=== PATIENT | male | born 1955 | race Caucasian/White ===

== ENCOUNTER 2016-09-02 10:25 | Observation (INO) | payer MEDICARE, OTHER ==
[~2016-09-02] VITALS: Ht 165.1 cm; Wt 83.8 kg
[~2016-09-02 10:25] MED LIST: ASPI81CH CHEW; CIPR-9 PO; GLUCTES12; HUMALOG SQ; HYDR-3583 PO; IPRASOL INH; LEVEMIR SQ; LISI2.5T3 PO; LYRI200C PO; METF-382 PO; OXYBXL10 PO; PRED20 PO; SYMB80AE INH; TAMS5CAP PO; [UNRECOGNIZED DRUG - SUPPLY]
[2016-09-02] MEDS ORDERED: POVIDONE IODINE 5% (ANTISEPSIS KIT) 4 APPLICATIONS EACH NARE PRN (11:00)
[2016-09-02] MEDS ORDERED: ceFAZolin 2 GM PREMIX 50 ML IV SCH (11:00)
[2016-09-02] MEDS ORDERED: LACTATED RINGER'S 1000 ML IV PRN (11:00)
[2016-09-02] MEDS ORDERED: SODIUM CHLORID 0.9% 500 ML IV PRN (11:00)
[2016-09-02] MEDS ORDERED: METOPROLOL TARTRATE 25 MG TAB PO PRN (11:00)
[2016-09-02] MEDS ORDERED: INSULIN HUMAN REGULAR 1,000 UNITS/10 ML VIAL SQ PRN ×2 (11:00→14:00)
[2016-09-02] MEDS ORDERED: CHLORHEXIDINE GLUCONATE 2 % 1 PACK (2 CLOTHS) TOPICAL PRN (11:00)
[2016-09-02 11:15] VITALS: BP 164/86; PULSE 92; RESP 18; TEMP 98.6; O2SAT 96
[2016-09-02 11:48] LABS: AUTOMATED NEUTROPHIL # 10.2 TH/MM3 (1.8-7.7); BASOPHIL # 0.1 TH/MM3 (0-0.2); BASOPHIL % 0.5 % (0.0-2.0); EOSINOPHIL # 0.2 TH/MM3 (0-0.4); EOSINOPHIL % 1.6 % (0.0-4.0); HEMATOCRIT 41.1 % (39.0-51.0); HEMO FLAGS DIFF FINAL; LYMPH % 15.3 % (9.0-44.0); LYMPHOCYTE # 2.1 TH/MM3 (1.0-4.8); MEAN CELL VOLUME 80.8 FL (80.0-100.0); MEAN CORPUSCULAR HEMOGLOBIN 26.9 PG (27.0-34.0); MEAN CORPUSCULAR HGB CONC 33.3 % (32.0-36.0); MONO % 6.9 % (0.0-8.0); NEUT % 75.7 % (16.0-70.0); PLATELET COUNT 206 TH/MM3 (150-450); RED BLOOD COUNT 5.09 MIL/MM3 (4.50-5.90); RED CELL DISTRIBUTION WIDTH 14.6 % (11.6-17.2); WHITE BLOOD COUNT 13.5 TH/MM3 (4.0-11.0)
[2016-09-02] MEDS ORDERED: PROPOFOL 200 MG/20 ML AMP IV ONE (12:00)
[2016-09-02] MEDS ORDERED: ONDANSETRON HCL 4 MG/2 ML VIAL IV PUSH ONE (12:00)
[2016-09-02] MEDS ORDERED: FAMOTIDINE 20 MG/2 ML VIAL ONE (12:08)
[2016-09-02] MEDS ORDERED: RESP: ALBUTEROL 2.5 MG/3 ML NEB (SCH) ONE (12:11)
[2016-09-02] MEDS ORDERED: methylPREDNISolone SOD SUCC 125 MG/2 ML VIAL ONE (12:12)
[2016-09-02] MEDS ORDERED: SUGAMMADEX SODIUM 200 MG/2 ML VIAL IV PUSH ONE ×2 (12:49)
[2016-09-02] MEDS ORDERED: BUPIVACAINE HCL PF 0.5% 30 ML VIAL ONE (12:56)
[2016-09-02] MEDS ORDERED: ACETAMINOPHEN/HYDROcodone 325 MG/7.5 MG TAB PO PRN (14:00)
--- NOTE | 2016-09-02 14:08 | PD.OP ---
Operative Report Date of Surgery: Sep 02, 2016 Preoperative Diagnosis: Scrotal abscess Postoperative Diagnosis: Same Procedure: I and D of scrotal abscess Anesthesia: Gen. LMA Surgeon: Juan Ramon Herrera Drill Hand(s): None Resident Surgeon: None Operation and Findings: Vin Lopez is a 61-year-old male presented to the office yesterday with right sided scrotal swelling and pain. On physical exam, it appeared that he had a right scrotal abscess. This was then later confirmed on ultrasound findings. Decision was made then to bring the patient to the operating room to undergo I and D of scrotal abscess. Risk and benefits were discussed preoperatively and he is willing to proceed. The patient was brought to the operating room and identified by myself as Vin Lopez. He was placed in the dorsal lithotomy position, prepped and draped in usual sterile fashion, received preprocedure antibiotics, and general LMA anesthesia was administered. 15 blade was used to make the opening incision over the right scrotal wall area. Pus was then noted to drain and a culture was sent. The pocket was then evacuated of all purulent material and then washed out with a bulb syringe with normal saline. Half-inch iodoform packing was then placed into the wound and then scrotal support with fluffs were then placed. He tolerated the procedure well was transferred to the recovery room in stable condition. Juan Ramon Herrera DO Sep 02, 2016 14:08
[2016-09-02] MEDS ORDERED: DO NOT ADM ANY ANTICOAGULANT DRUGS PRN (14:15)
[2016-09-02] MEDS ORDERED: fentaNYL CITRATE 250 MCG/5 ML AMP ONE (14:23)
[2016-09-02] MEDS: SODIUM CHLOR 0.45% 1000 ML INJ 1,000 ML IV SCH (14:30)
--- NOTE | 2016-09-02 15:00 | EKG ---
Date Performed: 09/02/2016 Time Performed: 11:31:03 PTAGE: 61 years EKG: Sinus rhythm WITH FIRST DEGREE AV BLOCK WITH FREQUENT SUPRAVENTRICULAR PREMATURE COMPLEXES INCOMPLETE RIGHT BUNDL E BRANCH BLOCK SEPTAL MYOCARDIAL INFARCTION , PROBABLY OLD ABNORMAL ECG PREVIOUS TRACING : 02/03/2016 14.09 DOCTOR: Harley Costa Interpretating Date/Time 09/02/2016 14:59:19
[2016-09-02] MEDS: BUDESONIDE-FORMOTEROL 80/4.5 MCG INHALER INH SCH ×2 (15:15→21:00)
[2016-09-02] MEDS: RESP: ALBUTEROL 2.5 MG/IPRATROPIUM 0.5 MG NEB (SCH) NEB (16:00)
[2016-09-02 16:35] VITALS: BP 152/73; PULSE 92; RESP 18; TEMP 97.6; O2SAT 93
[2016-09-02] MEDS: TAMSULOSIN HCL 0.4 MG CAP PO SCH ×2 (16:55→20:19)
[2016-09-02] MEDS: LOW DOSE INSULIN NOVOLOG SUPPLEMENTAL SCALE SQ SCH ×2 (18:12→20:30)
[2016-09-02] MEDS ORDERED: DEXTROSE 50% IN WATER 50 ML VIAL(D50) IV PUSH PRN (18:15)
[2016-09-02] MEDS ORDERED: GLUCAGON 1 MG/ML VIAL OTHER PRN (18:15)
[2016-09-02 20:00] VITALS: BP 135/67; PULSE 101; RESP 22; TEMP 98.7; O2SAT 92
[2016-09-02] MEDS: ceFAZolin 2 GM PREMIX 50 ML IV SCH (20:19)
[2016-09-02] MEDS: PREGABALIN 100 MG CAP PO SCH (20:19)
[2016-09-02] MEDS: INSULIN DETEMIR 100 UNITS/ML VIAL SQ SCH (20:30)
[2016-09-02] MEDS ORDERED: guaiFENesin SOLUTION 200 MG/10 ML CUP PO PRN (22:15)
[2016-09-03] VITALS: BP 135/76; PULSE 98; RESP 22; TEMP 97.6; O2SAT 94
[2016-09-03] MEDS: MORPHINE SULFATE 4 MG/ML INJ IV PUSH PRN ×3 (01:52→09:23)
[2016-09-03] MEDS: SODIUM CHLOR 0.45% 1000 ML INJ 1,000 ML IV SCH ×2 (02:02→11:00)
[2016-09-03] MEDS: ceFAZolin 2 GM PREMIX 50 ML IV SCH ×2 (04:15→11:32)
[2016-09-03] MEDS: LOW DOSE INSULIN NOVOLOG SUPPLEMENTAL SCALE SQ SCH ×2 (05:34→11:35)
[2016-09-03] MEDS: RESP: ALBUTEROL 2.5 MG/IPRATROPIUM 0.5 MG NEB (SCH) NEB ×2 (07:47→11:13)
--- NOTE | 2016-09-03 07:48 | HHI.FF ---
Face to Face Verification Physical Therapy Order: Evaluate and Treat Home Health Nursing Order: Medical education Diabetic education Wound care and dressing changes (change packing daily with 1/2 iodoform gauze; ) Home Health Aide Order: To Assist In: Bathing and personal care Ink Jet Operator Order: To Evaluate: Support services I have seen patient Vin Blair on 09/03/16. My clinical findings support the need for the requested home health care services because: Patient has SOB Infection w/ risk of complications I certify that my clinical findings support that this patient is homebound because: Post-op weakness Hx COPD- exertion dyspnea/weakness Juan Ramon Herrera DO Sep 03, 2016 07:48
[2016-09-03 07:49] VITALS: O2SAT 94
[2016-09-03 08:00] VITALS: BP 119/59; PULSE 86; RESP 17; TEMP 97.9; O2SAT 92
--- NOTE | 2016-09-03 08:07 | HHI.PR ---
Subjective Patient symptoms today Pt seen and examined. Feeling better s/p I&D Objective Vital Signs Vital Signs Date Time Temp Pulse Resp B/P Pulse Ox O2 Delivery O2 Flow Rate FiO2 09/03/16 08:00 97.9 86 17 119/59 92 09/03/16 07:49 94 Nasal Cannula 3.00 09/03/16 01:08 Nasal Cannula 3.00 09/03/16 00:00 97.6 98 22 135/76 94 09/02/16 20:13 92 Nasal Cannula 2.00 09/02/16 20:00 98.7 101 22 135/67 92 09/02/16 16:35 97.6 92 18 152/73 93 09/02/16 16:00 98.2 89 19 140/67 96 Nasal Cannula 3 09/02/16 15:45 90 19 137/65 95 Nasal Cannula 3 09/02/16 15:30 86 19 140/75 97 Nasal Cannula 8 Aerosol Mask 09/02/16 15:15 89 17 147/73 95 Nasal Cannula 3 09/02/16 15:00 85 17 138/71 95 Nasal Cannula 3 09/02/16 14:45 85 17 134/66 95 Simple Mask 6 09/02/16 14:30 91 16 149/72 95 Simple Mask 6 09/02/16 14:15 97.4 96 16 154/72 97 Simple Mask 6 09/02/16 11:15 98.6 92 18 164/86 96 Result Diagram: 09/02/16 1115 Objective Remarks Abd:soft,nt,nd Wound: packing in place Medications and IVs Current Medications Medications (Trade) Dose Ordered Sig/Lela Route Start Time Stop Time Status Last Admin (Ancef 2 Gm Premix) 50 ml @ 100 mls/hr Q8H IV 09/02/16 20:00 09/03/16 04:15 ([place] 7.5-325 Mg) 1 tab Q4H PRN PO 09/02/16 14:00 Morphine Sulfate 1 mg 1 mg Q3H PRN IV PUSH 09/02/16 14:00 09/03/16 05:30 (1/2 NS 1000 ml Inj) 1,000 ml @ 100 mls/hr Q10H IV 09/02/16 15:00 09/03/16 02:02 (Prinivil) 2.5 mg DAILY PO 09/03/16 09:00 (Levemir Inj) 24 units Q12HR SQ 09/02/16 21:00 09/02/16 20:30 (Deltasone) 20 mg DAILY PO 09/03/16 09:00 (Symbicort 80-4.5 Mcg Inh) 1 puff Q12HR INH 09/02/16 15:15 (Lyrica) 200 mg Q12HR PO 09/02/16 21:00 09/02/16 20:19 (Flomax) 0.4 mg Q12HR PO 09/02/16 15:15 09/02/16 20:19 (NovoLIN R INJ) 1 units DAILY@08 PRN SQ 09/02/16 14:00 09/03/16 13:59 Miscellaneous Information ALL NURSING DEPARTME... UNSCH PRN .XX 09/02/16 14:15 09/03/16 14:14 (D50w (Vial) Inj) 25 ml UNSCH PRN IV PUSH 09/02/16 18:15 (Glucagon Inj) 1 mg UNSCH PRN OTHER 09/02/16 18:15 (Robitussin Liq) 600 mg Q6H PRN PO 09/02/16 22:15 09/03/16 01:53 Assessment and Plan Assessment and Plan Stable s/p I&D of scrotal abcess D/C home VNA for packing changes Juan Ramon Herrera DO Sep 03, 2016 08:07
[2016-09-03] MEDS ORDERED: HYDR-3288 PO (08:25)
[2016-09-03] MEDS: BUDESONIDE-FORMOTEROL 80/4.5 MCG INHALER INH SCH (09:00)
[2016-09-03] MEDS ORDERED: LISINOPRIL 5 MG TAB PO SCH (09:00)
[2016-09-03] MEDS ORDERED: predniSONE 20 MG TAB PO SCH (09:00)
[2016-09-03] MEDS: TAMSULOSIN HCL 0.4 MG CAP PO SCH (09:06)
[2016-09-03] MEDS: PREGABALIN 100 MG CAP PO SCH (09:06)
[2016-09-03] MEDS: INSULIN DETEMIR 100 UNITS/ML VIAL SQ SCH (09:14)
[2016-09-03 11:14] VITALS: O2SAT 96
[2016-09-03 12:00] VITALS: BP 133/61; PULSE 88; RESP 18; TEMP 97.3; O2SAT 94
[2016-09-03 14:15] VITALS: O2SAT 97
[2016-09-06] MEDS ORDERED: TAMS5CAP PO (14:55)
== END 2016-09-03 15:21 | disposition home or self-care (01) ==
LOC: HSDC 10:25 → N07B 14:04
PROVIDERS: ADMIT Urology; ATTEND Urology
DX: N49.2 Inflammatory disorders of scrotum (principal); I44.0 Atrioventricular block, first degree; I45.10 Unspecified right bundle-branch block; R94.31 Abnormal electrocardiogram [ECG] [EKG]; I25.2 Old myocardial infarction; I10 Essential (primary) hypertension; E78.5 Hyperlipidemia, unspecified; I73.9 Peripheral vascular disease, unspecified; J44.9 Chronic obstructive pulmonary disease, unspecified; E11.9 Type 2 diabetes mellitus without complications
CPT/HCPCS: 00920; 55100; 82948; 85025; 87015; 87070; 87102; 87116; 87205; 87206; 93005; 94640; 94664; G0378; J0690; J1815; J2270; J2405; J2930; J3010; J7120; J7512; J7613

== ENCOUNTER 2016-09-25 12:23 | Inpatient (IN) | payer MEDICARE, OTHER ==
[~2016-09-25] VITALS: Ht 165.1 cm; Wt 87.0 kg
[~2016-09-25 12:23] MED LIST changes: -ASPI81CH CHEW; -CIPR-9 PO; +HYDR-3288 PO; +HYDR-3533 PO; -HYDR-3583 PO; -METF-382 PO; +NYST100084 TOPICAL; -OXYBXL10 PO; +SULF1TAB23 PO
[2016-09-25] MEDS ORDERED: SODIUM CHLOR 0.9% 1000 ML INJ 1,000 ML IV SCH (12:31)
[2016-09-25 12:35] VITALS: BP 179/88; PULSE 94; RESP 16; TEMP 98.1; O2SAT 95
[2016-09-25 12:45] VITALS: O2SAT 95
[2016-09-25] MEDS ORDERED: ONDANSETRON HCL 4 MG/2 ML VIAL IVP ONE (12:45)
[2016-09-25] MEDS ORDERED: MORPHINE SULFATE 4 MG/ML INJ IV PUSH ONE ×2 (12:45→15:00)
--- NOTE | 2016-09-25 13:12 | PD ---
HPI Chief Complaint: Abnormal Results Time Seen by Provider: 13:11 Travel History International Travel<30 days: No Contact w/Intl Traveler<30days: No Traveled to known affect area: No History of Present Illness HPI 61-year-old male that presents to the ED for evaluation of hyperglycemia as well as testicular pain and swelling. Per patient he has a chronic history of diabetes for years. He takes NovoLog an metformin. Per patient she's been compliant with his medications but his sugars have been in the 400s. He denies any chest pain or shortness of breath. He states that he's been feeling weak. Per patient he also had recent surgery about 2-3 weeks ago for incision and drainage of abscess to his right testicle. Per patient he follows with Dr. Herrera for this. Per patient he last saw him about a week or 2 ago and was everything was fine. Per patient is concerned because he still has swelling and redness and it seems to be getting more swelling now. He does have a history of MRSA. States taking pain medications and his insulin as well as metformin daily. He states that his blood sugars have been in the 400 600s daily. He denies any history of DKA. He states that for the most per his been feeling weak for the past week but denies any nausea or vomiting. No bowel movement issues. No urinary issues alert and oliguria secondary to unknown cause. Patient states that he has 5 out of 10 pain in his testicles. PFSH Past Medical History Hx Anticoagulant Therapy: Yes Arthritis: Yes (rue) Asthma: Yes Blood Disorders: No Anxiety: Yes Depression: No Heart Rhythm Problems: Yes (arrythmia ) Cancer: No Cardiovascular Problems: Yes (htn, palpitations) High Cholesterol: Yes Chemotherapy: No Chest Pain: Yes Congestive Heart Failure: No COPD: No Diabetes: Yes Patient Takes Glucophage: Yes Diminished Hearing: No Endocrine: Yes Gastrointestinal Disorders: Yes (GERD, ulcers, appendectomy, ) GERD: Yes Glaucoma: No Genitourinary: Yes (fistula ) Hepatitis: No Hiatal Hernia: No Hypertension: Yes Immune Disorder: No Medical other: Yes (penial edema also the scrotal area) Musculoskeletal: No Neurologic: No Psychiatric: Yes Reproductive: No Respiratory: Yes (copd) Radiation Therapy: No Sleep Apnea: Yes Thyroid Disease: No Ulcer: Yes Influenza Vaccination: No Past Surgical History Abdominal Surgery: Yes (APPY) AICD: No Appendectomy: Yes Body Medical Devices: LEG STENT kieran, Genitourinary Surgery: Yes (TURP ; 08/14 CYSTOSCOPY; 10/14 EUA) Joint Replacement: No Pacemaker: No Other Surgery: Yes Social History Alcohol Use: No Tobacco Use: Yes (1 PPD of cigaretts and cigars) Substance Use: No Allergies-Medications (Allergen,Severity, Reaction): Coded Allergies: Gabapentin (Verified Adverse Reaction, Severe, Chest gets tight and he feels lightheaded., 09/25/16) Lantus (Verified Adverse Reaction, Severe, Patient claims severe burning with even low doses. , 09/25/16) Aspirin (Verified Adverse Reaction, Intermediate, UPSET STOMACH Can take coated , 09/25/16) PATIENT DENIES ALLERGY, SAYS IF HE TAKES UNCOATED ASA HE GETS UPSET STOMACH. 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 Lisinopril 2.5 Mg Tab 2.5 Mg PO DAILY Reported Lortab (Hydrocodone-Acetaminophen) 5-325 Mg Tab 1 Tab PO Q4H PRN Duoneb (Ipratropium-Albuterol Neb) 0.5-2.5 Mg/3 Ml Neb 1 Nebule INH Q8HR NEB Review of Systems Except as stated in HPI: all other systems reviewed are Neg Physical Exam Narrative GENERAL: SKIN: Warm and dry. HEAD: Atraumatic. Normocephalic. EYES: Pupils equal and round. No scleral icterus. No injection or drainage. ENT: No nasal bleeding or discharge. Mucous membranes pink and moist. Tongue is midline. No uvula deviation. NECK: Trachea midline. No JVD. CARDIOVASCULAR: Regular rate and rhythm. No murmurs, S3, S4. RESPIRATORY: No accessory muscle use. Clear to auscultation. Breath sounds equal bilaterally. GASTROINTESTINAL: Abdomen soft, non-tender, nondistended. Hepatic and splenic margins not palpable. MUSCULOSKELETAL: Extremities without clubbing, cyanosis, or edema. No obvious deformities. Full range of motion of the upper and lower extremities bilaterally. 2+ pulses bilaterally. Patient does have swelling noted on the shaft of the penis as well as on the testicles bilaterally. Right worse than left. Patient does have some erythema noted and warmness to touch on the right testicle compared to the left. NEUROLOGICAL: Awake and alert. No obvious cranial nerve deficits. Motor grossly within normal limits. Five out of 5 muscle strength in the arms and legs. Normal speech. PSYCHIATRIC: Appropriate mood and affect; insight and judgment normal. Data Data Last Documented VS Vital Signs Date Time Temp Pulse Resp B/P Pulse Ox O2 Delivery O2 Flow Rate FiO2 09/25/16 12:45 95 Room Air 09/25/16 12:35 98.1 94 16 179/88 Orders Electrocardiogram (09/25/16 12:31) Complete Blood Count With Diff (09/25/16 12:31) Basic Metabolic Panel (Bmp) (09/25/16 12:31) Prothrombin Time / Inr (Pt) (09/25/16 12:31) Act Partial Throm Time (Ptt) (09/25/16 12:31) Urinalysis - C+S If Indicated (09/25/16 12:31) Magnesium (Mg) (09/25/16 12:31) Beta Hydroxybutyrate (Acetone) (09/25/16 12:31) Thyroid Stimulating Hormone (09/25/16 12:31) Iv Access Insert/Monitor (09/25/16 12:31) Ecg Monitoring (09/25/16 12:31) Oximetry (09/25/16 12:31) Morphine Inj (Morphine Inj) (09/25/16 12:45) Ondansetron Inj (Zofran Inj) (09/25/16 12:45) Sodium Chlor 0.9% 1000 Ml Inj (Ns 1000 M (09/25/16 12:31) Us Testicles W Doppler (09/25/16 ) C-Reactive Protein (Crp) (09/25/16 12:34) Lactic Acid (09/25/16 12:34) Ct Pelvis W Iv Contrast(Rout) (09/25/16 ) Cath For Specimen (09/25/16 14:55) Morphine Inj (Morphine Inj) (09/25/16 15:00) Iohexol 350 Inj (Omnipaque 350 Inj) (09/25/16 15:29) Vancomycin Inj (Vancomycin Inj) (09/25/16 15:30) Piperacil-Tazo 3.375 Gm Premix (Zosyn 3. (09/25/16 15:30) Admit Order (Ed Use Only) (09/25/16 15:54) Labs Laboratory Tests Test 09/25/16 12:55 White Blood Count 12.3 TH/MM3 Red Blood Count 5.04 MIL/MM3 Hemoglobin 13.8 GM/DL Hematocrit 41.5 % Mean Corpuscular Volume 82.2 FL Mean Corpuscular Hemoglobin 27.4 PG Mean Corpuscular Hemoglobin 33.3 % Concent Red Cell Distribution Width 14.7 % Platelet Count 236 TH/MM3 Mean Platelet Volume 8.7 FL Neutrophils (%) (Auto) 70.2 % Lymphocytes (%) (Auto) 20.5 % Monocytes (%) (Auto) 7.5 % Eosinophils (%) (Auto) 1.2 % Basophils (%) (Auto) 0.6 % Neutrophils # (Auto) 8.6 TH/MM3 Lymphocytes # (Auto) 2.5 TH/MM3 Monocytes # (Auto) 0.9 TH/MM3 Eosinophils # (Auto) 0.1 TH/MM3 Basophils # (Auto) 0.1 TH/MM3 CBC Comment DIFF FINAL Differential Comment Prothrombin Time 10.2 SEC Prothromb Time International 0.9 RATIO Ratio Activated Partial 23.9 SEC Thromboplast Time Sodium Level 136 MEQ/L Potassium Level 4.2 MEQ/L Chloride Level 103 MEQ/L Carbon Dioxide Level 25.4 MEQ/L Anion Gap 8 MEQ/L Blood Urea Nitrogen 37 MG/DL Creatinine 1.00 MG/DL Estimat Glomerular Filtration 76 ML/MIN Rate Random Glucose 298 MG/DL Lactic Acid Level 1.6 mmol/L Calcium Level 8.5 MG/DL Magnesium Level 1.9 MG/DL C-Reactive Protein LESS THAN 0.29 MG/DL Thyroid Stimulating Hormone 1.600 uIU/ML 3rd Gen B-Hydroxybutyrate 0.09 MMOL/L MDM Medical Decision Making Medical Screen Exam Complete: Yes Emergency Medical Condition: Yes Medical Record Reviewed: Yes Interpretation(s) CBC & BMP Diagram 09/25/16 12:55 acetone WNL lactic acid and CRP low Differential Diagnosis Testicular abscess versus cellulitis versus hyperglycemia versus DKA versus sepsis versus normal exam Narrative Course 61-year-old male that presents to the ED for evaluation of hyperglycemia and possible infection. Patient was properly examined and was found signs and symptoms consistent appears to be infection of the testicles as well as hyperglycemia. Blood sugar here actually appears to be in the 200s. Patient does appear to have testicular mass and swelling. Patient states for labs and imaging. Labs and imaging showed elevated levels exam otherwise unremarkable. Concerning for infection. My attending Dr. Shell about the patient is also concerned about fornices gangrene versus cellulitis. Patient is diabetic. Recommendation this time is for admission for FOR IV antibiotics and may be urology consult. Case discussed with residents who agreed admission to Dr. Pierre. Diagnosis Primary Impression: Cellulitis Qualified Code: L03.90 - Cellulitis, unspecified cellulitis site Additional Impression: DM type 2, uncontrolled, with neuropathy Admitting Information Admitting Physician Requests: Jose F Jeronimo Sep 25, 2016 13:12
[2016-09-25 13:17] LABS: AUTOMATED NEUTROPHIL # 8.6 TH/MM3 (1.8-7.7); BASOPHIL # 0.1 TH/MM3 (0-0.2); BASOPHIL % 0.6 % (0.0-2.0); EOSINOPHIL # 0.1 TH/MM3 (0-0.4); EOSINOPHIL % 1.2 % (0.0-4.0); HEMATOCRIT 41.5 % (39.0-51.0); HEMO FLAGS DIFF FINAL; LYMPH % 20.5 % (9.0-44.0); LYMPHOCYTE # 2.5 TH/MM3 (1.0-4.8); MEAN CELL VOLUME 82.2 FL (80.0-100.0); MEAN CORPUSCULAR HEMOGLOBIN 27.4 PG (27.0-34.0); MEAN CORPUSCULAR HGB CONC 33.3 % (32.0-36.0); MONO % 7.5 % (0.0-8.0); NEUT % 70.2 % (16.0-70.0); PLATELET COUNT 236 TH/MM3 (150-450); RED BLOOD COUNT 5.04 MIL/MM3 (4.50-5.90); RED CELL DISTRIBUTION WIDTH 14.7 % (11.6-17.2); WHITE BLOOD COUNT 12.3 TH/MM3 (4.0-11.0)
[2016-09-25 13:27] LABS: APTT (PATIENT) 23.9 SEC (24.3-30.1); INTERNATIONAL NORMALIZED RATIO 0.9 RATIO; PROTHROMBIN TIME - PATIENT 10.2 SEC (9.8-11.6)
[2016-09-25 13:31] LABS: BICARBONATE 25.4 MEQ/L (21.0-32.0); MAGNESIUM 1.9 MG/DL (1.5-2.5); POTASSIUM 4.2 MEQ/L (3.5-5.1)
[2016-09-25 13:40] LABS: BETA-HYDROXYBUTYRATE 0.09 MMOL/L (0.00-0.39)
--- NOTE | 2016-09-25 14:53 | RADRPT ---
EXAM DATE/TIME: 09/25/2016 13:57 [facility] COMPARISON: No previous studies available for comparison. INDICATIONS : Testicle pain. MEDICAL HISTORY : Gastroesophageal reflux disease. Hypercholesterolemia. Transient ischemic attack. Asthma. Dyspnea. Hypertension. Ulcer. Nephrolithiasis. Arthritis. Anxiety. SURGICAL HISTORY : Appendectomy. Right elbow ORIF. TURP. Cystoscopy. EUA. ENCOUNTER: Initial ACUITY: 1 month PAIN SCORE: 10/10 LOCATION: Bilateral testicle. MEASUREMENTS: RIGHT TESTICLE: 3.8 x 2.9 x 1.7cm LEFT TESTICLE: 3.4 x 3.1 x 1.7cm FINDINGS: RIGHT TESTICLE: Homogeneous echotexture without intra or extratesticular mass. Blood flow is symmetric and within no rmal limits. No hydrocele or varicocele. Epididymis is within normal limits. LEFT TESTICLE: Homogeneous echotexture without intra or extratesticular mass, however there is a small area of calci fication which measures 4 mm in the lower portion benign appearance. Blood flow is symmetric and wit hin normal limits. No hydrocele or varicocele. Epididymis is within normal limits. SCROTUM: Within normal limits. CONCLUSION: Unremarkable study except for benign calcification involving the left testicle could be in the testic le itself or possibly outside of it. Jolanta Smith MD on September 25, 2016 at 14:50 Board Certified Radiologist. This report was verified electronically.
[2016-09-25] MEDS ORDERED: IOHEXOL 350 MG/ML 10 ML VIAL (for RAD DIAG) IV ONE (15:29)
[2016-09-25] MEDS ORDERED: VANCOMYCIN INJ 1,000 MG in SODIUM CHLOR 0.9% 250 ML INJ 250 ML IV ONE (15:30)
[2016-09-25] MEDS ORDERED: PIPERACIL-TAZO 3.375 GM PREMIX 50 ML IV ONE (15:30)
[2016-09-25 15:35] VITALS: BP 119/65; PULSE 81; RESP 15; O2SAT 95
--- NOTE | 2016-09-25 15:43 | RADRPT ---
EXAM DATE/TIME: 09/25/2016 15:07 [facility] COMPARISON: No previous studies available for comparison. INDICATIONS : Testicular pain and swelling for one month. IV CONTRAST: 91 cc Omnipaque 350 (iohexol) IV ORAL CONTRAST: No oral contrast ingested. RADIATION DOSE: 10.68 CTDIvol (mGy) MEDICAL HISTORY : Stroke. Hypertension. diabetes SURGICAL HISTORY : Appendectomy. ENCOUNTER: Initial ACUITY: 1 month PAIN SCALE: 5/10 LOCATION: Bilateral testicles TECHNIQUE: Volumetric scanning of the pelvis was performed. Using automated exposure control and adjustment of t he mA and/or kV according to patient size, radiation dose was kept as low as reasonably achievable to obtain optimal diagnostic quality images. DICOM format image data is available electronically for review and comparison. FINDINGS: BOWEL/MESENTERY: The visualized small and large bowel demonstrate no acute abnormality. There is no free fluid. Right kidney ectopic. BLADDER: There is no wall thickening or mass. There is air in the bladder. RETROPERITONEUM: There is no aneurysm or lymphadenopathy. REPRODUCTIVE: Wall thickening of the scrotum. INGUINAL: There is no lymphadenopathy or hernia. MUSCULOSKELETAL: Within normal limits for patient age. CONCLUSION: 1. Air in the bladder could be acu genic or infectious. Urinalysis recommended. 2. Scrotal wall thickening. 3. Low lying right kidney. Flip Sandy MD on September 25, 2016 at 15:38 Board Certified Radiologist. This report was verified electronically.
[2016-09-25 16:00] LABS: BACTERIA, URINE FEW /hpf; BLOOD, URINE TRACE (NEG); COMMENT (UR) CULTURE INDICATED; CULTURE IF INDICATED CULTURE INDICATED; GLUCOSE,URINE 1000 mg/dL (NEG); KETONE, URINE NEG (NEG); MUCUS URINE FEW /lpf (OCC); PH, URINE 5.5 (5.0-8.5); SQUAMOUS EPITHELIAL CELL URINE 1 /hpf (0-5); URINE COLOR YELLOW (YELLW/STRAW)
[2016-09-25 16:01] LABS: NITRITE,URINE POS (NEG)
--- NOTE | 2016-09-25 16:14 | HHI.HP ---
[facility] Service Family Medicine Primary Care Physician Edenilson Hoang MD Admission Diagnosis scrotal cellulitis, groin swelling, hyperglycemia Diagnoses: Chief Complaint: groin swelling International Travel<30 Days: No Contact w/Intl Traveler<30days: No Known Affected Area: No History of Present Illness 61-year-old male with history of diabetes since with scrotal swelling. Patient patient had a incision and drainage of scrotal abscess on September [address] Herrera. He was sent home on Bactrim. Patient states weeks after the surgery, he started feeling worse. States he started having penile swelling testicle swelling. He was recommended to start ointment after seeing Dr. Herrera , but did not use any of it. He states it is painful, especially when moving. States the pain is 5 out of 10. Dorsal some drainage. No issues with urination. Is having some dysuria. Has any rash or swelling anywhere else. Has a history of MRSA. Has any fever/chills, night sweats, chest pain, pain in his legs. Endorses cough and shortness of breath. No abdominal pain, constipation/ diarrhea. He also mentions that his sugars were running high recently. States it was 660 at home. He checks it several times a day. Insulin in the morning and evening and sliding scale. He stopped taking his insulin on Tuesday this week. Says he felt tired and didn't want to take it anymore. Review of Systems Constitutional: DENIES: Fever, Chills Eyes: DENIES: Vision loss, Double Vision Ears, nose, mouth, throat: DENIES: Hearing loss, Oral lesions Respiratory: COMPLAINS OF: Cough, Shortness of breath Cardiovascular: DENIES: Chest pain, Palpitations Gastrointestinal: DENIES: Abdominal pain, Black stools, Bloody stools, Constipation, Diarrhea, Nausea, Vomiting Genitourinary: COMPLAINS OF: Dysuria, Testicular Pain, Testicular Swelling Integumentary: COMPLAINS OF: Pruritus, Rash Hematologic/lymphatic: DENIES: Bruising, Lymphadenopathy Neurologic: DENIES: Abnormal gait, Headache Past Family Social History Past Medical History DM PAD HTN COPD Scrotal abscess Past Surgical History I&D of scrotal abscess 09/02/162007 - Perianal Abscess; Tx'd by Dr Davidson Reconstruction of urethral cutaneous fistula TURP LE stents due to PVD Suprapubic catheter s/p removal Reported Medications Reported Meds & Active Scripts Active Nystatin Topical 100,000 unit/gm Oint 1 Applic TOPICAL Q12HR Sulfamethoxazole-Trimethoprim 800-160 Mg Tab 1 Tab PO BID Flomax (Tamsulosin HCl) 0.4 Mg Cap 0.4 Mg PO HS Lyrica (Pregabalin) 200 Mg Cap 200 Mg PO BID Symbicort Inh (Budesonide/Formoterol Fumarate) 80-4.5 Mcg/Act Aero 1 Puff INH Q12HR Humalog Inj (Insulin Human Lispro) 1,000 Unit/10 Ml Vial 2-7 Units SQ TIDACHS Levemir Inj (Insulin Detemir) 1,000 unit/ 10 ML Vial 24 Units SQ BID Do not mix with any other Insulin. Lisinopril 2.5 Mg Tab 2.5 Mg PO DAILY Reported Lortab (Hydrocodone-Acetaminophen) 5-325 Mg Tab 1 Tab PO Q4H PRN Duoneb (Ipratropium-Albuterol Neb) 0.5-2.5 Mg/3 Ml Neb 1 Nebule INH Q8HR NEB Allergies: Coded Allergies: Gabapentin (Verified Adverse Reaction, Severe, Chest gets tight and he feels lightheaded., 09/25/16) Lantus (Verified Adverse Reaction, Severe, Patient claims severe burning with even low doses. , 09/25/16) Aspirin (Verified Adverse Reaction, Intermediate, UPSET STOMACH Can take coated , 09/25/16) PATIENT DENIES ALLERGY, SAYS IF HE TAKES UNCOATED ASA HE GETS UPSET STOMACH. 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) Active Ordered Medications Active Medications Iohexol 91 ml 91 ml STK-MED ONCE IV Last administered on 09/25/16 15:29; Admin Dose 91 ML; Start 09/25/16 at 15:29; Stop 09/25/16 at 15:30; Status DC Morphine Sulfate (Morphine Inj) 4 mg ONCE ONCE IV PUSH Last administered on 13:31; Admin Dose 4 MG; Start 09/25/16 at 12:45; Stop 09/25/16 at 12:46 ; Status DC Morphine Sulfate (Morphine Inj) 4 mg ONCE ONCE IV PUSH Last administered on 15:35; Admin Dose 4 MG; Start 09/25/16 at 15:00; Stop 09/25/16 at 15:10 ; Status DC Ondansetron HCl 4 mg 4 mg ONCE ONCE IVP Last administered on 09/25/16 13:31; Admin Dose 4 MG; Start 09/25/16 at 12:45; Stop 09/25/16 at 12:46; Status DC Piperacillin Sod/ Tazobactam Sod (Zosyn 3.375 Gm Premix) 50 ml @ 100 mls/hr ONCE ONCE IV Last administered on 09/25/16 15:49; Admin Dose 100 MLS/HR; Start 09/25/16 at 15:30; Stop 09/25/16 at 15:59; Status DC Sodium Chloride (NS 1000 ml Inj) 1,000 ml @ 1,000 mls/hr Q1H IV Last administered on 09/25/16 13:29; Admin Dose 1,000 MLS/HR; Start 09/25/16 at 12: 31; Stop 09/25/16 at 13:30; Status DC Vancomycin HCl 1000 mg/Sodium Chloride 250 ml @ 250 mls/hr ONCE ONCE IV; Start 09/25/16 at 15:30; Stop 09/25/16 at 16:29 Family History Father: ETOH Dec Mother: ETOH Dec Siblings: 4 Sisters Children: None Social History Tobacco: Alcohol Illicit drug use Physical Exam Vital Signs Vital Signs Date Time Temp Pulse Resp B/P Pulse Ox O2 Delivery O2 Flow Rate FiO2 09/25/16 12:45 95 Room Air 09/25/16 12:35 98.1 94 16 179/88 95 Room Air Physical Exam GENERAL: This is a well-nourished, well-developed patient, in no apparent distress. SKIN: Cool and dry. HEAD: Atraumatic. Normocephalic. EYES: Pupils equal round and reactive. Extraocular motions intact. No scleral icterus. No injection or drainage. ENT: Nose without discharge. Throat without erythema, tonsillar hypertrophy or exudate. Uvula midline. Airway patent. NECK: Trachea midline. No JVD or lymphadenopathy. CARDIOVASCULAR: Regular rate and rhythm without murmurs, gallops, or rubs. RESPIRATORY: Decreased breath sounds. Inspiratory and expiratory wheezing bilaterally. GASTROINTESTINAL: Abdomen soft, non-tender, nondistended. No hepato-splenomegaly , or palpable masses. No guarding. MUSCULOSKELETAL: Extremities without clubbing, cyanosis, or edema. No joint tenderness, effusion, or edema noted. No calf tenderness. : Penile swelling and testicular swelling present. Erythema throughout, extending into groin area bilaterally. Warm to touch and tender to touch diffusely. Catheter in place. NEUROLOGICAL: Awake and alert. Motor and sensory grossly within normal limits. Normal speech. Laboratory Laboratory Tests Test 09/25/16 09/25/16 12:55 15:36 White Blood Count 12.3 Red Blood Count 5.04 Hemoglobin 13.8 Hematocrit 41.5 Mean Corpuscular Volume 82.2 Mean Corpuscular Hemoglobin 27.4 Mean Corpuscular Hemoglobin 33.3 Concent Red Cell Distribution Width 14.7 Platelet Count 236 Mean Platelet Volume 8.7 Neutrophils (%) (Auto) 70.2 Lymphocytes (%) (Auto) 20.5 Monocytes (%) (Auto) 7.5 Eosinophils (%) (Auto) 1.2 Basophils (%) (Auto) 0.6 Neutrophils # (Auto) 8.6 Lymphocytes # (Auto) 2.5 Monocytes # (Auto) 0.9 Eosinophils # (Auto) 0.1 Basophils # (Auto) 0.1 CBC Comment DIFF FINAL Differential Comment Prothrombin Time 10.2 Prothromb Time International 0.9 Ratio Activated Partial 23.9 Thromboplast Time Sodium Level 136 Potassium Level 4.2 Chloride Level 103 Carbon Dioxide Level 25.4 Anion Gap 8 Blood Urea Nitrogen 37 Creatinine 1.00 Estimat Glomerular Filtration 76 Rate Random Glucose 298 Lactic Acid Level 1.6 Calcium Level 8.5 Magnesium Level 1.9 C-Reactive Protein LESS THAN 0.29 Thyroid Stimulating Hormone 1.600 3rd Gen B-Hydroxybutyrate 0.09 Urine Color YELLOW Urine Turbidity HAZY Urine pH 5.5 Urine Specific [place] 1.024 Urine Protein 100 Urine Glucose (UA) 1000 Urine Ketones NEG Urine Occult Blood TRACE Urine Nitrite POS Urine Bilirubin NEG Urine Urobilinogen LESS THAN 2.0 Urine Leukocyte Esterase LARGE Urine RBC 5 Urine WBC 44 Urine WBC Clumps MANY Urine Squamous Epithelial 1 Cells Urine Bacteria FEW Urine Mucus FEW Microscopic Urinalysis Comment CULTURE INDICATED Date/Time Procedure Status Source Growth 09/25/16 15:36 Urine Culture Received Urine Clean Catch Pending Result Diagram: 09/25/16 1255 09/25/16 1255 Imaging Last Impressions Scrotum Ultrasound 7/22/17 0000 Signed Impressions: Service Date/Time: Sunday, September 25, 2016 13:57 - CONCLUSION: Unremarkable study except for benign calcification involving the left testicle could be in the testicle itself or possibly outside of it. Jolanta Smith MD Pelvis CT 09/25/16 0000 Signed Impressions: Service Date/Time: Sunday, September 25, 2016 15:07 - CONCLUSION: 1. Air in the bladder could be acu genic or infectious. Urinalysis recommended. 2. Scrotal wall thickening. 3. Low lying right kidney. Flip Sandy MD Assessment and Plan Assessment and Plan 51-year-old male with history of diabetes and COPD presents with penile and testicle swelling after I&D. We will admit for IV antibiotics and consultation to urologist. Code Status Full Discussed Condition With Dr. Epps Problem List: (1) Cellulitis of scrotum Status: Acute Plan: Patient presents with swelling and redness of penis and scrotal area. I& D performed on September 02 due to scrotal abscess. The pain and swelling has been worsening. Some dysuria, but no obstructive urinary signs. Concern for Aaorn' s gangrene, but ultrasound and CT negative. Mild leukocytosis on admission and normal CRP. Was on Bactrim outpatient. Scrotal US: unremarkable, benign calcification on left testicle Pelvis CT: Air in bladder, scrotal wall thickening Given dose of Vanc/Zosyn in ED -Continue Vancomycin q12H, pharmacy consult -Continue Zosyn 3.375g q6h -Urology consult-appreciate recs -Pt known to Dr. Herrera -Blood culture pending (2) Diabetes Status: Acute Plan: History of chronic diabetes on insulin. Patient is on Levemir 24 units twice a day and Humalog sliding scale 3 times a day. Glucose 298 on admission. States he has stopped taking his insulin this week. -We will hold his home insulin at this time. -Sliding scale insulin -Monitor blood glucose levels -May need to restart basal insulin, depending on his levels (3) UTI (urinary tract infection) Status: Acute Plan: Patient with some dysuria on admission. UA shows 100 protein, 1000 glucose, positive nitrate, large leukocyte esterase, 44 WBCs, few bacteria Pelvis CT: air in the bladder, could be infectious -Rocephin 1g daily -Urine culture pending (4) COPD (chronic obstructive pulmonary disease) Status: Acute Plan: History of chronic COPD, on nebulizer, Symbicort, and 2 L of oxygen at home. -Continue Symbicort -DuoNeb's every 4 hours and albuterol when necessary (5) Hypertension Status: Acute Plan: History of hypertension. On lisinopril at home. BP 179/88 on admission, trended down to 119/65. -Continue home lisinopril -Hydralazine PRN (6) Tobacco abuse Status: Acute Plan: Pt smoking 1 PPD, not interested in quitting at this time -Counseled on risks of smoking and benefits of quitting (7) FEN Status: Acute Plan: Fluids: NS @ 125mls/hr Electrolytes: wnl, continue to monitor Nutrition: Diabetic diet DVT ppx: Lovenox Problem Qualifiers (1) Diabetes: Qualified Code: E11.59 - Type 2 diabetes mellitus with other circulatory complication, with long-term current use of insulin (2) UTI (urinary tract infection): Qualified Code: N30.00 - Acute cystitis without hematuria (3) COPD (chronic obstructive pulmonary disease): Qualified Code: J44.9 - Chronic obstructive pulmonary disease, unspecified COPD type (4) Hypertension: Qualified Code: I10 - Essential hypertension Pj Kelly MD R1 Sep 25, 2016 16:14
[2016-09-25] MEDS ORDERED: Vancomycin Consult Pharmacy 1 EA OTHER SCH (17:00)
[2016-09-25] MEDS ORDERED: SODIUM CHLORIDE 0.9% FLUSH 10 ML FLUSH IV FLUSH PRN (17:00)
[2016-09-25] MEDS ORDERED: NALOXONE HCL 0.4 MG/ML AMP IV PRN (17:15)
[2016-09-25] MEDS ORDERED: DEXTROSE 50% IN WATER 50 ML VIAL(D50) IV PRN (17:15)
[2016-09-25] MEDS ORDERED: GLUCAGON 1 MG/ML VIAL OTHER PRN (17:15)
[2016-09-25] MEDS ORDERED: cefTRIAXone INJ 1,000 MG in SODIUM CHLORIDE 0.9% INJ 100 ML IV SCH (18:00)
[2016-09-25] MEDS ORDERED: VANCOMYCIN INJ 1,000 MG in SODIUM CHLOR 0.9% 250 ML INJ 250 ML IV SCH (18:00)
[2016-09-25] MEDS: ENOXAPARIN SODIUM 40 MG/0.4 ML SYRINGE SQ SCH (18:05)
[2016-09-25] MEDS: SODIUM CHLOR 0.9% 1000 ML INJ 1,000 ML IV SCH (18:08)
[2016-09-25 18:11] VITALS: BP 127/71; PULSE 80; RESP 16; O2SAT 97
[2016-09-25] MEDS ORDERED: RESP: ALBUTEROL 2.5 MG/3 ML NEB (PRN) INH (19:00)
[2016-09-25] MEDS: RESP: ALBUTEROL 2.5 MG/IPRATROPIUM 0.5 MG NEB (SCH) INH ×2 (19:36→23:18)
[2016-09-25] MEDS: TAMSULOSIN HCL 0.4 MG CAP PO SCH (20:07)
[2016-09-25] MEDS: PREGABALIN 100 MG CAP PO SCH (20:07)
[2016-09-25] MEDS: ACETAMINOPHEN/HYDROcodone 325 MG/7.5 MG TAB PO PRN (20:08)
[2016-09-25] MEDS: SODIUM CHLORIDE 0.9% FLUSH 10 ML FLUSH IV FLUSH SCH (20:08)
[2016-09-25] MEDS: BUDESONIDE-FORMOTEROL 80/4.5 MCG INHALER INH SCH (20:08)
[2016-09-25 20:41] VITALS: BP 137/75; PULSE 77; RESP 18; TEMP 97.5; O2SAT 93
[2016-09-25] MEDS: PIPERACIL-TAZO 3.375 GM PREMIX 50 ML IV SCH (21:09)
[2016-09-25] MEDS: INSULIN ASPART SUPPLEMENTAL SCALE SQ SCH (21:15)
[2016-09-25 23:59] VITALS: BP 120/59; PULSE 80; RESP 18; TEMP 98.1; O2SAT 90
[2016-09-26] VITALS (7 sets, daily range): BP systolic 130–163; BP diastolic 63–73; PULSE 75–94; RESP 16–20; TEMP 97.3–98.6; O2SAT 95–98
[2016-09-26] MEDS: SODIUM CHLOR 0.9% 1000 ML INJ 1,000 ML IV SCH ×3 (02:58→21:36)
[2016-09-26] MEDS: RESP: ALBUTEROL 2.5 MG/IPRATROPIUM 0.5 MG NEB (SCH) INH ×4 (03:42→15:24)
[2016-09-26] MEDS: ACETAMINOPHEN/HYDROcodone 325 MG/7.5 MG TAB PO PRN ×2 (04:17→11:07)
[2016-09-26] MEDS: PIPERACIL-TAZO 3.375 GM PREMIX 50 ML IV SCH ×4 (04:17→21:41)
[2016-09-26] MEDS: VANCOMYCIN 1,500 MG/NS 500 ML IV SCH ×4 (04:18→22:30)
[2016-09-26 05:32] LABS: AUTOMATED NEUTROPHIL # 7.6 TH/MM3 (1.8-7.7); BASOPHIL % 0.4 % (0.0-2.0); EOSINOPHIL # 0.1 TH/MM3 (0-0.4); EOSINOPHIL % 1.2 % (0.0-4.0); HEMATOCRIT 37.2 % (39.0-51.0); HEMO FLAGS DIFF FINAL; LYMPH % 25.3 % (9.0-44.0); LYMPHOCYTE # 2.9 TH/MM3 (1.0-4.8); MEAN CELL VOLUME 83.2 FL (80.0-100.0); MEAN CORPUSCULAR HEMOGLOBIN 27.3 PG (27.0-34.0); MEAN CORPUSCULAR HGB CONC 32.8 % (32.0-36.0); MONO % 7.1 % (0.0-8.0); PLATELET COUNT 209 TH/MM3 (150-450); RED BLOOD COUNT 4.47 MIL/MM3 (4.50-5.90); RED CELL DISTRIBUTION WIDTH 14.7 % (11.6-17.2); WHITE BLOOD COUNT 11.6 TH/MM3 (4.0-11.0)
[2016-09-26 05:46] LABS: BICARBONATE 22.6 MEQ/L (21.0-32.0)
[2016-09-26] MEDS ORDERED: VANCOMYCIN INJ 1,000 MG in SODIUM CHLOR 0.9% 250 ML INJ 250 ML IV SCH (06:00)
[2016-09-26] MEDS: INSULIN ASPART SUPPLEMENTAL SCALE SQ SCH ×4 (06:20→21:37)
[2016-09-26] MEDS: SODIUM CHLORIDE 0.9% FLUSH 10 ML FLUSH IV FLUSH SCH ×2 (09:00→21:00)
[2016-09-26] MEDS: PREGABALIN 100 MG CAP PO SCH ×2 (09:25→21:46)
[2016-09-26] MEDS: LISINOPRIL 5 MG TAB PO SCH (09:25)
[2016-09-26] MEDS: BUDESONIDE-FORMOTEROL 80/4.5 MCG INHALER INH SCH ×2 (09:26→21:42)
--- NOTE | 2016-09-26 10:57 | HHI.FPPN ---
Subjective Remarks Patient is doing slightly better this morning. He believes the scrotal swelling has increased slightly. Still slightly tender. Denies fever, chills, nausea, vomiting. (Prince Zhu MD R2) Objective Vitals Vital Signs Date Time Temp Pulse Resp B/P Pulse Ox O2 Delivery O2 Flow Rate FiO2 09/26/16 07:28 97.8 81 20 142/72 96 09/26/16 07:20 98 Nasal Cannula 2.00 09/26/16 04:12 98.3 75 20 130/70 95 09/25/16 23:59 98.1 80 18 120/59 90 09/25/16 20:41 97.5 77 18 137/75 93 09/25/16 18:11 80 16 127/71 97 Room Air 09/25/16 15:35 81 15 119/65 95 Room Air 09/25/16 12:45 95 Room Air 09/25/16 12:35 98.1 94 16 179/88 95 Room Air I/O 09/25/16 09/25/16 09/25/16 09/26/16 09/26/16 09/26/16 07:00 15:00 23:00 07:00 15:00 23:00 Intake Total 360 ml 1560 ml Output Total 650 ml 600 ml Balance -290 ml 960 ml Intake Oral 360 ml 120 ml IV Total 1440 ml Output Urine Total 650 ml 600 ml (Prince Zhu MD R2) Result Diagram: 09/26/16 0350 09/26/16 0350 Objective Remarks GENERAL: This is a well-nourished, well-developed patient, in no apparent distress. SKIN: Warm and dry. HEAD: Atraumatic. Normocephalic. EYES: Pupils equal round and reactive. Extraocular motions intact. No scleral icterus. No injection or drainage. ENT: Nose without discharge. Throat without erythema, tonsillar hypertrophy or exudate. Uvula midline. Airway patent. NECK: Trachea midline. No JVD or lymphadenopathy. CARDIOVASCULAR: Regular rate and rhythm without murmurs, gallops, or rubs. RESPIRATORY: Decreased breath sounds. Inspiratory and expiratory wheezing bilaterally. GASTROINTESTINAL: Abdomen soft, non-tender, nondistended. No hepato-splenomegaly , or palpable masses. No guarding. MUSCULOSKELETAL: Extremities without clubbing, cyanosis, or edema. No joint tenderness, effusion, or edema noted. No calf tenderness. : Penile swelling and testicular swelling present. Erythema throughout, extending into groin area bilaterally. Warm to touch and tender to touch diffusely. Catheter in place. NEUROLOGICAL: Awake and alert. Motor and sensory grossly within normal limits. Normal speech. (Prince Zhu MD R2) A/P Assessment and Plan 51-year-old male with history of diabetes and COPD presents with penile and testicle swelling after I&D. Failed outpatient antibiotics. We will admit for IV antibiotics and consultation to urologist. Discharge Planning Pending clinical improvement (Prince Zhu MD R2) Attending Attestation Patient seen and examined. Case reviewed and discussed with the resident team. Agree with plan of care as discussed with me and documented in the resident note. Mr Blair was alert and oriented x 3. I saw him when he had just moved up to the 7th floor. He initially told his nurse that "he might jump out the window" and has a history of depression. He reported that he stopped taking his abx and questionably an antidepressant at home. "I felt like I just got worse with the abx pill but the liquid (iv) works better." He wasn't sure if he was supposed to take his bactrim daily or twice a day and his significant other Mrs Lyles who he has "been together with for 48 years" fell and is in rehab now so he had no support or help at home. Consulted Psychiatry for his history of depression and some current discussion that he is very depressed right now and though not exactly suicidal, was making some statements that were suggestive. (Evette Pierre MD) Problem List: (1) Cellulitis of scrotum Status: Acute Plan: Patient presents with swelling and redness of penis and scrotal area. I& D performed on September 02 due to scrotal abscess. The pain and swelling has been worsening. Some dysuria, but no obstructive urinary signs. Concern for Aaron' s gangrene, but ultrasound and CT negative. Mild leukocytosis on admission and normal CRP. Was on Bactrim outpatient. Scrotal US: unremarkable, benign calcification on left testicle Pelvis CT: Air in bladder, scrotal wall thickening Given dose of Vanc/Zosyn in ED -Continue Vancomycin q12H, pharmacy consult -Continue Zosyn 3.375g q6h -Urology consult-appreciate recs -Pt known to Dr. Hrerera -Blood culture pending (2) Diabetes Status: Acute Plan: History of chronic diabetes on insulin. Patient is on Levemir 24 units twice a day and Humalog sliding scale 3 times a day. Glucose 298 on admission. States he has stopped taking his insulin this week. -Continue Levemir 14 units at night. -Sliding scale insulin -Monitor blood glucose levels -May need to adjust long-acting insulin pending glucose levels (3) UTI (urinary tract infection) Status: Acute Plan: Urine culture pending. Antibiotics as above, vancomycin and Zosyn (4) COPD (chronic obstructive pulmonary disease) Status: Chronic Plan: History of chronic COPD, on nebulizer, Symbicort, and 2 L of oxygen at home. -Continue Symbicort -DuoNeb's every 4 hours and albuterol when necessary (5) Hypertension Status: Chronic Plan: History of hypertension. -Continue home lisinopril -Hydralazine PRN (6) Tobacco abuse Status: Chronic Plan: Pt smoking 1 PPD, not interested in quitting at this time -Counseled on risks of smoking and benefits of quitting (7) FEN Status: Acute Plan: Fluids: NS @ 125mls/hr Electrolytes: wnl, continue to monitor Nutrition: Diabetic diet DVT ppx: Lovenox (Prince Zhu MD R2) Problem Qualifiers (1) Diabetes: Qualified Code: E11.59 - Type 2 diabetes mellitus with other circulatory complication, with long-term current use of insulin (2) UTI (urinary tract infection): Qualified Code: N30.00 - Acute cystitis without hematuria (3) COPD (chronic obstructive pulmonary disease): Qualified Code: J44.9 - Chronic obstructive pulmonary disease, unspecified COPD type (4) Hypertension: Qualified Code: I10 - Essential hypertension Prince Zhu MD R2 Sep 26, 2016 10:57 Evette Pierre MD Sep 26, 2016 17:04
--- NOTE | 2016-09-26 13:20 | MB ---
cc: OLENA ARGUETA DATE OF CONSULTATION: 09/26/2016 REASON FOR CONSULTATION: HISTORY OF PRESENT ILLNESS: Mr. Blair is a pleasant 61-year-old male with a longstanding history of a prior urethrocutaneous fistula. He has also had multiple scrotal abscesses and required incision and drainage, one was done at [facility] and recently one was done by myself here in the operating room at [place] last month. He initially underwent an incision and drainage of a perirectal abscess by Dr. Davidson in the past and then developed a urethrocutaneous fistula. Attempt was made at closure of this by Dr. Pulido, but this was unsuccessful at the time. He underwent an MRI a few years ago still demonstrating presence of the fistula. He did not want to undergo repeat reconstruction with buccal mucosa at the time and opted to undergo suprapubic tube drainage. This was done for approximately six months and then after re-studying it, it appeared that the fistula had healed on its own. He denies any leakage from the area in the perineum where the fistula was present in the past, but does have splaying of the stream and has been getting recurrent urinary tract infections with scrotal cellulitis. He was recently seen in the office and treated with Bactrim and Diflucan. He denies any fevers or chills but he does note that his sugars have been high and they are not well-controlled as he appears to be noncompliant with his diabetes medication. PAST MEDICAL HISTORY: His medical history includes: 1. Diabetes. 2. Hypertension. 3. COPD. 4. Scrotal abscess. 5. History of urethrocutaneous fistula. PAST SURGICAL HISTORY: 1. Perianal abscess treated in 2007. 2. Reconstruction of urethrocutaneous fistula in the past by Dr. Pulido. 3. Transurethral resection of prostate. 4. Lower extremity stents due to peripheral vascular disease. 5. Incision and drainage of the scrotum a few years ago at [facility] and then recently on 09/02/16 by myself. MEDICATIONS: For medications, please refer to the chart. ALLERGIES: 1. GABAPENTIN. 2. LANTUS. 3. ASPIRIN. FAMILY HISTORY: Denies any family history of prostate cancer. SOCIAL HISTORY: Denies any drug use, prior smoker, occasional alcohol usage. REVIEW OF SYSTEMS: Presently he denies any chest pain or shortness of breath or abdominal pain. Denies any voiding complaints except for mild dysuria at times and does note incomplete bladder emptying. Denies gait disturbances, bleeding disorders, head or cold intolerance, denies any depression. The remaining review of systems was reviewed and were negative. PHYSICAL EXAMINATION: VITAL SIGNS: Temperature is 98.3, heart rate 77, respiratory rate 16, 135/63, pulse oximetry is 95%. GENERAL: He is a well-developed, well-nourished 61-year-old male in no acute distress. HEAD, EYES, EARS, NOSE, THROAT: Normocephalic and atraumatic. Pupils equal, round and reactive to light. Extraocular muscles intact. NECK: The neck is supple. HEART: Regular rate and rhythm. LUNGS: Clear. ABDOMEN: The abdomen is soft, nontender and nondistended. : Scrotum swollen with erythema and somewhat tender to touch. Penile edema is also noted. Broderick catheter is in place draining clear urine. EXTREMITIES: No evidence of cyanosis, clubbing or edema. LABORATORY STUDIES: White count is 11.6, hemoglobin 12.2, hematocrit 37.2, platelet count of 209,000. Sodium 138, potassium 4.0, chloride 107, CO2 22.6, BUN 27, creatinine 0.86, glucose 188. PT is 10.2, INR is 0.9, PTT is 23.9. Urinalysis shows clumps of many white cells with 44 white cells and 5 red cells. Urine culture demonstrates gram-negative rods. Blood cultures showed no growth at one day. IMAGING STUDIES: Imaging studies show a pelvic CT which showed some air in the bladder, scrotal wall thickening is noted. A scrotal ultrasound also showed unremarkable study except for benign calcification involving the left testicle. ASSESSMENT: This is a 61-year-old male with history of a urethrocutaneous fistula in the past with scrotal cellulitis at present without evidence of Aaron's gangrene. RECOMMENDATIONS: 1. Continue with IV antibiotics. 2. Continue with Broderick catheter drainage for now. 3. We will check urine culture results and sensitivities. 4. He may need further imaging studies in the future and will consider pelvic MRI to evaluate the presence or absence of the urethrocutaneous fistula as well as cystoscopy with a retrograde urethrogram. Will follow with you. Thank you for the consult for allowing me to participate in the care of this patient. Olena BURGESS/SUKI /12:57 PM /1:10 PM
[2016-09-26] MEDS: ENOXAPARIN SODIUM 40 MG/0.4 ML SYRINGE SQ SCH (17:07)
[2016-09-26] MEDS: TAMSULOSIN HCL 0.4 MG CAP PO SCH (21:36)
[2016-09-26] MEDS: INSULIN DETEMIR 100 UNITS/ML VIAL SQ SCH (21:38)
[2016-09-27] VITALS (10 sets, daily range): BP systolic 99–156; BP diastolic 54–77; PULSE 53–105; RESP 14–20; TEMP 96.6–98.6; O2SAT 93–99
[2016-09-27] MEDS: RESP: ALBUTEROL 2.5 MG/IPRATROPIUM 0.5 MG NEB (SCH) INH ×6 (00:04→19:49)
[2016-09-27] MEDS: TEMAZEPAM 15 MG CAP PO PRN (00:41)
[2016-09-27] MEDS: SODIUM CHLOR 0.9% 1000 ML INJ 1,000 ML IV SCH ×3 (01:00→17:40)
[2016-09-27] MEDS: ACETAMINOPHEN/HYDROcodone 325 MG/7.5 MG TAB PO PRN ×3 (01:51→17:45)
[2016-09-27] MEDS: PIPERACIL-TAZO 3.375 GM PREMIX 50 ML IV SCH ×4 (03:53→23:56)
[2016-09-27] MEDS: INSULIN ASPART SUPPLEMENTAL SCALE SQ SCH ×3 (05:36→17:45)
--- NOTE | 2016-09-27 08:15 | HHI.PR ---
Subjective Patient symptoms today Pt seen and examined. Scrotum painful. Still with erythema. Objective Vital Signs Vital Signs Date Time Temp Pulse Resp B/P Pulse Ox O2 Delivery O2 Flow Rate FiO2 09/27/16 04:00 97.2 89 19 99/63 99 09/27/16 03:44 94 Nasal Cannula 3.00 09/27/16 00:07 96 21 09/27/16 00:00 96.6 86 19 156/77 94 09/26/16 20:00 97.3 94 18 163/70 95 09/26/16 16:40 97.3 91 20 142/73 97 09/26/16 15:27 98.6 91 16 134/63 97 09/26/16 12:20 20 09/26/16 11:32 98.3 77 16 135/63 95 Result Diagram: 09/26/16 03509/26/16 035 Objective Remarks Scrotum: erythema/painful to touch Scrotum elevated with towel placed underneath Escam[place] with some sediment in urine Medications and IVs Current Medications Medications (Trade) Dose Ordered Sig/Lela Route Start Time Stop Time Status Last Admin (NS Flush) 2 ml BID IV FLUSH 09/25/16 21:00 Sodium Chloride 2 ml 2 ml UNSCH PRN IV FLUSH 09/25/16 17:00 Sodium Chloride 1,000 ml @ 125 mls/hr Q8H IV 09/25/16 17:00 09/26/16 21:36 (Vancomycin Consult Pharmacy) 0 ml @ 0 mls/hr UNSCH OTHER 09/25/16 17:00 ([place] 5-325 Mg) 1 tab Q4H PRN PO 09/25/16 17:00 ([place] 7.5-325 Mg) 1 tab Q4H PRN PO 09/25/16 17:00 09/27/16 05:32 Enoxaparin Sodium 40 mg 40 mg Q24H SQ 09/25/16 18:00 09/26/16 17:07 (Zosyn 3.375 Gm Premix) 50 ml @ 100 mls/hr Q6H IV 09/25/16 22:00 09/27/16 03:53 (Morphine Inj) 4 mg Q3H PRN IV 09/25/16 17:15 (Narcan Inj) 0.4 mg UNSCH PRN IV 09/25/16 17:15 (D50w (Vial) Inj) 50 ml UNSCH PRN IV 09/25/16 17:15 (Glucagon Inj) 1 mg UNSCH PRN OTHER 09/25/16 17:15 (Symbicort 80-4.5 Mcg Inh) 1 puff Q12HR INH 09/25/16 21:00 09/26/16 21:42 (Lyrica) 200 mg BID PO 09/25/16 21:00 09/26/16 21:46 (Flomax) 0.4 mg HS PO 09/25/16 21:00 09/26/16 21:36 (Prinivil) 2.5 mg DAILY PO 09/26/16 09:00 09/26/16 09:25 Hydralazine HCl 10 mg 10 mg Q6H PRN IV 09/25/16 21:00 (Vancomycin Inj/ NS 500 ml Inj) 515 ml @ 257.5 mls/ hr Q18H IV 09/26/16 05:00 09/26/16 22:30 Miscellaneous Information SPECIFIC LAB TO BE DRAWN:VANCOMYCIN TROUGH DATE TO... ONCE ONCE .XX 09/27/16 16:45 09/27/16 16:46 (Levemir Inj) 14 units HS SQ 09/26/16 21:00 09/26/16 21:38 (Restoril) 15 mg HS PRN PO 09/27/16 00:30 09/27/16 00:41 Assessment and Plan Assessment and Plan 61 y.o male with scrotal cellulitis with h/o urethral cutaneous fistula] Continue IV abx Check UCx results and sensitivities Maintain escamilla catheter MRI later this week to evaluate for presence of fistula Juan Ramon Herrera DO Sep 27, 2016 08:15
[2016-09-27] MEDS: LISINOPRIL 5 MG TAB PO SCH (08:26)
[2016-09-27] MEDS: PREGABALIN 100 MG CAP PO SCH ×2 (08:26→23:56)
[2016-09-27] MEDS: MORPHINE SULFATE 4 MG/ML INJ IV PRN (08:27)
[2016-09-27] MEDS: BUDESONIDE-FORMOTEROL 80/4.5 MCG INHALER INH SCH ×2 (08:36→23:56)
[2016-09-27] MEDS: SODIUM CHLORIDE 0.9% FLUSH 10 ML FLUSH IV FLUSH SCH ×2 (09:00→21:00)
[2016-09-27 10:22] LABS: AUTOMATED NEUTROPHIL # 7.2 TH/MM3 (1.8-7.7); BASOPHIL % 0.3 % (0.0-2.0); EOSINOPHIL # 0.1 TH/MM3 (0-0.4); EOSINOPHIL % 1.4 % (0.0-4.0); HEMATOCRIT 37.8 % (39.0-51.0); HEMO FLAGS DIFF FINAL; LYMPH % 18.4 % (9.0-44.0); LYMPHOCYTE # 1.9 TH/MM3 (1.0-4.8); MEAN CORPUSCULAR HEMOGLOBIN 27.7 PG (27.0-34.0); MONO % 9.2 % (0.0-8.0); NEUT % 70.7 % (16.0-70.0); PLATELET COUNT 186 TH/MM3 (150-450); RED CELL DISTRIBUTION WIDTH 14.8 % (11.6-17.2); WHITE BLOOD COUNT 10.2 TH/MM3 (4.0-11.0)
[2016-09-27 10:58] LABS: ALKALINE PHOSPHATASE 64 U/L (45-117); ALT (GPT) 12 U/L (12-78); ANION GAP 7 MEQ/L (5-15); AST (GOT) 9 U/L (15-37); BICARBONATE 24.9 MEQ/L (21.0-32.0); BLOOD UREA NITROGEN 13 MG/DL (7-18); CHLORIDE 109 MEQ/L (98-107); GLOMERULAR FILTRATION RATE 98 ML/MIN (>89); POTASSIUM 3.7 MEQ/L (3.5-5.1); SODIUM (NA) 141 MEQ/L (136-145); TOTAL BILIRUBIN ADULT 0.4 MG/DL (0.2-1.0)
--- NOTE | 2016-09-27 13:51 | EKG ---
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
--- NOTE | 2016-09-27 14:13 | PD.PSY.CON ---
Provisional Diagnosis Admission Date Sep 26, 2016 at 10:02 [place] I. Adjustment disorder with depressed mood [place] II. Deferred [place] III. DM, HTN, COPD, scrotal abscess History of Present Illness Service Psychiatry Consult Requested By Primary Care Physician Edenilson Hoang MD HPI The patient is a 61-year-old man, domiciled in [facility] with his , unemployed, disabled, with psychiatric history of depression, anxiety, no psychiatric hospitalizations, no previous suicidal attempts, medical history of diabetes, hypertension, COPD, who presents with swelling and redness of penis and scrotal area. I&D performed on September 02 due to scrotal abscess. The pain and swelling has been worsening. Some dysuria, but no obstructive urinary signs. Concern for Aaron's gangrene, but ultrasound and CT negative. Consulted to psychiatry due to depressive symptoms and suicidal statements. On psychiatric evaluation today patient is calm, cooperative, he reports feeling much better today. 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 Patient also reports sleeping poorly at night and feeling tired during the day. He denies hopelessness, he denies helplessness, he denies worthlessness, he denies anhedonia, he denies suicidal and homicidal ideation, he denies visual and auditory hallucinations. He has expressed suicidal thoughts in 2 occasions during the hospitalization due to anger and frustration "but I want to ". Patient is oriented 3, without attention deficit, without fluctuation of consciousness present. Patient denies the use of drugs and alcohol. Review of Systems Constitutional: DENIES: Diaphoretic episodes, Fatigue, Fever, Weight gain, Weight loss, Chills, Dizziness, Change in appetite, Night Sweats Endocrine: DENIES: Heat/cold intolerance, Polydipsia, Polyuria, Polyphagia Eyes: DENIES: Blurred vision, Diplopia, Eye inflammation, Eye pain, Vision loss , Photosensitivity, Double Vision Ears, nose, mouth, throat: DENIES: Tinnitus, Hearing loss, Vertigo, Nasal discharge, Oral lesions, Throat pain, Hoarseness, Ear Pain, Running Nose, Epistaxis, Sinus Pain, Toothache, Odynophagia Respiratory: DENIES: Apneas, Cough, Snoring, Wheezing, Hemoptysis, Sputum production, Shortness of breath Cardiovascular: DENIES: Chest pain, Palpitations, Syncope, Dyspnea on Exertion , PND, Lower Extremity Edema, Orthopnea, Claudication Gastrointestinal: DENIES: Abdominal pain, Black stools, Bloody stools, Constipation, Diarrhea, Nausea, Vomiting, Difficulty Swallowing, Anorexia Genitourinary: COMPLAINS OF: Dysuria, Testicular Pain, Testicular Swelling Musculoskeletal: DENIES: Joint pain, Muscle aches, Stiffness, Joint Swelling, Back pain, Neck pain Integumentary: DENIES: Abnormal pigmentation, Nail changes, Pruritus, Rash Hematologic/lymphatic: DENIES: Bruising, Lymphadenopathy Immunologic/allergic: DENIES: Eczema, Urticaria Neurologic: DENIES: Abnormal gait, Headache, Localized weakness, Paresthesias, Seizures, Speech Problems, Tremor, Poor Balance Psychiatric: COMPLAINS OF: Depression, DENIES: Anxiety, Confusion, Mood changes, Hallucinations, Agitation, Suicidal Ideation, Homicidal Ideation, Delusions Past Family Social History Coded Allergies: Gabapentin (Verified Adverse Reaction, Severe, Chest gets tight and he feels lightheaded., 09/25/16) Lantus (Verified Adverse Reaction, Severe, Patient claims severe burning with even low doses. , 09/25/16) Aspirin (Verified Adverse Reaction, Intermediate, UPSET STOMACH Can take coated , 09/25/16) PATIENT DENIES ALLERGY, SAYS IF HE TAKES UNCOATED ASA HE GETS UPSET STOMACH. 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) Active Scripts Nystatin Topical 100,000 unit/gm Oint1 Applic TOPICAL Q12HR #15 GM Ref 0 Prov:Juan Ramon Herrera DO 09/20/16 Sulfamethoxazole-Trimethoprim 800-160 Mg Tab1 Tab PO BID #14 TAB Ref 0 Prov:Juan Ramon Herrera DO 09/20/16 Tamsulosin (Flomax)0.4 Mg Cap0.4 Mg PO HS #30 CAP Ref 0 Prov:Juan Ramon Herrera DO 09/06/16 Pregabalin (Lyrica)200 Mg Gcn453 Mg PO BID #60 CAP Ref 2 Prov:Edenilson Hoang MD R1 08/17/16 Budesonide-Formoterol Inh (Symbicort Inh)80-4.5 Mcg/Act Aero1 Puff INH Q12HR # 1 INHALER Ref 1 Prov:Edenilson Hoang MD R1 06/28/16 Insulin Lispro (Human) Inj (Humalog Inj)1,000 Unit/10 Ml Vial2-7 Units SQ tidachs #1 VIAL Ref 0 Prov:Edenilson Hoang MD R1 04/28/16 Insulin Detemir Inj (Levemir Inj)1,000 unit/ 10 ML Vial24 Units SQ BID #1 VIAL Ref 0 Do not mix with any other Insulin. Prov:Edenilson Hoang MD R1 04/09/16 Lisinopril 2.5 Mg Tab2.5 Mg PO DAILY #30 TAB Ref 0 Prov:Edenilson Hoang MD R1 04/09/16 Reported Medications Hydrocodone-Acetaminophen (Lortab)5-325 Mg Tab1 Tab PO Q4H PRN (PAIN) Ref 0 09/20/16 Ipratropium-Albuterol Neb (Duoneb)0.5-2.5 Mg/3 Ml Neb1 Nebule INH Q8HR NEB #90 NEBULE Ref 0 01/22/16 Discontinued Scripts Prednisone 20 Mg Tab20 Mg PO DAILY #5 TAB Ref 0 Prov:Edenilson Hoang MD R1 06/28/16 Ciprofloxacin (Cipro)500 Mg Qaz213 Mg PO BID #14 TAB Ref 0 Prov:Juan Ramon Herrera DO 09/01/16 Current Medications Medications (Trade) Dose Ordered Sig/Lela Route Start Time Stop Time Status Last Admin (NS Flush) 2 ml BID IV FLUSH 09/25/16 21:00 Sodium Chloride 2 ml 2 ml UNSCH PRN IV FLUSH 09/25/16 17:00 Sodium Chloride 1,000 ml @ 125 mls/hr Q8H IV 09/25/16 17:00 09/27/16 09:00 (Vancomycin Consult Pharmacy) 0 ml @ 0 mls/hr UNSCH OTHER 09/25/16 17:00 ([place] 5-325 Mg) 1 tab Q4H PRN PO 09/25/16 17:00 ([place] 7.5-325 Mg) 1 tab Q4H PRN PO 09/25/16 17:00 09/27/16 05:32 Enoxaparin Sodium 40 mg 40 mg Q24H SQ 09/25/16 18:00 09/26/16 17:07 (Zosyn 3.375 Gm Premix) 50 ml @ 100 mls/hr Q6H IV 09/25/16 22:00 09/27/16 08:27 (Morphine Inj) 4 mg Q3H PRN IV 09/25/16 17:15 09/27/16 08:27 (Narcan Inj) 0.4 mg UNSCH PRN IV 09/25/16 17:15 (D50w (Vial) Inj) 50 ml UNSCH PRN IV 09/25/16 17:15 (Glucagon Inj) 1 mg UNSCH PRN OTHER 09/25/16 17:15 (Symbicort 80-4.5 Mcg Inh) 1 puff Q12HR INH 09/25/16 21:00 09/27/16 08:36 (Lyrica) 200 mg BID PO 09/25/16 21:00 09/27/16 08:26 (Flomax) 0.4 mg HS PO 09/25/16 21:00 09/26/16 21:36 (Prinivil) 2.5 mg DAILY PO 09/26/16 09:00 09/27/16 08:26 Hydralazine HCl 10 mg 10 mg Q6H PRN IV 09/25/16 21:00 (Vancomycin Inj/ NS 500 ml Inj) 515 ml @ 257.5 mls/ hr Q18H IV 09/26/16 05:00 09/26/16 22:30 Miscellaneous Information SPECIFIC LAB TO BE DRAWN:VANCOMYCIN TROUGH DATE TO... ONCE ONCE .XX 09/27/16 16:45 09/27/16 16:46 (Levemir Inj) 14 units HS SQ 09/26/16 21:00 09/26/16 21:38 (Restoril) 15 mg HS PRN PO 09/27/16 00:30 09/27/16 00:41 Family History Patient denies family psychiatric history Social History Patient was born and raised in [facility], he lives in [place] since 1990, he lives in [place] with his , has no kids, unemployed, on disability, highest level of education is eighth grade Physical Exam A physical exam no tremors, no EPS, no psychomotor agitation or retardation, no stiffness, no gait disturbance, Vital Signs Vital Signs Date Time Temp Pulse Resp B/P Pulse Ox O2 Delivery O2 Flow Rate FiO2 09/27/16 12:00 98.0 105 20 108/68 93 09/27/16 08:15 Nasal Cannula 3.00 09/27/16 00:07 21 I/O 09/26/16 09/26/16 09/27/16 08:00 16:00 00:00 Intake Total 1560 ml 900 ml 240 ml Output Total 600 ml 850 ml 400 ml Balance 960 ml 50 ml -160 ml Mental Status Examination Appearance man, age appearing, [facility], calm and cooperative Speech: Unremarkable Orientation: x3 Memory: Unremarkable Thought Process: Logical Thought Content: Unremarkable Language Fluent and spontaneous Fund of Knowledge 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 Logical, coherent and relevant. There is no evidence of wilfredo psychosis or rachael. He denies visual and auditory hallucinations. He does report acute depressive symptoms in the context of frustration and anger due to his hospitalization, he reports problem sleeping, with concentration, frequent sadness, but denies suicidal and homicidal ideation at this moment. He does not meet criteria for psychiatric admission at this moment. Extensive support, psychoeducation and motivation provided. We 'll start trazodone 100 mg at bedtime to help with sleep and depression. We'll continue follow-up. ICD Code: F43.21 Assessment & Plan Estimated LOS: Chuy Mota MD Sep 27, 2016 14:12
--- NOTE | 2016-09-27 14:22 | HHI.FPPN ---
Subjective Remarks Patient seen and examined this morning. Afebrile vital signs stable. He reports that his scrotal pain is tolerable. He is uncertain of the swelling has improved. No necrosis seen. Per urology recommendations patient will need an MRI for further management to be determined. He understands this plan of care and agrees with it. Endorses: Mild scrotal pain, scrotal swelling, scrotal erythema Denies: Fever, chills, nausea, vomiting, shortness of breath, chest pain, headache, abdominal pain, calf pain (Fco Hood MD R2) Objective Vitals Vital Signs Date Time Temp Pulse Resp B/P Pulse Ox O2 Delivery O2 Flow Rate FiO2 09/27/16 12:00 98.0 105 20 108/68 93 09/27/16 08:15 97 Nasal Cannula 3.00 09/27/16 08:00 97.9 53 18 139/74 97 09/27/16 04:00 97.2 89 19 99/63 99 09/27/16 03:44 94 Nasal Cannula 3.00 09/27/16 00:07 96 21 09/27/16 00:00 96.6 86 19 156/77 94 09/26/16 20:00 97.3 94 18 163/70 95 09/26/16 16:40 97.3 91 20 142/73 97 09/26/16 15:27 98.6 91 16 134/63 97 I/O 09/26/16 09/26/16 09/26/16 09/27/16 09/27/16 09/27/16 07:00 15:00 23:00 07:00 15:00 23:00 Intake Total 1560 ml 1140 ml 120 ml Output Total 600 ml 1250 ml 400 ml Balance 960 ml -110 ml -280 ml Intake Oral 120 ml 1140 ml 120 ml IV Total 1440 ml Output Urine Total 600 ml 1250 ml 400 ml # Bowel Movements 1 1 (Fco Hood MD R2) Result Diagram: 09/27/1691809/27/16918 Imaging Last Impressions Scrotum Ultrasound 09/25/16 0000 Signed Impressions: Service Date/Time: Sunday, September 25, 2016 13:57 - CONCLUSION: Unremarkable study except for benign calcification involving the left testicle could be in the testicle itself or possibly outside of it. Jolanta Smith MD Pelvis CT 09/25/16 0000 Signed Impressions: Service Date/Time: Sunday, September 25, 2016 15:07 - CONCLUSION: 1. Air in the bladder could be acu genic or infectious. Urinalysis recommended. 2. Scrotal wall thickening. 3. Low lying right kidney. Flip Sandy MD Objective Remarks GENERAL: Well-nourished, well-developed patient. No acute distress. SKIN: Warm and dry. No rash. EYES: No scleral icterus. No injection or drainage. PERRLA. EOMI. HENT: Normocephalic. Atraumatic. MMM. NECK: No visible JVD or lymphadenopathy. CARDIOVASCULAR: Regular rate and rhythm RESPIRATORY: Clear to auscultation bilaterally GASTROINTESTINAL: Abdomen nondistended. : Scrotal swelling, scrotal erythema, tenderness to palpation scrotum, no necrotic tissue MUSCULOSKELETAL: Strength grossly WNL. BACK: Without obvious deformity. NEURO/PSYCH: Afocal. Awake, alert, and oriented x3. Medications and IVs Current Medications Medications (Trade) Dose Ordered Sig/Lela Route Start Time Stop Time Status Last Admin (NS Flush) 2 ml BID IV FLUSH 09/25/16 21:00 Sodium Chloride 2 ml 2 ml UNSCH PRN IV FLUSH 09/25/16 17:00 Sodium Chloride 1,000 ml @ 125 mls/hr Q8H IV 09/25/16 17:00 09/27/16 09:00 (Vancomycin Consult Pharmacy) 0 ml @ 0 mls/hr UNSCH OTHER 09/25/16 17:00 ([place] 5-325 Mg) 1 tab Q4H PRN PO 09/25/16 17:00 ([place] 7.5-325 Mg) 1 tab Q4H PRN PO 09/25/16 17:00 09/27/16 05:32 Enoxaparin Sodium 40 mg 40 mg Q24H SQ 09/25/16 18:00 09/26/16 17:07 (Zosyn 3.375 Gm Premix) 50 ml @ 100 mls/hr Q6H IV 09/25/16 22:00 09/27/16 08:27 (Morphine Inj) 4 mg Q3H PRN IV 09/25/16 17:15 09/27/16 08:27 (Narcan Inj) 0.4 mg UNSCH PRN IV 09/25/16 17:15 (D50w (Vial) Inj) 50 ml UNSCH PRN IV 09/25/16 17:15 (Glucagon Inj) 1 mg UNSCH PRN OTHER 09/25/16 17:15 (Symbicort 80-4.5 Mcg Inh) 1 puff Q12HR INH 09/25/16 21:00 09/27/16 08:36 (Lyrica) 200 mg BID PO 09/25/16 21:00 09/27/16 08:26 (Flomax) 0.4 mg HS PO 09/25/16 21:00 09/26/16 21:36 (Prinivil) 2.5 mg DAILY PO 09/26/16 09:00 09/27/16 08:26 Hydralazine HCl 10 mg 10 mg Q6H PRN IV 09/25/16 21:00 (Vancomycin Inj/ NS 500 ml Inj) 515 ml @ 257.5 mls/ hr Q18H IV 09/26/16 05:00 09/26/16 22:30 Miscellaneous Information SPECIFIC LAB TO BE DRAWN:VANCOMYCIN TROUGH DATE TO... ONCE ONCE .XX 09/27/16 16:45 09/27/16 16:46 (Levemir Inj) 14 units HS SQ 09/26/16 21:00 09/26/16 21:38 (Restoril) 15 mg HS PRN PO 09/27/16 00:30 09/27/16 00:41 (Fco Hood MD R2) A/P Assessment and Plan 51-year-old male with history of diabetes and COPD presents with penile and testicle swelling after I&D. Failed outpatient antibiotics. Admitted for IV antibiotics and consultation to urologist. Discharge Planning Pending clinical improvement and urology recommendations SDW: Dr. Montalvo (Fco Hood MD R2) Attending Attestation Patients case was dicussed in detail with resident medical team,examination performed, EMR reviewed, agree with Admission, Assessment and Plan, See Orders. (Jim Montalvo MD) Problem List: (1) Cellulitis of scrotum Status: Acute Plan: Patient presents with swelling and redness of penis and scrotal area. I& D performed on September 02 due to scrotal abscess. The pain and swelling has been worsening. Some dysuria, but no obstructive urinary signs. Concern for Aaron' s gangrene, but ultrasound and CT negative. Mild leukocytosis on admission and normal CRP. Was on Bactrim outpatient. Scrotal US: unremarkable, benign calcification on left testicle Pelvis CT: Air in bladder, scrotal wall thickening Given dose of Vanc/Zosyn in ED -Continue Vancomycin q12H, pharmacy consult -Continue Zosyn 3.375g q6h -Urology consult-appreciate recs -Pt known to Dr. Herrera -Blood culture pending -MRI pending (2) Diabetes Status: Acute Plan: History of chronic diabetes on insulin. Patient is on Levemir 24 units twice a day and Humalog sliding scale 3 times a day. Most recent blood glucoses have been 293, 260, 283 -Continue Levemir 14 units at night. -Sliding scale insulin -Monitor blood glucose levels -May need to adjust long-acting insulin pending glucose levels (3) UTI (urinary tract infection) Status: Acute Plan: Urine culture Escherichia coli Antibiotics as above, vancomycin and Zosyn IV fluids NS at 125 MLS per hour (4) COPD (chronic obstructive pulmonary disease) Status: Chronic Plan: History of chronic COPD, on nebulizer, Symbicort, and 2 L of oxygen at home. -Continue Symbicort -DuoNeb's every 4 hours and albuterol when necessary (5) Hypertension Status: Chronic Plan: History of hypertension. -Continue home lisinopril -Hydralazine PRN (6) Tobacco abuse Status: Chronic Plan: Pt smoking 1 PPD, not interested in quitting at this time -Counseled on risks of smoking and benefits of quitting (7) FEN Status: Acute Plan: Fluids: NS @ 125mls/hr we'll continue IV fluids due to UTI Electrolytes: wnl, continue to monitor Nutrition: Diabetic diet DVT ppx: Lovenox (Fco Hood MD R2) Problem Qualifiers (1) Diabetes: Qualified Code: E11.59 - Type 2 diabetes mellitus with other circulatory complication, with long-term current use of insulin (2) UTI (urinary tract infection): Qualified Code: N30.00 - Acute cystitis without hematuria (3) COPD (chronic obstructive pulmonary disease): Qualified Code: J44.9 - Chronic obstructive pulmonary disease, unspecified COPD type (4) Hypertension: Qualified Code: I10 - Essential hypertension Fco Hood MD R2 Sep 27, 2016 14:22 Jim Montalvo MD Sep 27, 2016 18:40
[2016-09-27] MEDS ORDERED: GADODIAMIDE PF 287 MG/ML 20 ML VIAL (for RAD MRI) IV ONE (15:06)
--- NOTE | 2016-09-27 16:01 | RADRPT ---
EXAM DATE/TIME: 09/27/2016 14:38 [facility] COMPARISON: No previous studies available for comparison. INDICATIONS : Scrotal pain and redness with history of cutaneous fistula. Started as cyst in right testicle two mo nths ago. CONTRAST: 17 cc Omniscan (gadodiamide) IV MEDICAL HISTORY : Hypertension. Diabetes mellitus type 2. Stroke SURGICAL HISTORY : Appendectomy. TURP, ORIF elbow, L leg stent ENCOUNTER: Subsequent ACUITY: 1 month PAIN SCORE: 5/10 LOCATION: Testicles. TECHNIQUE: Multiplanar, multisequence magnetic resonance imaging of the pelvis was performed. FINDINGS: There is a rim-enhancing subcutaneous fluid collection within the right scrotum which appears to comm unicate with the skin and measures 1.9 x 2.3 x 1.0 cm consistent with probable subcutaneous abscess. Diffuse scrotal swelling noted. Broderick catheter is identified with its balloon in the urinary bladde r. No significant inguinal lymphadenopathy is noted. CONCLUSION: 1. 1.9 x 2.3 x 1.0 cm subcutaneous enhancing fluid collection consistent with subcutaneous abscess wi thin the right scrotum. This appears to communicate with the skin surface. Clinical correlation is recommended. 2. Diffuse scotal swelling. Daniel Dickerson MD on September 27, 2016 at 15:49 Board Certified Radiologist. This report was verified electronically.
[2016-09-27] MEDS ORDERED: PHARMACY ORDERED LAB-VANCO TROUGH ONE (16:45)
[2016-09-27] MEDS: VANCOMYCIN 1,500 MG/NS 500 ML IV SCH ×2 (17:39)
[2016-09-27] MEDS: ENOXAPARIN SODIUM 40 MG/0.4 ML SYRINGE SQ SCH (17:40)
[2016-09-27] MEDS: TAMSULOSIN HCL 0.4 MG CAP PO SCH (23:56)
[2016-09-28] VITALS (8 sets, daily range): BP systolic 114–141; BP diastolic 59–72; PULSE 71–87; RESP 17–20; TEMP 96.6–98.1; O2SAT 94–99
[2016-09-28] MEDS: RESP: ALBUTEROL 2.5 MG/IPRATROPIUM 0.5 MG NEB (SCH) INH ×6 (00:02→19:49)
[2016-09-28] MEDS: INSULIN DETEMIR 100 UNITS/ML VIAL SQ SCH ×2 (00:02→23:02)
[2016-09-28] MEDS: INSULIN ASPART SUPPLEMENTAL SCALE SQ SCH ×5 (00:04→23:02)
[2016-09-28] MEDS: ACETAMINOPHEN/HYDROcodone 325 MG/7.5 MG TAB PO PRN ×4 (00:42→22:54)
[2016-09-28] MEDS: TEMAZEPAM 15 MG CAP PO PRN ×2 (00:43→22:54)
[2016-09-28] MEDS: SODIUM CHLOR 0.9% 1000 ML INJ 1,000 ML IV SCH ×4 (01:00→23:08)
[2016-09-28] MEDS: PIPERACIL-TAZO 3.375 GM PREMIX 50 ML IV SCH ×4 (04:00→23:04)
[2016-09-28] MEDS ORDERED: VANCOMYCIN INJ 1,100 MG in SODIUM CHLOR 0.9% 250 ML INJ 250 ML IV SCH (10:00)
[2016-09-28 10:15] LABS: HEMATOCRIT 33.2 % (39.0-51.0); MEAN CELL VOLUME 83.8 FL (80.0-100.0); MEAN CORPUSCULAR HGB CONC 32.3 % (32.0-36.0); PLATELET COUNT 167 TH/MM3 (150-450); RED BLOOD COUNT 3.97 MIL/MM3 (4.50-5.90); RED CELL DISTRIBUTION WIDTH 14.6 % (11.6-17.2); REVIEW FLAG FINAL; WHITE BLOOD COUNT 8.9 TH/MM3 (4.0-11.0)
[2016-09-28] MEDS: LISINOPRIL 5 MG TAB PO SCH (10:35)
[2016-09-28] MEDS: PREGABALIN 100 MG CAP PO SCH ×2 (10:36→22:54)
[2016-09-28] MEDS: SODIUM CHLORIDE 0.9% FLUSH 10 ML FLUSH IV FLUSH SCH ×2 (10:37→22:56)
[2016-09-28] MEDS: BUDESONIDE-FORMOTEROL 80/4.5 MCG INHALER INH SCH ×2 (10:37→22:56)
[2016-09-28 10:46] LABS: BICARBONATE 23.2 MEQ/L (21.0-32.0); POTASSIUM 3.7 MEQ/L (3.5-5.1)
--- NOTE | 2016-09-28 11:07 | HHI.PR ---
Subjective Patient symptoms today Pt seen and examined. Feeling better. Objective Vital Signs Vital Signs Date Time Temp Pulse Resp B/P Pulse Ox O2 Delivery O2 Flow Rate FiO2 09/28/16 08:40 96.6 71 19 118/64 95 09/28/16 08:24 94 3.00 09/28/16 08:09 16 09/28/16 04:00 98.1 85 17 114/59 97 09/28/16 03:46 16 09/28/16 00:00 97.2 87 17 141/65 94 09/27/16 20:00 98.2 92 18 106/54 97 09/27/16 19:49 97 Nasal Cannula 3.00 09/27/16 16:00 98.6 80 14 130/69 97 09/27/16 12:00 98.0 105 20 108/68 93 Intake & Output 09/28/16 09/28/16 07:00 19:00 Output Total 1400 ml Balance -1400 ml Output Urine Total 1400 ml # Bowel Movements 1 Result Diagram: 09/28/1690409/28/16904 Objective Remarks Scrotum: erythema/painful to touch Scrotum elevated with towel placed underneath Escamilla with some sediment in urine 09/28 Scrotum: erythema improving; still with swelling Scrotum elevated with towel placed underneath Esc[place] with some sediment in urine Medications and IVs Current Medications Medications (Trade) Dose Ordered Sig/Lela Route Start Time Stop Time Status Last Admin (NS Flush) 2 ml BID IV FLUSH 09/25/16 21:00 09/28/16 10:37 Sodium Chloride 2 ml 2 ml UNSCH PRN IV FLUSH 09/25/16 17:00 Sodium Chloride 1,000 ml @ 125 mls/hr Q8H IV 09/25/16 17:00 09/28/16 10:38 (Vancomycin Consult Pharmacy) 0 ml @ 0 mls/hr UNSCH OTHER 09/25/16 17:00 ([place] 5-325 Mg) 1 tab Q4H PRN PO 09/25/16 17:00 ([place] 7.5-325 Mg) 1 tab Q4H PRN PO 09/25/16 17:00 09/28/16 10:51 Enoxaparin Sodium 40 mg 40 mg Q24H SQ 09/25/16 18:00 09/27/16 17:40 (Zosyn 3.375 Gm Premix) 50 ml @ 100 mls/hr Q6H IV 09/25/16 22:00 09/28/16 10:50 (Morphine Inj) 4 mg Q3H PRN IV 09/25/16 17:15 09/27/16 08:27 (Narcan Inj) 0.4 mg UNSCH PRN IV 09/25/16 17:15 (D50w (Vial) Inj) 50 ml UNSCH PRN IV 09/25/16 17:15 (Glucagon Inj) 1 mg UNSCH PRN OTHER 09/25/16 17:15 (Symbicort 80-4.5 Mcg Inh) 1 puff Q12HR INH 09/25/16 21:00 09/28/16 10:37 (Lyrica) 200 mg BID PO 09/25/16 21:00 09/28/16 10:36 (Flomax) 0.4 mg HS PO 09/25/16 21:00 09/27/16 23:56 (Prinivil) 2.5 mg DAILY PO 09/26/16 09:00 09/28/16 10:35 (Apresoline Inj) 10 mg Q6H PRN IV 09/25/16 21:00 (Levemir Inj) 14 units HS SQ 09/26/16 21:00 09/28/16 00:02 Temazepam 15 mg 15 mg HS PRN PO 09/27/16 00:30 09/28/16 00:43 (Vancomycin Inj/ NS 250 ml Inj) 261 ml @ 250 mls/hr Q12H IV 09/28/16 10:00 09/28/16 10:50 Miscellaneous Information SPECIFIC LAB TO BE DRAWN:VANCO TROUGH DATE TO BE DR... 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 coli UTI Continue IV abx Maintain escamilla for now MRI in AM to evaluate presence of fistula Juan Ramon Herrera DO Sep 28, 2016 11:07
--- NOTE | 2016-09-28 17:26 | HHI.FPPN ---
Subjective Remarks Patient seen and examined this morning. He reports that his scrotal pain is tolerable. He is uncertain if the swelling has improved. No nausea, vomiting, fever, chills, chest pain, shortness of breath, abdominal pain, change in bowel habits, change in urinary habits (on Broderick). No additional complaints. Objective Vitals Vital Signs Date Time Temp Pulse Resp B/P Pulse Ox O2 Delivery O2 Flow Rate FiO2 09/28/16 16:21 96.7 87 20 129/72 97 09/28/16 16:02 99 Nasal Cannula 3.00 09/28/16 12:31 96.9 85 19 124/63 99 09/28/16 08:40 96.6 71 19 118/64 95 09/28/16 08:24 94 3.00 09/28/16 08:09 16 09/28/16 04:00 98.1 85 17 114/59 97 09/28/16 03:46 16 09/28/16 00:00 97.2 87 17 141/65 94 09/27/16 20:00 98.2 92 18 106/54 97 09/27/16 19:49 97 Nasal Cannula 3.00 I/O 09/27/16 09/27/16 09/27/16 09/28/16 09/28/16 09/28/16 07:00 15:00 23:00 07:00 15:00 23:00 Intake Total 120 ml 360 ml 480 ml 728 ml Output Total 400 ml 1250 ml 1400 ml 1000 ml Balance -280 ml -890 ml -1400 ml -520 ml 728 ml Intake Oral 120 ml 360 ml 480 ml IV Total 728 ml Output Urine Total 400 ml 1250 ml 1400 ml 1000 ml # Bowel Movements 1 0 1 Result Diagram: 09/28/1690409/28/16904 Imaging Last Impressions Pelvis MRI 09/27/16 0000 Signed Impressions: Service Date/Time: Tuesday, September 27, 2016 14:38 - CONCLUSION: 1. 1.9 x 2.3 x 1.0 cm subcutaneous enhancing fluid collection consistent with subcutaneous abscess within the right scrotum. This appears to communicate with the skin surface. Clinical correlation is recommended. 2. Diffuse scotal swelling. Daniel Dickerson MD Scrotum Ultrasound 09/25/16 0000 Signed Impressions: Service Date/Time: Sunday, September 25, 2016 13:57 - CONCLUSION: Unremarkable study except for benign calcification involving the left testicle could be in the testicle itself or possibly outside of it. Jolanta Smith MD Pelvis CT 09/25/16 0000 Signed Impressions: Service Date/Time: Sunday, September 25, 2016 15:07 - CONCLUSION: 1. Air in the bladder could be acu genic or infectious. Urinalysis recommended. 2. Scrotal wall thickening. 3. Low lying right kidney. Flip Sandy MD Objective Remarks GENERAL: Well-nourished, well-developed patient. No acute distress. SKIN: Warm and dry. No rash. EYES: No scleral icterus. No injection or drainage. PERRLA. EOMI. HENT: Normocephalic. Atraumatic. MMM. NECK: No visible JVD or lymphadenopathy. CARDIOVASCULAR: Regular rate and rhythm RESPIRATORY: Clear to auscultation bilaterally GASTROINTESTINAL: Abdomen nondistended. : Scrotal swelling (unchanged from yesterday), scrotal erythema, tenderness to palpation scrotum, no necrotic tissue MUSCULOSKELETAL: Strength grossly WNL. BACK: Without obvious deformity. NEURO/PSYCH: Afocal. Awake, alert, and oriented x3. Medications and IVs Current Medications Medications (Trade) Dose Ordered Sig/Lela Route Start Time Stop Time Status Last Admin (NS Flush) 2 ml BID IV FLUSH 09/25/16 21:00 09/28/16 10:37 Sodium Chloride 2 ml 2 ml UNSCH PRN IV FLUSH 09/25/16 17:00 Sodium Chloride 1,000 ml @ 125 mls/hr Q8H IV 09/25/16 17:00 09/28/16 10:38 (Vancomycin Consult Pharmacy) 0 ml @ 0 mls/hr UNSCH OTHER 09/25/16 17:00 ([place]las 5-325 Mg) 1 tab Q4H PRN PO 09/25/16 17:00 ([place] 7.5-325 Mg) 1 tab Q4H PRN PO 09/25/16 17:00 09/28/16 10:51 Enoxaparin Sodium 40 mg 40 mg Q24H SQ 09/25/16 18:00 09/27/16 17:40 (Zosyn 3.375 Gm Premix) 50 ml @ 100 mls/hr Q6H IV 09/25/16 22:00 09/28/16 10:50 (Morphine Inj) 4 mg Q3H PRN IV 09/25/16 17:15 09/27/16 08:27 (Narcan Inj) 0.4 mg UNSCH PRN IV 09/25/16 17:15 (D50w (Vial) Inj) 50 ml UNSCH PRN IV 09/25/16 17:15 (Glucagon Inj) 1 mg UNSCH PRN OTHER 09/25/16 17:15 (Symbicort 80-4.5 Mcg Inh) 1 puff Q12HR INH 09/25/16 21:00 09/28/16 10:37 (Lyrica) 200 mg BID PO 09/25/16 21:00 09/28/16 10:36 (Flomax) 0.4 mg HS PO 09/25/16 21:00 09/27/16 23:56 (Prinivil) 2.5 mg DAILY PO 09/26/16 09:00 09/28/16 10:35 (Apresoline Inj) 10 mg Q6H PRN IV 09/25/16 21:00 (Levemir Inj) 14 units HS SQ 09/26/16 21:00 09/28/16 00:02 Temazepam 15 mg 15 mg HS PRN PO 09/27/16 00:30 09/28/16 00:43 (Vancomycin Inj/ NS 500 ml Inj) 515 ml @ 250 mls/hr Q12H IV 09/28/16 18:00 Miscellaneous Information SPECIFIC LAB TO BE DRAWN:VANCOMYCIN TROUGH DATE TO... ONCE ONCE .XX 09/30/16 05:45 09/30/16 05:46 A/P Assessment and Plan 51-year-old male with history of diabetes and COPD presents with penile and testicle swelling after I&D. Failed outpatient antibiotics. Admitted for IV antibiotics and consultation to urologist. Discharge Planning Pending clinical improvement and urology recommendations SDW: Dr. Montalvo Problem List: (1) Cellulitis of scrotum Status: Acute Plan: Patient presents with swelling and redness of penis and scrotal area. I& D performed on September 02 due to scrotal abscess. The pain and swelling has been worsening. Some dysuria, but no obstructive urinary signs. Concern for Aaron' s gangrene, but ultrasound and CT negative. Mild leukocytosis on admission and normal CRP. Was on Bactrim outpatient. Scrotal US: unremarkable, benign calcification on left testicle Pelvis CT: Air in bladder, scrotal wall thickening Given dose of Vanc/Zosyn in ED -Continue Vancomycin q12H, pharmacy consult -Continue Zosyn 3.375g q6h -Urology consult-appreciate recs -Pt known to Dr. Herrera - MRI pelvis completed, F/U urology recommendation -Blood culture pending -MRI pending (2) Diabetes Status: Acute Plan: History of chronic diabetes on insulin. Patient is on Levemir 24 units twice a day and Humalog sliding scale 3 times a day. Most recent blood glucoses have been 293, 260, 283 -Continue Levemir 14 units at night. -Sliding scale insulin -Monitor blood glucose levels -May need to adjust long-acting insulin pending glucose levels (3) UTI (urinary tract infection) Status: Acute Plan: Urine culture Escherichia coli Antibiotics as above, vancomycin and Zosyn IV fluids NS at 125 MLS per hour (4) COPD (chronic obstructive pulmonary disease) Status: Chronic Plan: History of chronic COPD, on nebulizer, Symbicort, and 2 L of oxygen at home. -Continue Symbicort -DuoNeb's every 4 hours and albuterol when necessary (5) Hypertension Status: Chronic Plan: History of hypertension. -Continue home lisinopril -Hydralazine PRN (6) Tobacco abuse Status: Chronic Plan: Pt smoking 1 PPD, not interested in quitting at this time -Counseled on risks of smoking and benefits of quitting (7) FEN Status: Acute Plan: Fluids: NS @ 125mls/hr we'll continue IV fluids due to UTI Electrolytes: wnl, continue to monitor Nutrition: Diabetic diet DVT ppx: Lovenox Problem Qualifiers (1) Diabetes: Qualified Code: E11.59 - Type 2 diabetes mellitus with other circulatory complication, with long-term current use of insulin (2) UTI (urinary tract infection): Qualified Code: N30.00 - Acute cystitis without hematuria (3) COPD (chronic obstructive pulmonary disease): Qualified Code: J44.9 - Chronic obstructive pulmonary disease, unspecified COPD type (4) Hypertension: Qualified Code: I10 - Essential hypertension Ben Preciado MD R1 Sep 28, 2016 17:26
[2016-09-28] MEDS: ENOXAPARIN SODIUM 40 MG/0.4 ML SYRINGE SQ SCH (18:29)
[2016-09-28] MEDS: VANCOMYCIN INJ 1,500 MG in SODIUM CHLORID 0.9% 500 ML INJ 500 ML IV SCH (20:07)
[2016-09-28] MEDS ORDERED: PHARMACY ORDERED LAB ONE (21:45)
[2016-09-28] MEDS: TAMSULOSIN HCL 0.4 MG CAP PO SCH (22:54)
[2016-09-29] VITALS (9 sets, daily range): BP systolic 109–148; BP diastolic 62–72; PULSE 77–137; RESP 16–20; TEMP 96.5–98.1; O2SAT 94–99
[2016-09-29] MEDS: RESP: ALBUTEROL 2.5 MG/IPRATROPIUM 0.5 MG NEB (SCH) INH ×5 (00:34→14:19)
[2016-09-29] MEDS: PIPERACIL-TAZO 3.375 GM PREMIX 50 ML IV SCH ×4 (03:39→21:12)
[2016-09-29] MEDS: ACETAMINOPHEN/HYDROcodone 325 MG/7.5 MG TAB PO PRN ×2 (03:41→09:49)
[2016-09-29] MEDS: VANCOMYCIN INJ 1,500 MG in SODIUM CHLORID 0.9% 500 ML INJ 500 ML IV SCH ×2 (06:06→17:53)
[2016-09-29] MEDS: INSULIN ASPART SUPPLEMENTAL SCALE SQ SCH ×4 (06:13→21:20)
[2016-09-29 07:51] LABS: HEMATOCRIT 33.9 % (39.0-51.0); MEAN CELL VOLUME 83.9 FL (80.0-100.0); MEAN CORPUSCULAR HEMOGLOBIN 27.3 PG (27.0-34.0); MEAN CORPUSCULAR HGB CONC 32.5 % (32.0-36.0); PLATELET COUNT 176 TH/MM3 (150-450); RED BLOOD COUNT 4.04 MIL/MM3 (4.50-5.90); RED CELL DISTRIBUTION WIDTH 14.6 % (11.6-17.2); REVIEW FLAG FINAL; WHITE BLOOD COUNT 10.1 TH/MM3 (4.0-11.0)
--- NOTE | 2016-09-29 08:07 | HHI.PR ---
Subjective Patient symptoms today Pt seen and examined. MRI reviewed. Objective Vital Signs Vital Signs Date Time Temp Pulse Resp B/P Pulse Ox O2 Delivery O2 Flow Rate FiO2 09/29/16 04:40 16 09/29/16 04:00 96.5 78 18 109/62 98 09/29/16 00:37 98 Nasal Cannula 4.00 09/29/16 00:00 97.7 137 18 123/69 97 09/28/16 23:54 16 09/28/16 20:00 97.5 80 17 128/68 96 09/28/16 16:21 96.7 87 20 129/72 97 09/28/16 16:02 99 Nasal Cannula 3.00 09/28/16 12:31 96.9 85 19 124/63 99 09/28/16 08:40 96.6 71 19 118/64 95 09/28/16 08:24 94 3.00 Intake & Output 09/29/16 09/29/16 06:59 18:59 Output Total 1350 ml Balance -1350 ml Output Urine Total 1350 ml # Bowel Movements 1 Result Diagram: 09/29/16 0738 09/28/16 0905 Objective Remarks Scrotum: erythema/painful to touch Scrotum elevated with towel placed underneath [place] with some sediment in urine 09/28 Scrotum: erythema improving; still with swelling Scrotum elevated with towel placed underneath [place] with some sediment in urine 09/29 Scrotum: erythema improving; still with swelling; scrotal abcess on MRI Esc[place]illa with sediment Medications and IVs Current Medications Medications (Trade) Dose Ordered Sig/Lela Route Start Time Stop Time Status Last Admin (NS Flush) 2 ml BID IV FLUSH 09/25/16 21:00 09/28/16 10:37 Sodium Chloride 2 ml 2 ml UNSCH PRN IV FLUSH 09/25/16 17:00 Sodium Chloride 1,000 ml @ 125 mls/hr Q8H IV 09/25/16 17:00 09/28/16 23:08 (Vancomycin Consult Pharmacy) 0 ml @ 0 mls/hr UNSCH OTHER 09/25/16 17:00 ([place] 5-325 Mg) 1 tab Q4H PRN PO 09/25/16 17:00 ([place] 7.5-325 Mg) 1 tab Q4H PRN PO 09/25/16 17:00 09/29/16 03:41 Enoxaparin Sodium 40 mg 40 mg Q24H SQ 09/25/16 18:00 09/28/16 18:29 (Zosyn 3.375 Gm Premix) 50 ml @ 100 mls/hr Q6H IV 09/25/16 22:00 09/29/16 03:39 (Morphine Inj) 4 mg Q3H PRN IV 09/25/16 17:15 09/27/16 08:27 (Narcan Inj) 0.4 mg UNSCH PRN IV 09/25/16 17:15 (D50w (Vial) Inj) 50 ml UNSCH PRN IV 09/25/16 17:15 (Glucagon Inj) 1 mg UNSCH PRN OTHER 09/25/16 17:15 (Symbicort 80-4.5 Mcg Inh) 1 puff Q12HR INH 09/25/16 21:00 09/28/16 22:56 (Lyrica) 200 mg BID PO 09/25/16 21:00 09/28/16 22:54 (Flomax) 0.4 mg HS PO 09/25/16 21:00 09/28/16 22:54 (Prinivil) 2.5 mg DAILY PO 09/26/16 09:00 09/28/16 10:35 (Apresoline Inj) 10 mg Q6H PRN IV 09/25/16 21:00 (Levemir Inj) 14 units HS SQ 09/26/16 21:00 09/28/16 23:02 Temazepam 15 mg 15 mg HS PRN PO 09/27/16 00:30 09/28/16 22:54 (Vancomycin Inj/ NS 500 ml Inj) 515 ml @ 250 mls/hr Q12H IV 09/28/16 18:00 09/29/16 06:06 Miscellaneous Information SPECIFIC LAB TO BE DRAWN:VANCOMYCIN TROUGH DATE TO... 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 coli UTI Continue IV abx Maintain escamilla for now MRI in AM to evaluate presence of fistula 09/29 61 y.o male with scrotal cellulitis and scrotal abcess on MRI For I&D in OR tomorrow Juan Ramon Herrera DO Sep 29, 2016 08:06
[2016-09-29 08:16] LABS: BICARBONATE 25.1 MEQ/L (21.0-32.0); POTASSIUM 3.8 MEQ/L (3.5-5.1)
[2016-09-29] MEDS: SODIUM CHLORIDE 0.9% FLUSH 10 ML FLUSH IV FLUSH SCH ×2 (09:00→21:00)
[2016-09-29] MEDS: BUDESONIDE-FORMOTEROL 80/4.5 MCG INHALER INH SCH ×2 (09:49→21:13)
[2016-09-29] MEDS: LISINOPRIL 5 MG TAB PO SCH (09:49)
[2016-09-29] MEDS: PREGABALIN 100 MG CAP PO SCH ×2 (09:49→21:12)
[2016-09-29] MEDS: SODIUM CHLOR 0.9% 1000 ML INJ 1,000 ML IV SCH (14:30)
[2016-09-29] MEDS: ACETAMINOPHEN/HYDROcodone 325 MG/10 MG TAB PO PRN ×2 (14:31→21:12)
--- NOTE | 2016-09-29 16:09 | HHI.FPPN ---
Subjective Remarks Patient seen and examined this morning. No acute events overnight. AFVSS. Pt reports discomfort in his scrotum and penis. Swelling is unchanged. He denies chest pain. Endorses occasionally feeling short of breath. Denies abdominal pain. No lower extremity pain. Objective Vitals Vital Signs Date Time Temp Pulse Resp B/P Pulse Ox O2 Delivery O2 Flow Rate FiO2 09/29/16 12:00 98.0 83 20 148/72 95 09/29/16 09:23 99 Nasal Cannula 3.00 09/29/16 08:00 97.8 78 16 121/70 96 09/29/16 08:00 97.8 78 16 121/70 96 09/29/16 08:00 97.8 09/29/16 04:40 16 09/29/16 04:00 96.5 78 18 109/62 98 09/29/16 00:37 98 Nasal Cannula 4.00 09/29/16 00:00 97.7 137 18 123/69 97 09/28/16 23:54 16 09/28/16 20:00 97.5 80 17 128/68 96 09/28/16 16:21 96.7 87 20 129/72 97 I/O 09/28/16 09/28/16 09/28/16 09/29/16 09/29/16 09/29/16 07:00 15:00 23:00 07:00 15:00 23:00 Intake Total 480 ml 728 ml 300 ml Output Total 1400 ml 1000 ml 550 ml 800 ml 475 ml Balance -1400 ml -520 ml 178 ml -800 ml -175 ml Intake Oral 480 ml 300 ml IV Total 728 ml Output Urine Total 1400 ml 1000 ml 550 ml 800 ml 475 ml # Bowel Movements 1 1 0 Result Diagram: 09/29/1638 09/29/16 0738 Objective Remarks GENERAL: Well-nourished, well-developed patient. No acute distress. SKIN: Warm and dry. No rash. EYES: No scleral icterus. No injection or drainage. PERRLA. EOMI. HENT: Normocephalic. Atraumatic. MMM. NECK: No visible JVD or lymphadenopathy. CARDIOVASCULAR: Regular rate and rhythm RESPIRATORY: Clear to auscultation bilaterally GASTROINTESTINAL: Abdomen non tender, +BS. : Scrotal swelling and erythema(unchanged from yesterday), tenderness to palpation scrotum, no necrotic tissue. Shaft of penis is also edematous and erythematous. MUSCULOSKELETAL: Strength grossly WNL. NEURO/PSYCH: Afocal. Awake, alert, and oriented x3. A/P Assessment and Plan 51-year-old male with history of diabetes and COPD presents with penile and testicle swelling after I&D. Failed outpatient antibiotics. Admitted for IV antibiotics and consultation to urologist. Discharge Planning Pending clinical improvement and urology recommendations Problem List: (1) Cellulitis of scrotum Status: Acute Plan: Patient presents with swelling and redness of penis and scrotal area. I& D performed on September 02 due to scrotal abscess. The pain and swelling has been worsening. Some dysuria, but no obstructive urinary signs. Concern for Aaron' s gangrene, but ultrasound and CT negative. Mild leukocytosis on admission and normal CRP. Was on Bactrim outpatient. -Continue Vancomycin q12H, pharmacy consult -Continue Zosyn 3.375g q6h -Urology consult-appreciate recs -Pt known to Dr. Herrera - MRI pelvis completed, anticipate IND in the OR tomorrow -Blood culture no growth to date -MRI pending Imaging: Scrotal US: unremarkable, benign calcification on left testicle Pelvis CT: Air in bladder, scrotal wall thickening (2) Diabetes Status: Acute Plan: History of chronic diabetes on insulin. Patient is on Levemir 24 units twice a day and Humalog sliding scale 3 times a day. -Increase from 14 to Levemir 16 units at night. -Sliding scale insulin -Monitor blood glucose levels -May need to adjust long-acting insulin pending glucose levels (3) UTI (urinary tract infection) Status: Acute Plan: Urine culture Escherichia coli Antibiotics as above See fluids below (4) COPD (chronic obstructive pulmonary disease) Status: Chronic Plan: History of chronic COPD, on nebulizer, Symbicort, and 2 L of oxygen at home. -Continue Symbicort -DuoNeb's every 4 hours -Albuterol PRN (5) Hypertension Status: Chronic Plan: History of hypertension. -Continue home lisinopril -Hydralazine PRN (6) Tobacco abuse Status: Chronic Plan: Pt smoking 1 PPD, not interested in quitting at this time -Counseled on risks of smoking and benefits of quitting (7) FEN Status: Acute Plan: Fluids: NS @ 125mls/hr we'll continue IV fluids due to UTI Electrolytes: wnl, continue to monitor Nutrition: Diabetic diet DVT ppx: will hold lovenox in anticipation of procedure tomorrow. To be resumed after procedure. Problem Qualifiers (1) Diabetes: Qualified Code: E11.59 - Type 2 diabetes mellitus with other circulatory complication, with long-term current use of insulin (2) UTI (urinary tract infection): Qualified Code: N30.00 - Acute cystitis without hematuria (3) COPD (chronic obstructive pulmonary disease): Qualified Code: J44.9 - Chronic obstructive pulmonary disease, unspecified COPD type (4) Hypertension: Qualified Code: I10 - Essential hypertension Shayy Alexis MD R2 Sep 29, 2016 16:09
[2016-09-29] MEDS ORDERED: INSULIN DETEMIR 100 UNITS/ML VIAL SQ SCH (21:00)
[2016-09-29] MEDS: TEMAZEPAM 15 MG CAP PO PRN (21:11)
[2016-09-29] MEDS: TAMSULOSIN HCL 0.4 MG CAP PO SCH (21:12)
[2016-09-30] VITALS: BP 113/69; PULSE 78; RESP 17; TEMP 97.9; O2SAT 96
[2016-09-30] MEDS: SODIUM CHLOR 0.9% 1000 ML INJ 1,000 ML IV SCH (01:05)
[2016-09-30] MEDS: ACETAMINOPHEN/HYDROcodone 325 MG/10 MG TAB PO PRN ×3 (01:55→21:20)
[2016-09-30 04:00] VITALS: BP 135/72; PULSE 78; RESP 17; TEMP 99.3; O2SAT 92
[2016-09-30] MEDS: PIPERACIL-TAZO 3.375 GM PREMIX 50 ML IV SCH ×4 (04:20→16:00)
[2016-09-30] MEDS ORDERED: PHARMACY ORDERED LAB ONE (05:45)
[2016-09-30] MEDS: VANCOMYCIN INJ 1,500 MG in SODIUM CHLORID 0.9% 500 ML INJ 500 ML IV SCH (06:07)
[2016-09-30 06:43] LABS: ANION GAP 7 MEQ/L (5-15); AST (GOT) 9 U/L (15-37); BICARBONATE 23.9 MEQ/L (21.0-32.0); BLOOD UREA NITROGEN 18 MG/DL (7-18); CHLORIDE 111 MEQ/L (98-107); GLOMERULAR FILTRATION RATE 52 ML/MIN (>89); POTASSIUM 3.9 MEQ/L (3.5-5.1); SODIUM (NA) 142 MEQ/L (136-145)
[2016-09-30 06:44] LABS: ALT (GPT) 15 U/L (12-78)
[2016-09-30 06:46] LABS: ALKALINE PHOSPHATASE 62 U/L (45-117); TOTAL BILIRUBIN ADULT 0.5 MG/DL (0.2-1.0)
[2016-09-30] MEDS: INSULIN ASPART SUPPLEMENTAL SCALE SQ SCH ×4 (06:50→21:00)
[2016-09-30 07:06] LABS: AUTOMATED NEUTROPHIL # 6.7 TH/MM3 (1.8-7.7); BASOPHIL % 0.4 % (0.0-2.0); EOSINOPHIL # 0.2 TH/MM3 (0-0.4); EOSINOPHIL % 1.8 % (0.0-4.0); HEMATOCRIT 37.5 % (39.0-51.0); HEMO FLAGS DIFF FINAL; LYMPH % 16.9 % (9.0-44.0); LYMPHOCYTE # 1.6 TH/MM3 (1.0-4.8); MEAN CELL VOLUME 84.8 FL (80.0-100.0); MEAN CORPUSCULAR HEMOGLOBIN 27.5 PG (27.0-34.0); MEAN CORPUSCULAR HGB CONC 32.4 % (32.0-36.0); MONO % 9.5 % (0.0-8.0); NEUT % 71.4 % (16.0-70.0); PLATELET COUNT 179 TH/MM3 (150-450); RED BLOOD COUNT 4.42 MIL/MM3 (4.50-5.90); WHITE BLOOD COUNT 9.4 TH/MM3 (4.0-11.0)
[2016-09-30 08:00] VITALS: BP 121/76; PULSE 72; RESP 18; TEMP 97.4; O2SAT 94
--- NOTE | 2016-09-30 08:25 | HHI.FPPN ---
Subjective Remarks Pt seen and examined this morning. No acute events overnight. Pt reports feeling okay this morning. He denies chest pain, abdominal pain, leg pain, diarrhea. He endorses feeling more short of breath. He has a cough that has been non-productive. He feels like he has to cough but is not able to get anything up. He anticipates going for I&D in the OR later today, time unclear. Objective Vitals Vital Signs Date Time Temp Pulse Resp B/P Pulse Ox O2 Delivery O2 Flow Rate FiO2 09/30/16 04:00 99.3 78 17 135/72 92 09/30/16 02:47 16 09/30/16 00:00 97.9 78 17 113/69 96 09/29/16 22:12 16 09/29/16 20:46 94 Nasal Cannula 3.00 09/29/16 20:00 98.1 98 18 138/65 95 09/29/16 16:00 97.7 77 20 114/64 94 09/29/16 12:00 98.0 83 20 148/72 95 09/29/16 09:23 99 Nasal Cannula 3.00 I/O 09/29/16 09/29/16 09/29/16 09/30/16 09/30/16 09/30/16 06:59 14:59 22:59 06:59 14:59 22:59 Intake Total 300 ml 1000 ml 758 ml Output Total 800 ml 475 ml 600 ml 900 ml Balance -800 ml -175 ml 400 ml -142 ml Intake Oral 300 ml IV Total 1000 ml 758 ml Output Urine Total 800 ml 475 ml 600 ml 900 ml # Bowel Movements 0 1 Result Diagram: 09/30/16 0550 09/30/16 0550 Objective Remarks GENERAL: Well-nourished, well-developed patient. No acute distress. SKIN: Warm and dry. No rash. EYES: No scleral icterus. No injection or drainage. PERRLA. EOMI. HENT: Normocephalic. Atraumatic. MMM. NECK: No visible JVD or lymphadenopathy. CARDIOVASCULAR: Regular rate and rhythm RESPIRATORY: Diffuse expiratory wheezing, mild bibasilar crackles. GASTROINTESTINAL: Abdomen non tender, +BS. : Scrotal swelling and erythema(unchanged from yesterday), tenderness to palpation scrotum, no necrotic tissue. Shaft of penis is also edematous and erythematous. MUSCULOSKELETAL: Strength grossly WNL. NEURO/PSYCH: Afocal. Awake, alert, and oriented x3. A/P Assessment and Plan 51-year-old male with history of diabetes and COPD presents with penile and testicle swelling after I&D. Failed outpatient antibiotics. Admitted for IV antibiotics and consultation to urologist. Discharge Planning Time frame unclear. Pending improvement of infection and urology recommendations. Problem List: (1) Cellulitis of scrotum Status: Acute Plan: Patient presents with swelling and redness of penis and scrotal area. I& D performed on September 02 due to scrotal abscess. The pain and swelling has been worsening. Some dysuria, but no obstructive urinary signs. Concern for Aaron' s gangrene, but ultrasound and CT negative. Mild leukocytosis on admission and normal CRP. Was on Bactrim outpatient. -Continue Vancomycin q12H, pharmacy consult -Continue Zosyn 3.375g q6h -Urology consult-appreciate recs -Pt known to Dr. Herrera - MRI pelvis completed, anticipate I&D later today -Blood culture no growth to date Imagin09/27/2016 Pelvis MRI: 1.91.21.0 cm subcutaneous enhancing fluid collection consistent with subcutaneous abscess within the right scrotum. This appears to be communicating with the skin surface. Scrotal US: unremarkable, benign calcification on left testicle Pelvis CT: Air in bladder, scrotal wall thickening (2) Diabetes Status: Acute Plan: History of chronic diabetes on insulin. Patient is on Levemir 24 units twice a day and Humalog sliding scale 3 times a day. -Increase from 16 to Levemir 18 units at night, pt is now on steroids which will impact blood sugar. -Sliding scale insulin -Monitor blood glucose levels -May need to adjust long-acting insulin pending glucose levels (3) UTI (urinary tract infection) Status: Acute Plan: Urine culture Escherichia coli Antibiotics as above See fluids below (4) COPD (chronic obstructive pulmonary disease) Status: Chronic Plan: History of chronic COPD, on nebulizer, Symbicort, and 2 L of oxygen at home. Patient endorses shortness of breath -Continue Symbicort -DuoNeb's every 4 hours -Albuterol PRN -Prednisone 40 mg po 1 09/30 -Prednisone 20 mg po BID starting on 10/01 -Continue to monitor, consider increasing steroids if needed (5) Hypertension Status: Chronic Plan: History of hypertension. -Continue home lisinopril -Hydralazine PRN (6) Tobacco abuse Status: Chronic Plan: Pt smoking 1 PPD, not interested in quitting at this time -Counseled on risks of smoking and benefits of quitting (7) FEN Status: Acute Plan: Fluids: We'll hold fluids due to concern for fluid overload Electrolytes: wnl, continue to monitor Nutrition: Diabetic diet DVT ppx: Lovenox to be resumed after procedure. Problem Qualifiers (1) Diabetes: Qualified Code: E11.59 - Type 2 diabetes mellitus with other circulatory complication, with long-term current use of insulin (2) UTI (urinary tract infection): Qualified Code: N30.00 - Acute cystitis without hematuria (3) COPD (chronic obstructive pulmonary disease): Qualified Code: J44.9 - Chronic obstructive pulmonary disease, unspecified COPD type (4) Hypertension: Qualified Code: I10 - Essential hypertension Shayy Alexis MD R2 Sep 30, 2016 08:25
[2016-09-30] MEDS ORDERED: predniSONE 20 MG TAB PO ONE (08:30)
[2016-09-30] MEDS: PREGABALIN 100 MG CAP PO SCH ×2 (08:42→21:00)
[2016-09-30] MEDS: LISINOPRIL 5 MG TAB PO SCH (08:42)
[2016-09-30] MEDS: SODIUM CHLORIDE 0.9% FLUSH 10 ML FLUSH IV FLUSH SCH ×2 (08:42→20:41)
[2016-09-30] MEDS: BUDESONIDE-FORMOTEROL 80/4.5 MCG INHALER INH SCH ×2 (08:42→21:00)
[2016-09-30] MEDS ORDERED: MIDAZOLAM HCL 2 MG/2 ML VIAL ONE (10:15)
[2016-09-30] MEDS ORDERED: FAMOTIDINE 20 MG/2 ML VIAL ONE (10:15)
[2016-09-30 10:30] VITALS: O2SAT 94
[2016-09-30] MEDS ORDERED: methylPREDNISolone SOD SUCC 125 MG/2 ML VIAL ONE (11:17)
--- NOTE | 2016-09-30 11:51 | PD.OP ---
Operative Report Date of Surgery: Sep 30, 2016 Preoperative Diagnosis: UTI, scrotal abscess, history of urethrocutaneous fistula Postoperative Diagnosis: UTI and scrotal abscess Procedure: Retrograde urethrogram, cystoscopy, I and D of scrotal abscess Anesthesia: VIVIAN Surgeon: Juan Ramon Herrera Employee Relations Consultant(s): Krissy Resident Surgeon: None Operation and Findings: 61-year-old male admitted with scrotal cellulitis and glucose levels in the 600s. Patient found a UTI and admission. MRI demonstrated a right hemiscrotal abscess and questionable urethrocutaneous fistula. Plan was to bring the patient to the operating room undergo retrograde urethrogram to rule out presence of urethrocutaneous fistula, perform cystoscopy, and perform I and D of right hemiscrotal abscess. Risk and benefits were discussed preoperatively with the patient he was willing to proceed. Patient was brought to operating room identify myself as Vin Blair. He was placed on the operating room table in the supine position and then was frog leg in order to perform the retrograde urethrogram. Patient received preprocedure antibiotics, was prepped and draped in usual sterile fashion, and received general endotracheal tube anesthesia. 12 [place] Broderick catheter was inserted into the fossa navicularis and 3 cc were inflated into the balloon. the retrograde urethrogram was performed and showed no evidence of extravasation with the urethra entirely intact. flexible cystoscopy was then performed showing coaptation of prosthetic lobes and erythema throughout the bladder but no evidence of any bladder tumors noted. the prostate was noted to be coapting with some friability. the cystoscope was then removed. Attention is then directed to the right scrotal abscess area. 15 blade was used to make the incision over the abscess and pus was noted to drain after opening. The area was washed with saline and then iodoform gauze was packed into the wound. Scrotal support with fluffs were then applied and a 16 [place] Broderick catheter was inserted in the bladder. He tolerated the procedure well and there no complications. Plan will be to maintain catheter drainage despite point and continue with IV antibiotics. Daily dressing changes will also need to be performed. Juan Ramon Herrera DO Sep 30, 2016 11:51
[2016-09-30] MEDS ORDERED: PHENYLEPH/NS 1000 MCG/10 ML SYR IV ONE (12:00)
[2016-09-30] MEDS ORDERED: PROPOFOL 200 MG/20 ML AMP IV ONE (12:00)
[2016-09-30] MEDS ORDERED: NEOSTIGMINE 3 MG/3 ML SYR IV ONE (12:00)
[2016-09-30] MEDS ORDERED: ONDANSETRON HCL 4 MG/2 ML VIAL IV PUSH ONE (12:00)
[2016-09-30] MEDS ORDERED: RESP: ALBUTEROL 2.5 MG/IPRATROPIUM 0.5 MG NEB (SCH) ONE (12:22)
[2016-09-30] MEDS ORDERED: DO NOT ADM ANY ANTICOAGULANT DRUGS PRN (12:23)
[2016-09-30] MEDS ORDERED: fentaNYL CITRATE 250 MCG/5 ML AMP ONE (12:28)
[2016-09-30] MEDS ORDERED: DILTIAZEM 125 MG/NS 100 ML IV SCH ×2 (14:45)
[2016-09-30] MEDS ORDERED: DILTIAZEM HCL 25 MG/5 ML VIAL IV PUSH PRN (14:45)
--- NOTE | 2016-09-30 14:56 | EKG ---
Date Performed: 09/30/2016 Time Performed: 13:48:30 PTAGE: 61 years EKG: Sinus rhythm with frequent PACs BORDERLINE RIGHT AXIS DEVIATION LOW QRS VOLTAGE IN EXTREMITY LEADS ABNORMAL RHYTH M ECG PACs are new PREVIOUS TRACING : 09/25/2016 12.51 DOCTOR: Issac Giles Interpretating Date/Time 09/30/2016 14:55:01
--- NOTE | 2016-09-30 14:58 | PD.CONS ---
HPI Service Critical Care Medicine Consult Requested By Anesthesiology Service Reason for Consult Severe bronchospasm, COPD - exacerbated Primary Care Physician Edenilson Hoang MD History of Present Illness 61 y/o patient with poorly controlled diabetes and longstanding COPD presents with recurrent testicular abscess, care of whom is complicated by a schizo- affective disorder. Now in PACU with severe bronchospasm and paroxysmal atrial fibrillation associated with rapid ventricular response. Incomplete bundle branch pathology and wheezing complicates choices for rate control. Ideally, we' d keep him in sinus rhythm. Review of Systems Constitutional: DENIES: Diaphoretic episodes, Fatigue, Fever, Weight gain, Weight loss, Chills, Dizziness, Change in appetite, Night Sweats Endocrine: DENIES: Heat/cold intolerance, Polydipsia, Polyuria, Polyphagia Eyes: DENIES: Blurred vision, Diplopia, Eye inflammation, Eye pain, Vision loss , Photosensitivity, Double Vision Ears, nose, mouth, throat: DENIES: Tinnitus, Hearing loss, Vertigo, Nasal discharge, Oral lesions, Throat pain, Hoarseness, Ear Pain, Running Nose, Epistaxis, Sinus Pain, Toothache, Odynophagia Respiratory: COMPLAINS OF: Wheezing, Shortness of breath Cardiovascular: DENIES: Chest pain, Palpitations, Syncope, Dyspnea on Exertion , PND, Lower Extremity Edema, Orthopnea, Claudication Gastrointestinal: DENIES: Abdominal pain, Black stools, Bloody stools, Constipation, Diarrhea, Nausea, Vomiting, Difficulty Swallowing, Anorexia Genitourinary: COMPLAINS OF: Testicular Pain Musculoskeletal: DENIES: Joint pain, Muscle aches, Stiffness, Joint Swelling, Back pain, Neck pain Integumentary: DENIES: Abnormal pigmentation, Nail changes, Pruritus, Rash ROS SOB. Past Family Social History Allergies: Coded Allergies: Gabapentin (Verified Adverse Reaction, Severe, Chest gets tight and he feels lightheaded., 09/25/16) Lantus (Verified Adverse Reaction, Severe, Patient claims severe burning with even low doses. , 09/25/16) Aspirin (Verified Adverse Reaction, Intermediate, UPSET STOMACH Can take coated , 09/25/16) PATIENT DENIES ALLERGY, SAYS IF HE TAKES UNCOATED ASA HE GETS UPSET STOMACH. 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) Past Medical History Past Medical History Hx Anticoagulant Therapy: Yes Arthritis: Yes (rue) Asthma: Yes Blood Disorders: No Anxiety: Yes Depression: No Heart Rhythm Problems: Yes (arrythmia ) Cancer: No Cardiovascular Problems: Yes (htn, palpitations) High Cholesterol: Yes Chemotherapy: No Chest Pain: Yes Congestive Heart Failure: No COPD: No Diabetes: Yes Patient Takes Glucophage: Yes Diminished Hearing: No Endocrine: Yes Gastrointestinal Disorders: Yes (GERD, ulcers, appendectomy, ) GERD: Yes Glaucoma: No Genitourinary: Yes (fistula ) Hepatitis: No Hiatal Hernia: No Hypertension: Yes Immune Disorder: No Medical other: Yes (penial edema also the scrotal area) Musculoskeletal: No Neurologic: No Psychiatric: Yes Reproductive: No Respiratory: Yes (copd) Radiation Therapy: No Sleep Apnea: Yes Thyroid Disease: No Ulcer: Yes Influenza Vaccination: No Past Surgical History Abdominal Surgery: Yes (APPY) AICD: No Appendectomy: Yes Body Medical Devices: LEG STENT kieran, Genitourinary Surgery: Yes (TURP ; 08/14 CYSTOSCOPY; 10/14 EUA) Joint Replacement: No Pacemaker: No Other Surgery: Yes Social History Alcohol Use: No Tobacco Use: Yes (1 PPD of cigaretts and cigars) Substance Use: No Allergies-Medications Allergies-Medications (Allergen,Severity, Reaction): Coded Allergies: Gabapentin (Verified Adverse Reaction, Severe, Chest gets tight and he feels lightheaded., 09/25/16) Lantus (Verified Adverse Reaction, Severe, Patient claims severe burning with even low doses. , 09/25/16) Aspirin (Verified Adverse Reaction, Intermediate, UPSET STOMACH Can take coated , 09/25/16) PATIENT DENIES ALLERGY, SAYS IF HE TAKES UNCOATED ASA HE GETS UPSET STOMACH. 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 Lisinopril 2.5 Mg Tab 2.5 Mg PO DAILY Reported Lortab (Hydrocodone-Acetaminophen) 5-325 Mg Tab 1 Tab PO Q4H PRN Duoneb (Ipratropium-Albuterol Neb) 0.5-2.5 Mg/3 Ml Neb 1 Nebule INH Q8HR NEB Physical Exam Vital Signs Vital Signs Date Time Temp Pulse Resp B/P Pulse Ox O2 Delivery O2 Flow Rate FiO2 09/30/16 13:00 76 16 119/59 91 Nasal Cannula 4 09/30/16 12:45 77 16 113/56 93 Nasal Cannula 4 09/30/16 12:37 84 15 113/56 90 Simple Mask 6 09/30/16 12:20 97.2 90 16 121/58 93 Simple Mask 8 09/30/16 10:30 94 Nasal Cannula 3.00 09/30/16 08:00 97.4 72 18 121/76 94 09/30/16 04:00 99.3 78 17 135/72 92 09/30/16 02:47 16 09/30/16 00:00 97.9 78 17 113/69 96 09/29/16 22:12 16 09/29/16 20:46 94 Nasal Cannula 3.00 09/29/16 20:00 98.1 98 18 138/65 95 09/29/16 16:00 97.7 77 20 114/64 94 Physical Exam P 80s with paroxysmal runs of irreg at 140s, SBP 144, R 17 labored Head: Blue nose. Neck: Supple, airway widely patent, transmitted wheezes. Lungs: Diffuse wheezes, prolonged expiratory phase. Labored. Heart: Distant tone, freq PMB. Neck veins flat. Abdomen: Round, soft, no guarding. Extremities: Warm, well perfused. No edema. Neuro: Talkative, tangential pattern. Moves 4 limbs to command, but pretends he can't move his left leg. DAVID, EOMs intact. Laboratory Laboratory Tests Test 09/30/16 05:50 White Blood Count 9.4 Red Blood Count 4.42 Hemoglobin 12.2 Hematocrit 37.5 Mean Corpuscular Volume 84.8 Mean Corpuscular Hemoglobin 27.5 Mean Corpuscular Hemoglobin 32.4 Concent Red Cell Distribution Width 15.0 Platelet Count 179 Mean Platelet Volume 9.3 Neutrophils (%) (Auto) 71.4 Lymphocytes (%) (Auto) 16.9 Monocytes (%) (Auto) 9.5 Eosinophils (%) (Auto) 1.8 Basophils (%) (Auto) 0.4 Neutrophils # (Auto) 6.7 Lymphocytes # (Auto) 1.6 Monocytes # (Auto) 0.9 Eosinophils # (Auto) 0.2 Basophils # (Auto) 0.0 CBC Comment DIFF FINAL Differential Comment Sodium Level 142 Potassium Level 3.9 Chloride Level 111 Carbon Dioxide Level 23.9 Anion Gap 7 Blood Urea Nitrogen 18 Creatinine 1.40 Estimat Glomerular Filtration 52 Rate Random Glucose 166 Calcium Level 8.8 Total Bilirubin 0.5 Aspartate Amino Transf 9 (AST/SGOT) Alanine Aminotransferase 15 (ALT/SGPT) Alkaline Phosphatase 62 Total Protein 6.9 Albumin 2.5 Vancomycin Level Trough 22.0 Date/Time Procedure Status Source Growth 09/25/16 21:56 Aerobic Blood Culture - Final Complete Blood Peripheral NO GROWTH IN 5 DAYS 09/25/16 21:56 Anaerobic Blood Culture - Final Complete Blood Peripheral NO GROWTH IN 5 DAYS 09/25/16 15:36 Urine Culture - Final Complete Urine Clean Catch Escherichia Coli Result Diagram: 09/30/16 0550 09/30/16 0550 Assessment and Plan Problem List: (1) COPD with exacerbation ICD Code: J44.1 Status: Acute (2) Paroxysmal atrial fibrillation with RVR ICD Code: I48.0 Status: Acute (3) Diabetes type 2, uncontrolled ICD Code: E11.65 Status: Acute Assessment and Plan Plan: 1. Bronchodilators. 2. Steroids. 3. Increased insulin coverage, consider BID levemir. 4. Cardizem bolus and gtt. 5. Hold full anticoagulation - not necessary. 6. DVT prophylaxis with lovenox if OK with urology service. 7. Chemical GI prophylaxis. 8. Hydration. 9. BiPAP prn Overall impression: Tough situation given conduction defects and propensity for bronchospasm. This appears to be pure bronchospasm and not cardiac origin "asthma", but check cardiac markers, BNP, CXR to be sure. Avoid beta blockers ( although selective would probably be safe) and try cardizem to control paroxysms. Check Mag, K, Phos. Critically ill with risk of sudden deterioration requiring intubation. Will follow closely. Consider stopping vancomycin or substitute less nephrotoxic antibiotic. Critical Care 38 mins Problem Qualifiers (1) Diabetes type 2, uncontrolled: Spencer Quinones MD Sep 30, 2016 14:58
[2016-09-30] MEDS ORDERED: POTASSIUM CHLOR 20 MEQ PREMIX 100 ML IV SCH ×2 (15:00→17:00)
[2016-09-30] MEDS: RESP: ALBUTEROL 2.5 MG/3 ML NEB (PRN) NEB ×3 (15:28→22:52)
[2016-09-30 16:17] LABS: ANION GAP 10 MEQ/L (5-15); BICARBONATE 21.1 MEQ/L (21.0-32.0); BLOOD UREA NITROGEN 22 MG/DL (7-18); CHLORIDE 109 MEQ/L (98-107); GLOMERULAR FILTRATION RATE 44 ML/MIN (>89); MAGNESIUM 1.8 MG/DL (1.5-2.5); POTASSIUM 4.8 MEQ/L (3.5-5.1); SODIUM (NA) 140 MEQ/L (136-145)
--- NOTE | 2016-09-30 16:32 | RADRPT ---
EXAM DATE/TIME: 09/30/2016 15:23 [facility] COMPARISON: No previous studies available for comparison. INDICATIONS : Short of breath. MEDICAL HISTORY : Chronic obstructive pulmonary disease. SURGICAL HISTORY : stents in his legs ENCOUNTER: Initial ACUITY: 1 day PAIN SCORE: 0/10 LOCATION: Bilateral chest FINDINGS: A single view of the chest demonstrates bibasilar airspace disease with associated small effusions. H eart size is normal. Osseous structures are intact. CONCLUSION: Bibasilar airspace disease and probable associated effusions. Bertin Estrada MD on September 30, 2016 at 16:10 Board Certified Radiologist. This report was verified electronically.
[2016-09-30] MEDS: MAGNESIUM SULFATE 1 GM PREMIX 100 ML IV SCH ×2 (19:07→20:10)
[2016-09-30] MEDS: TAMSULOSIN HCL 0.4 MG CAP PO SCH (21:00)
[2016-09-30] MEDS ORDERED: INSULIN DETEMIR 100 UNITS/ML VIAL SQ SCH (21:00)
[2016-09-30 22:15] VITALS: BP 129/62; PULSE 80; PULSE 92; RESP 22; TEMP 98.5; O2SAT 92
[2016-09-30 22:52] VITALS: O2SAT 95
[2016-10-01] VITALS (13 sets, daily range): BP systolic 108–146; BP diastolic 56–85; PULSE 56–83; RESP 12–34; TEMP 97.5–98.7; O2SAT 91–98
[2016-10-01] MEDS: PIPERACIL-TAZO 3.375 GM PREMIX 50 ML IV SCH ×5 (00:20→20:54)
[2016-10-01] MEDS: MORPHINE SULFATE 4 MG/ML INJ IV PRN ×2 (01:50→10:00)
[2016-10-01] MEDS: ACETAMINOPHEN/HYDROcodone 325 MG/10 MG TAB PO PRN ×3 (04:33→20:55)
[2016-10-01 05:32] LABS: AUTOMATED NEUTROPHIL # 10.3 TH/MM3 (1.8-7.7); BASOPHIL % 0.3 % (0.0-2.0); EOSINOPHIL % 0.1 % (0.0-4.0); HEMATOCRIT 32.2 % (39.0-51.0); HEMO FLAGS DIFF FINAL; LYMPH % 8.9 % (9.0-44.0); LYMPHOCYTE # 1.1 TH/MM3 (1.0-4.8); MEAN CELL VOLUME 84.6 FL (80.0-100.0); MEAN CORPUSCULAR HEMOGLOBIN 27.6 PG (27.0-34.0); MEAN CORPUSCULAR HGB CONC 32.6 % (32.0-36.0); MONO % 6.5 % (0.0-8.0); NEUT % 84.2 % (16.0-70.0); PLATELET COUNT 180 TH/MM3 (150-450); RED CELL DISTRIBUTION WIDTH 14.6 % (11.6-17.2); WHITE BLOOD COUNT 12.2 TH/MM3 (4.0-11.0)
[2016-10-01 05:56] LABS: ALT (GPT) 12 U/L (12-78); ANION GAP 12 MEQ/L (5-15); AST (GOT) 9 U/L (15-37); BICARBONATE 19.4 MEQ/L (21.0-32.0); BLOOD UREA NITROGEN 30 MG/DL (7-18); CHLORIDE 105 MEQ/L (98-107); GLOMERULAR FILTRATION RATE 29 ML/MIN (>89); POTASSIUM 4.3 MEQ/L (3.5-5.1); SODIUM (NA) 136 MEQ/L (136-145)
[2016-10-01 05:57] LABS: ALKALINE PHOSPHATASE 54 U/L (45-117); TOTAL BILIRUBIN ADULT 0.3 MG/DL (0.2-1.0)
[2016-10-01] MEDS: INSULIN ASPART SUPPLEMENTAL SCALE SQ SCH ×4 (06:39→20:59)
--- NOTE | 2016-10-01 07:00 | HHI.CCPN ---
Subjective Remarks/Hospital Course 61 y/o patient with poorly controlled diabetes and longstanding COPD presents with recurrent testicular abscess, care of whom is complicated by a schizo- affective disorder. Now in PACU with severe bronchospasm and paroxysmal atrial fibrillation associated with rapid ventricular response. Incomplete bundle branch pathology and wheezing complicates choices for rate control. Ideally, we' d keep him in sinus rhythm. 10/01: CXR with effusions, moderately elevated BNP, rising creatinine. Suspect there is an overload or CHF component to his respiratory distress (in addition to his obvious COPD). Heart rate control improved. Objective Vital Signs Date Time Temp Pulse Resp B/P Pulse Ox O2 Delivery O2 Flow Rate FiO2 10/01/16 06:00 71 10/01/16 04:00 97.7 12 108/58 94 09/30/16 22:52 Nasal Cannula 4.00 Intake and Output 09/30/16 09/30/16 10/01/16 08:00 16:00 00:00 Intake Total 758 ml 1000 ml 2033 ml Output Total 900 ml 1510 ml 780 ml Balance -142 ml -510 ml 1253 ml Result Diagram: 10/01/16 0517 10/01/16 0519 Objective Remarks P 65 - 70s, BP 124/77, R 18 labored Head: Blue nose, chronic Neck: Supple, airway widely patent, transmitted wheezes. Lungs: Continued wheezes, prolonged expiratory phase. Labored. Heart: Distant tone, freq PMB. No JVD. Abdomen: Round, soft, no guarding. Extremities: Warm, well perfused. No edema. Neuro: Talkative. Moves 4 limbs to command. DAVID, EOMs intact. A/P Problem List: (1) COPD with exacerbation ICD Code: J44.1 Status: Acute (2) Paroxysmal atrial fibrillation with RVR ICD Code: I48.0 Status: Acute (3) Diabetes type 2, uncontrolled ICD Code: E11.65 Status: Acute Assessment and Plan Plan: 1. Bronchodilators. 2. Steroids. 3. Increased insulin coverage, consider BID levemir. 4. Cardizem bolus and gtt. 5. Hold full anticoagulation - not necessary. 6. DVT prophylaxis with lovenox if OK with urology service. 7. Chemical GI prophylaxis. 8. Hydration. 9. BiPAP prn 10. Cardiac ECHO. Overall impression: Tough situation given conduction defects and propensity for bronchospasm. This initially appeared to be pure bronchospasm but a " cardiac asthma" contribution may be involved as well. Avoid beta blockers ( although selective would probably be safe) and continue cardizem to control paroxysms. Mag, K, Phos are OK. Critically ill with risk of sudden deterioration requiring intubation. Will follow closely. Recommend Nephrology consult, check urine lytes before diuretics. Critical Care 39 mins Problem Qualifiers (1) Diabetes type 2, uncontrolled: Spencer Quinones MD Oct 01, 2016 07:00
[2016-10-01] MEDS ORDERED: DEXTROSE 50% IN WATER 50 ML VIAL(D50) IV PRN (07:15)
[2016-10-01] MEDS ORDERED: GLUCAGON 1 MG/ML VIAL OTHER PRN (07:15)
[2016-10-01] MEDS: SODIUM CHLORIDE 0.9% FLUSH 10 ML FLUSH IV FLUSH SCH ×2 (09:33→21:00)
[2016-10-01] MEDS: LISINOPRIL 5 MG TAB PO SCH (09:34)
[2016-10-01] MEDS: predniSONE 20 MG TAB PO SCH ×2 (09:34→20:54)
[2016-10-01] MEDS: BUDESONIDE-FORMOTEROL 80/4.5 MCG INHALER INH SCH ×2 (09:34→21:00)
[2016-10-01] MEDS: INSULIN DETEMIR 100 UNITS/ML VIAL SQ SCH ×2 (09:53→20:57)
[2016-10-01] MEDS: RESP: ALBUTEROL 2.5 MG/3 ML NEB (PRN) NEB ×2 (10:06→20:51)
--- NOTE | 2016-10-01 10:44 | HHI.PR ---
Subjective Patient symptoms today Pt seen and examined. Events noted. SICU input appreciated. Pt is feeling better today. NSR. C/O swelling of left arm. Objective Vital Signs Vital Signs Date Time Temp Pulse Resp B/P Pulse Ox O2 Delivery O2 Flow Rate FiO2 10/01/16 10:07 96 Nasal Cannula 4.00 10/01/16 10:05 20 10/01/16 08:00 60 10/01/16 07:00 95 Nasal Cannula 3.00 21 10/01/16 06:00 71 10/01/16 04:00 97.7 65 12 108/58 94 10/01/16 04:00 65 10/01/16 02:00 76 10/01/16 00:00 81 10/01/16 00:00 98.7 81 34 126/56 91 09/30/16 22:52 95 Nasal Cannula 4.00 09/30/16 22:15 80 09/30/16 22:15 98.5 92 22 129/62 92 09/30/16 22:15 92 Nasal Cannula 3.00 09/30/16 20:00 98.2 89 20 136/64 95 Nasal Cannula 3 09/30/16 19:30 88 24 126/61 94 Nasal Cannula 3 09/30/16 19:00 97.8 96 18 128/63 94 Nasal Cannula 4 09/30/16 18:00 96 18 124/63 94 Nasal Cannula 4 09/30/16 17:30 82 18 107/55 93 Nasal Cannula 4 09/30/16 17:00 86 20 108/59 93 Nasal Cannula 4 09/30/16 16:45 97.9 91 19 126/56 94 Nasal Cannula 4 09/30/16 16:00 91 19 126/56 94 Nasal Cannula 4 09/30/16 15:45 91 19 117/56 94 Nasal Cannula 4 09/30/16 15:30 88 17 117/57 94 Nasal Cannula 4 09/30/16 15:15 108 17 142/67 93 Nasal Cannula 4 09/30/16 15:00 103 17 142/67 93 Nasal Cannula 4 09/30/16 14:30 96 17 93 Nasal Cannula 4 09/30/16 14:15 112 17 144/84 93 Nasal Cannula 4 09/30/16 14:00 93 17 145/69 94 Nasal Cannula 4 09/30/16 13:45 129 15 163/67 90 Nasal Cannula 4 09/30/16 13:35 76 15 92 Nasal Cannula 4 09/30/16 13:26 149 15 158/67 92 Nasal Cannula 4 09/30/16 13:15 77 16 118/64 91 Nasal Cannula 4 09/30/16 13:00 76 16 119/59 91 Nasal Cannula 4 09/30/16 12:45 77 16 113/56 93 Nasal Cannula 4 09/30/16 12:37 84 15 113/56 90 Simple Mask 6 09/30/16 12:20 97.2 90 16 121/58 93 Simple Mask 8 Result Diagram: 10/01/1651610/01/16518 Objective Remarks Scrotum: erythema/painful to touch Scrotum elevated with towel placed underneath Esc[place] with some sediment in urine 09/28 Scrotum: erythema improving; still with swelling Scrotum elevated with towel placed underneath [place] with some sediment in urine 09/29 Scrotum: erythema improving; still with swelling; scrotal abcess on MRI Escamilla with sediment 10/01 Abd:soft,nt,nt. Scrotal wound: packing changed at bedside; Cellulitis improved. Swellling still present Escamilla with sediment Medications and IVs Current Medications Medications (Trade) Dose Ordered Sig/Lela Route Start Time Stop Time Status Last Admin (NS Flush) 2 ml BID IV FLUSH 09/25/16 21:00 10/01/16 09:33 Sodium Chloride 2 ml 2 ml UNSCH PRN IV FLUSH 09/25/16 17:00 Sodium Chloride 1,000 ml @ 125 mls/hr Q8H IV 09/25/16 17:00 Hold 09/29/16 14:30 (Vancomycin Consult Pharmacy) 0 ml @ 0 mls/hr UNSCH OTHER 09/25/16 17:00 (Baxter 5-325 Mg) 1 tab Q4H PRN PO 09/25/16 17:00 Enoxaparin Sodium 40 mg 40 mg Q24H SQ 09/25/16 18:00 Hold 09/28/16 18:29 (Zosyn 3.375 Gm Premix) 50 ml @ 100 mls/hr Q6H IV 09/25/16 22:00 10/01/16 09:34 (Morphine Inj) 4 mg Q3H PRN IV 09/25/16 17:15 10/01/16 10:00 (Narcan Inj) 0.4 mg UNSCH PRN IV 09/25/16 17:15 (Symbicort 80-4.5 Mcg Inh) 1 puff Q12HR INH 09/25/16 21:00 10/01/16 09:34 (Lyrica) 200 mg BID PO 09/25/16 21:00 09/30/16 21:00 (Flomax) 0.4 mg HS PO 09/25/16 21:00 09/30/16 21:00 (Prinivil) 2.5 mg DAILY PO 09/26/16 09:00 10/01/16 09:34 (Apresoline Inj) 10 mg Q6H PRN IV 09/25/16 21:00 Temazepam 15 mg 15 mg HS PRN PO 09/27/16 00:30 09/29/16 21:11 (Vancomycin Inj/ NS 500 ml Inj) 515 ml @ 250 mls/hr Q12H IV 09/28/16 18:00 Hold 09/30/16 06:07 (Baxter 10-325 Mg) 1 tab Q4H PRN PO 09/29/16 13:00 10/01/16 04:33 (Deltasone) 20 mg BID PO 10/01/16 09:00 10/01/16 09:34 Miscellaneous Information ALL NURSING DEPARTME... 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 coli UTI Continue IV abx Maintain escamilla for now MRI in AM to evaluate presence of fistula 09/29 61 y.o male with scrotal cellulitis and scrotal abcess on MRI For I&D in OR tomorrow 10/01 61 y.o male s/p I&D of scrotal abcess without evidence of urethral cutaneous fistula Continue IV ABX Continue Escamilla drainage; Void trial next week prior to discharge. Daily packing changes Left upper arm US today for swelling. Juan Ramon Herrera DO Oct 01, 2016 10:44
[2016-10-01] MEDS: PREGABALIN 100 MG CAP PO SCH ×2 (10:52→20:55)
--- NOTE | 2016-10-01 12:09 | HHI.FPPN ---
Subjective Remarks Pt seen and examined this morning. Critical care was consulted due to severe bronchospasm and a. fib with RVR. Pulse this morning ranging from 65-71. Pt reports feeling well this morning. His breathing has improved and is stable. He denies chest pain, abdominal pain. His grain area is painful and swollen from I& D yesterday. He has no other acute concerns. (Shayy Alexis MD R2) Objective Vitals Vital Signs Date Time Temp Pulse Resp B/P Pulse Ox O2 Delivery O2 Flow Rate FiO2 10/01/16 10:07 96 Nasal Cannula 4.00 10/01/16 10:05 20 10/01/16 10:00 69 10/01/16 08:00 60 10/01/16 07:00 95 Nasal Cannula 3.00 21 10/01/16 06:00 71 10/01/16 04:00 97.7 65 12 108/58 94 10/01/16 04:00 65 10/01/16 02:00 76 10/01/16 00:00 81 10/01/16 00:00 98.7 81 34 126/56 91 09/30/16 22:52 95 Nasal Cannula 4.00 09/30/16 22:15 80 09/30/16 22:15 98.5 92 22 129/62 92 09/30/16 22:15 92 Nasal Cannula 3.00 09/30/16 20:00 98.2 89 20 136/64 95 Nasal Cannula 3 09/30/16 19:30 88 24 126/61 94 Nasal Cannula 3 09/30/16 19:00 97.8 96 18 128/63 94 Nasal Cannula 4 09/30/16 18:00 96 18 124/63 94 Nasal Cannula 4 09/30/16 17:30 82 18 107/55 93 Nasal Cannula 4 09/30/16 17:00 86 20 108/59 93 Nasal Cannula 4 09/30/16 16:45 97.9 91 19 126/56 94 Nasal Cannula 4 09/30/16 16:00 91 19 126/56 94 Nasal Cannula 4 09/30/16 15:45 91 19 117/56 94 Nasal Cannula 4 09/30/16 15:30 88 17 117/57 94 Nasal Cannula 4 09/30/16 15:15 108 17 142/67 93 Nasal Cannula 4 09/30/16 15:00 103 17 142/67 93 Nasal Cannula 4 09/30/16 14:30 96 17 93 Nasal Cannula 4 09/30/16 14:15 112 17 144/84 93 Nasal Cannula 4 09/30/16 14:00 93 17 145/69 94 Nasal Cannula 4 09/30/16 13:45 129 15 163/67 90 Nasal Cannula 4 09/30/16 13:35 76 15 92 Nasal Cannula 4 09/30/16 13:26 149 15 158/67 92 Nasal Cannula 4 09/30/16 13:15 77 16 118/64 91 Nasal Cannula 4 09/30/16 13:00 76 16 119/59 91 Nasal Cannula 4 09/30/16 12:45 77 16 113/56 93 Nasal Cannula 4 09/30/16 12:37 84 15 113/56 90 Simple Mask 6 09/30/16 12:20 97.2 90 16 121/58 93 Simple Mask 8 I/O 09/30/16 09/30/16 09/30/16 10/01/16 10/01/16 10/01/16 07:00 15:00 23:00 07:00 15:00 23:00 Intake Total 758 ml 1000 ml 2033 ml 588 ml Output Total 900 ml 1510 ml 780 ml 375 ml Balance -142 ml -510 ml 1253 ml 213 ml Intake Oral 1121 ml 480 ml IV Total 758 ml 912 ml 108 ml Other 1000 ml Output Urine Total 900 ml 1500 ml 780 ml 375 ml Estimated Blood Loss 10 ml # Bowel Movements 1 (Shayy Alexis MD R2) Result Diagram: 10/01/1617 10/01/16 05 Objective Remarks GENERAL: Well-nourished, well-developed patient. No acute distress. SKIN: Warm and dry. No rash. EYES: No scleral icterus. No injection or drainage. PERRLA. EOMI. HENT: Normocephalic. Atraumatic. MMM. NECK: No visible JVD or lymphadenopathy. CARDIOVASCULAR: Regular rate and rhythm RESPIRATORY: Diffuse expiratory wheezing, mild bibasilar crackles. GASTROINTESTINAL: Abdomen non tender, soft, mildly distended, +BS. : Scrotum and shaft of penis are erythematous and edematous, wound dressing over right testis c/d/i. Scrotum and penis diffusely tender to light touch. NEURO/PSYCH: Afocal. Awake, alert, and oriented x3. (Shayy Alexis MD R2) A/P Assessment and Plan 51-year-old male with history of diabetes and COPD presents with penile and testicle swelling after I&D. Failed outpatient antibiotics. Admitted for IV antibiotics and consultation to urologist. Critical care consulted due to bronchospasm, atrophic fibrillation with RVR. Discharge Planning Time frame unclear. Pending improvement of infection and urology recommendations. (Shayy Alexis MD R2) Attending Attestation Patient seen and examined. Case reviewed and discussed with the resident team. Agree with plan of care as discussed with me and documented in the resident note. (Jim Montalvo MD) Problem List: (1) Cellulitis of scrotum Status: Acute Plan: Patient presented with swelling and redness of penis and scrotal area. I& D performed on 09/02, again on 09/30 due to scrotal abscess. Concern for Aaron' s gangrene, but ultrasound and CT negative. Mild leukocytosis on admission and normal CRP. Was on Bactrim outpatient. -Continue Vancomycin q12H, pharmacy consult -Continue Zosyn 3.375g q6h -Urology consult-appreciate recs -Pt known to Dr. Herrera -MRI pelvis completed, s/p I&D 09/30 -Blood culture no growth to date Imagin09/27/2016 Pelvis MRI: 1.91.21.0 cm subcutaneous enhancing fluid collection consistent with subcutaneous abscess within the right scrotum. This appears to be communicating with the skin surface. Scrotal US: unremarkable, benign calcification on left testicle Pelvis CT: Air in bladder, scrotal wall thickening (2) Atrial fibrillation with RVR Status: Acute Plan: Patient with new onset atrial fibrillation with RVR. On exam pt with regular rhythm, rate controlled -Patient started on a Cardizem drip, consider transitioning to PO -Continue to monitor (3) Diabetes Status: Acute Plan: History of chronic diabetes on insulin. Patient is on Levemir 24 units twice a day and Humalog sliding scale 3 times a day. -Levemir 24 units BID, pt is now on steroids which will impact blood sugar. -Sliding scale insulin -Monitor blood glucose levels -May need to adjust long-acting insulin pending glucose levels (4) UTI (urinary tract infection) Status: Acute Plan: Urine culture Escherichia coli Antibiotics as above See fluids below (5) COPD (chronic obstructive pulmonary disease) Status: Chronic Plan: History of chronic COPD, on nebulizer, Symbicort, and 2 L of oxygen at home. Breathing stable -Continue Symbicort -DuoNeb's every 4 hours -Albuterol PRN -Prednisone 40 mg po 1 09/30 -Prednisone 20 mg po BID starting on 10/01 -Continue to monitor, consider increasing steroids if needed (6) Hypertension Status: Chronic Plan: History of hypertension. -Continue home lisinopril -Hydralazine PRN (7) Tobacco abuse Status: Chronic Plan: Pt smoking 1 PPD, not interested in quitting at this time -Counseled on risks of smoking and benefits of quitting (8) FEN Status: Acute Plan: Fluids: We'll hold fluids due to concern for fluid overload Electrolytes: wnl, continue to monitor Nutrition: Diabetic diet DVT ppx: Lovenox to be resumed after procedure. (Shayy Alexis MD R2) Problem Qualifiers (1) Diabetes: Qualified Code: E11.59 - Type 2 diabetes mellitus with other circulatory complication, with long-term current use of insulin (2) UTI (urinary tract infection): Qualified Code: N30.00 - Acute cystitis without hematuria (3) COPD (chronic obstructive pulmonary disease): Qualified Code: J44.9 - Chronic obstructive pulmonary disease, unspecified COPD type (4) Hypertension: Qualified Code: I10 - Essential hypertension Shayy Alexis MD R2 Oct 01, 2016 12:09 Jim Montalvo MD Oct 01, 2016 16:04
[2016-10-01] MEDS ORDERED: VANCOMYCIN INJ 1,250 MG in SODIUM CHLOR 0.9% 250 ML INJ 250 ML IV ONE (14:00)
[2016-10-01] MEDS: ENOXAPARIN SODIUM 40 MG/0.4 ML SYRINGE SQ SCH (18:13)
[2016-10-01 18:34] LABS: BICARBONATE 23.3 MEQ/L (21.0-32.0); POTASSIUM 4.3 MEQ/L (3.5-5.1)
--- NOTE | 2016-10-01 20:51 | MB ---
cc: JON STRAUSS MD DATE OF CONSULTATION 10/01/16 REASON FOR CONSULTATION Elevated BUN and creatinine. HISTORY OF PRESENT ILLNESS A 61-year-old male with past medical history of diabetes mellitus, hypertension, chronic obstructive pulmonary disease, peripheral vascular disease, admitted with scrotal swelling and pain. I was called to see the patient because of elevated BUN and creatinine. The patient has creatinine of 1.0-0.8 on admission and for last 2 days it started going up and now is 2.1. The patient denies any known history of renal disease. He was seen by the urology and initially diagnosed with scrotal abscess and underwent surgery yesterday with a retrograde urethrogram, cystoscopy and I&D of the scrotal abscess. The patient has been getting vancomycin and now he is on Zosyn. Blood pressure has been stable with no documented significant hypotensive episodes. He also remained afebrile. The last dose of vancomycin was given yesterday morning. There is no nausea or vomiting but he has decreased appetite. He has constipation and has no bowel movement for the last 2 days and complaining of abdominal distension. Currently, he has a Broderick catheter and has been nonoliguric and passing urine. PAST MEDICAL HISTORY Hypertension, diabetes mellitus, peripheral vascular disease, chronic obstructive pulmonary disease. PAST SURGICAL HISTORY History of TURP. Suprapubic catheter placement and removal. History of perianal abscess. I&D of scrotal abscess was done last month and again yesterday with cystoscopy. REVIEW OF SYSTEMS The patient has generalized weakness, feeling tired. No shortness of breath or chest pain. No palpitation. He has decreased appetite, occasional nausea. There is no vomiting. No diarrhea. He has constipation and complaining of abdominal distention. His scrotal pain is much better after the surgery. SOCIAL HISTORY He has past history of smoking. Occasionally drinks alcoholic beverages. FAMILY HISTORY Noncontributory. ALLERGIES ALLERGIC TO ASPIRIN, GABAPENTIN, LANATUS. MEDICATIONS Currently on the following medications: 1. Lyrica 200 milligrams b.i.d. 2. Prednisone 20 milligrams b.i.d. 3. Levemir 24 units b.i.d. 4. Lisinopril 2.5 milligrams once a day. 5. Flomax 0.4 milligrams q. h.s. 6. Symbicort inhaler. 7. Lovenox 40 milligrams subcu q. 24 hours. 8. Zosyn 3.375 grams IV q. 6-hours. 9. Insulin aspart sliding scale. 10. Diltiazem as needed. 11. Morphine as needed. PHYSICAL EXAMINATION GENERAL: on examination the patient is awake, alert. He is not in acute distress. VITAL SIGNS: His last blood pressure 142/73, temperature 97.8, oxygen saturation 98%. HEENT: Pupils equally reacting to light. Nonicteric sclera, conjunctiva pale. NECK: Supple. JVD is not elevated. LUNGS: The patient has bilateral good air entry with occasional wheezing. HEART: S1-S2. Regular rhythm. ABDOMEN: Abdomen is distended, soft lax. There is no definite tenderness. Bowel sounds positive. EXTREMITIES: He has mild edema in the legs. INVESTIGATION WBC count is 12.2, hemoglobin 10.5, platelet count 180, neutrophils 84.2%, sodium 138, potassium 4.3, chloride 106, bicarb 23.3, BUN 33, creatinine 2.1, INR 0.9. Urinalysis showing protein of 100, rare eosinophils, urine sodium is 44, creatinine 74.5 and osmolality is 342. Toxicology showing vancomycin level highest was 22 yesterday morning. IMAGING STUDIES The patient has pelvic CT scan done with IV contrast on and shows air in the bladder, scrotal wall thickening, low lying right kidney. ASSESSMENT/PLAN 1. Acute kidney injury. 2. History of scrotal abscess. 3. Hypertension. 4. Urinary tract infection. 5. History of COPD. The patient has been nonoliguric. The creatinine is ___ slightly better. He has urine eosinophils positive. Etiology of acute kidney injury is most likely related to acute interstitial nephritis or possibility of acute tubular necrosis. Could be related to either infection or the drugs, especially the vancomycin. Now he is off vancomycin and getting Zosyn. Follow the urine output and get ultrasound of the kidneys and avoid any nephrotoxins and follow the urine output and the BUN and creatinine. Thank you for the consultation. Dr. Doss will follow the patient over the weekend. MD OLEG Murrell/AMAURY /7:43 PM /8:26 PM
[2016-10-01] MEDS: TAMSULOSIN HCL 0.4 MG CAP PO SCH (20:55)
--- NOTE | 2016-10-01 23:00 | ECHRPT ---
Indication: SOB, PLEURAL EFFUSIONS CONCLUSIONS Normal left ventricular size. Wall thickness is normal. The left ventricular systolic function is moderately reduced with an estimated ejection fraction in the range of 40-45%. Mild mitral valve regurgitation. Mitral annular calcification is present. The estimated pulmonary arterial pressure is 32 mmHg. No pleural effusion. BP: / HR: Rhythm: Technical Quality:Technically difficult study FINDINGS LEFT VENTRICLE Normal left ventricular size. Wall thickness is normal. The left ventricular systolic function is moderately reduced with an estimated ejection fraction in the range of 40-45%. RIGHT VENTRICLE Normal right ventricular size and systolic function. LEFT ATRIUM The left atrial size is normal. RIGHT ATRIUM The right atrial size is normal. ATRIAL SEPTUM Normal atrial septal thickness without atrial level shunting by limited color doppler interrogation. AORTA The aortic root and proximal ascending aorta are normal in size on limited imaging. MITRAL VALVE Mild mitral valve regurgitation. Mitral annular calcification is present. AORTIC VALVE Trileaflet aortic valve. No aortic valve stenosis or regurgitation. TRICUSPID VALVE The estimated pulmonary arterial pressure is 32 mmHg. PULMONARY VALVE The pulmonary valve is not well visualized. VESSELS The inferior vena cava is normal in size. PERICARDIUM No pericardial effusion. No pleural effusion. Harley Costa MD (Electronically Signed) Final Date:01 October 2016 22:59
--- NOTE | 2016-10-01 23:25 | RADRPT ---
EXAM DATE/TIME: 10/01/2016 22:48 [facility] COMPARISON: No previous studies available for comparison. INDICATIONS : Increased lab values. MEDICAL HISTORY : Hypercholesterolemia. Gastroesophageal reflux disease. Chronic obstructive pulmonary disease. Cerebro vascular accident. Hypertension. Ulcers. Heartburn. Kidney stones. Arthritis. Dysuria. Diabete s. Penile edema. SURGICAL HISTORY : Appendectomy. Left leg stent. ORIF right elbow. ENCOUNTER: Initial ACUITY: 1 day PAIN SCORE: 0/10 LOCATION: Bilateral flank MEASUREMENTS: RIGHT KIDNEY: 14.4 x 6.5 x 7.4 cm LEFT KIDNEY: 11.7 x 6.4 x 6.2 x cm FINDINGS: RIGHT KIDNEY: Renal cortex is normal in thickness and echotexture. No hydronephrosis, stone, or mass. LEFT KIDNEY: Renal cortex is normal in thickness and echotexture. No hydronephrosis, stone, or mass. BLADDER: Within normal limits given the degree of distension and a Broderick catheter in place. CONCLUSION: Normal examination. Errol Ellison MD on October 01, 2016 at 23:23 Board Certified Radiologist. This report was verified electronically.
[2016-10-02] VITALS (14 sets, daily range): BP systolic 132–179; BP diastolic 66–88; PULSE 53–104; RESP 13–39; TEMP 96.7–98.7; O2SAT 91–100
[2016-10-02] MEDS: MORPHINE SULFATE 4 MG/ML INJ IV PRN (00:06)
[2016-10-02] MEDS: PIPERACIL-TAZO 3.375 GM PREMIX 50 ML IV SCH ×4 (03:51→21:23)
[2016-10-02] MEDS ORDERED: [UNRECOGNIZED DRUG - OTHER] ONE (06:00)
[2016-10-02] MEDS: INSULIN ASPART SUPPLEMENTAL SCALE SQ SCH ×4 (06:02→21:21)
[2016-10-02 06:07] LABS: AUTOMATED NEUTROPHIL # 10.2 TH/MM3 (1.8-7.7); BASOPHIL % 0.1 % (0.0-2.0); EOSINOPHIL % 0.1 % (0.0-4.0); HEMATOCRIT 33.3 % (39.0-51.0); HEMO FLAGS DIFF FINAL; LYMPH % 6.8 % (9.0-44.0); LYMPHOCYTE # 0.8 TH/MM3 (1.0-4.8); MEAN CELL VOLUME 84.1 FL (80.0-100.0); MEAN CORPUSCULAR HEMOGLOBIN 27.5 PG (27.0-34.0); MEAN CORPUSCULAR HGB CONC 32.7 % (32.0-36.0); MONO % 4.2 % (0.0-8.0); NEUT % 88.8 % (16.0-70.0); PLATELET COUNT 182 TH/MM3 (150-450); RED BLOOD COUNT 3.96 MIL/MM3 (4.50-5.90); RED CELL DISTRIBUTION WIDTH 14.8 % (11.6-17.2); WHITE BLOOD COUNT 11.4 TH/MM3 (4.0-11.0)
[2016-10-02 06:13] LABS: BICARBONATE 22.7 MEQ/L (21.0-32.0); POTASSIUM 4.9 MEQ/L (3.5-5.1)
[2016-10-02] MEDS: BUDESONIDE-FORMOTEROL 80/4.5 MCG INHALER INH SCH ×2 (09:16→21:23)
[2016-10-02] MEDS: PREGABALIN 100 MG CAP PO SCH ×2 (09:17→21:23)
[2016-10-02] MEDS: SODIUM CHLORIDE 0.9% FLUSH 10 ML FLUSH IV FLUSH SCH ×2 (09:17→21:00)
[2016-10-02] MEDS: predniSONE 20 MG TAB PO SCH (09:17)
[2016-10-02] MEDS: LISINOPRIL 5 MG TAB PO SCH (09:18)
[2016-10-02] MEDS: INSULIN DETEMIR 100 UNITS/ML VIAL SQ SCH ×2 (09:19→21:22)
--- NOTE | 2016-10-02 10:14 | HHI.CCPN ---
Subjective Remarks/Hospital Course 61 y/o patient with poorly controlled diabetes and longstanding COPD presents with recurrent testicular abscess, care of whom is complicated by a schizo- affective disorder. Now in PACU with severe bronchospasm and paroxysmal atrial fibrillation associated with rapid ventricular response. Incomplete bundle branch pathology and wheezing complicates choices for rate control. Ideally, we' d keep him in sinus rhythm. 10/01: CXR with effusions, moderately elevated BNP, rising creatinine. Suspect there is an overload or CHF component to his respiratory distress (in addition to his obvious COPD). Heart rate control improved. 10/02: NSR 50s. Still SOB. Discussed in detail with primary team. Looking for the least worst option for rate arrhythmia control and improvement of bronchospasm. ECHO 40-45% EF not surprising in light of radiographic findings ( effusions). Objective Vital Signs Date Time Temp Pulse Resp B/P Pulse Ox O2 Delivery O2 Flow Rate FiO2 10/02/16 08:14 96 Nasal Cannula 4.00 10/02/16 06:00 53 10/02/16 04:00 97.7 15 132/66 10/01/16 19:00 21 Intake and Output 10/01/16 10/01/16 10/02/16 08:00 16:00 00:00 Intake Total 588 ml 380 ml 1132 ml Output Total 375 ml 850 ml 875 ml Balance 213 ml -470 ml 257 ml Result Diagram: 10/02/16 0435 10/02/16 0435 Objective Remarks P 53, BP 114/78, R 18 mildly labored Head: Blue nose, chronic Neck: Supple, airway widely patent, transmitted wheezes. Lungs: Continued light wheezes, prolonged expiratory phase. Heart: Distant tone, freq PMB. No JVD. Abdomen: Round, soft, no guarding. Extremities: Warm, well perfused. No edema. Neuro: Talkative. Moves 4 limbs to command. DAVID, EOMs intact. A/P Problem List: (1) COPD with exacerbation ICD Code: J44.1 Status: Acute (2) Paroxysmal atrial fibrillation with RVR ICD Code: I48.0 Status: Acute (3) Diabetes type 2, uncontrolled ICD Code: E11.65 Status: Acute Assessment and Plan Plan: 1. Bronchodilators. 2. Steroids. 3. Increased insulin coverage, consider BID levemir. 4. Cardizem bolus and gtt. 5. Hold full anticoagulation - not necessary. 6. DVT prophylaxis with lovenox if OK with urology service. 7. Chemical GI prophylaxis. 8. Hydration. 9. BiPAP prn Overall impression: Primary team will try increased steroids, agree. Fortunately renal function is improving. Follow BNP, weight closely. Trying to separate primary COPD from systolic heart failure as the etiology of bronchospasm can be difficult. In this case I suspect both pathologies are operative. Problem Qualifiers (1) Diabetes type 2, uncontrolled: Spencer Quinones MD Oct 02, 2016 10:14
--- NOTE | 2016-10-02 11:52 | HHI.FPPN ---
Subjective Remarks Patient seen and examined this morning. No acute events overnight. Patient has been off of Cardizem drip for approximately 12 hours. Heart rate has been in the 50s this morning. He reports occasionally feeling as if his heart is racing. He endorses feeling short of breath, worse with exertion. His breathing is stable from yesterday. He denies any abdominal pain, constipation , diarrhea, significant lower extremity swelling. Pain and swelling in his groin area is stable. Objective Vitals Vital Signs Date Time Temp Pulse Resp B/P Pulse Ox O2 Delivery O2 Flow Rate FiO2 10/02/16 10:17 22 10/02/16 08:14 96 Nasal Cannula 4.00 10/02/16 08:00 98.7 58 28 143/67 97 10/02/16 07:00 100 Nasal Cannula 3.00 10/02/16 06:00 53 10/02/16 04:00 54 10/02/16 04:00 97.7 54 15 132/66 95 10/02/16 02:00 58 10/02/16 00:00 64 10/02/16 00:00 97.9 64 13 139/73 91 10/01/16 22:00 65 10/01/16 20:00 97.5 70 21 146/85 95 10/01/16 20:00 83 10/01/16 19:00 94 Nasal Cannula 3.00 21 10/01/16 18:00 82 10/01/16 16:00 97.8 56 12 142/73 98 10/01/16 16:00 62 10/01/16 14:00 59 10/01/16 12:00 61 10/01/16 12:00 97.8 60 20 115/64 98 10/01/16 11:51 22 I/O 10/01/16 10/01/16 10/01/16 10/02/16 10/02/16 10/02/16 07:00 15:00 23:00 07:00 15:00 23:00 Intake Total 588 ml 380 ml 1132 ml 74 ml Output Total 375 ml 850 ml 875 ml 1150 ml Balance 213 ml -470 ml 257 ml -1076 ml Intake Oral 480 ml 240 ml 960 ml 0 ml IV Total 108 ml 140 ml 172 ml 74 ml Output Urine Total 375 ml 850 ml 875 ml 1150 ml # Bowel Movements 1 1 1 Result Diagram: 10/02/1643410/02/16434 Objective Remarks GENERAL: Well-nourished, well-developed patient. No acute distress. SKIN: Warm and dry. No rash. EYES: No scleral icterus. No injection or drainage. PERRLA. EOMI. HENT: Normocephalic. Atraumatic. MMM. NECK: No visible JVD or lymphadenopathy. CARDIOVASCULAR: Regular rate and rhythm RESPIRATORY: Diffuse expiratory wheezing, mild bibasilar crackles. GASTROINTESTINAL: Abdomen non tender, soft, mildly distended, +BS. : Scrotum and shaft of penis are erythematous and edematous, wound dressing over lower right testis c/d/i. Scrotum and penis diffusely tender to light touch. NEURO/PSYCH: Afocal. Awake, alert, and oriented x3. A/P Assessment and Plan 51-year-old male with history of diabetes and COPD presents with penile and testicle swelling after I&D. Failed outpatient antibiotics. Admitted for IV antibiotics and consultation to urologist. Critical care consulted due to bronchospasm, atrophic fibrillation with RVR. Discharge Planning Time frame unclear. Pending improvement of infection and urology recommendations. Case discussed with Dr. Joni HOUSER with Dr. Montalvo Problem List: (1) Cellulitis of scrotum Status: Acute Plan: Patient presented with swelling and redness of penis and scrotal area. Imaging was significant for an abscess. I&D performed on 09/02, again on 09/30 due to persistent scrotal abscess. Concern for Aaron's gangrene, but ultrasound and CT negative. Mild leukocytosis on admission and normal CRP. Was on Bactrim outpatient. -Continue Vancomycin q12H, pharmacy consult- Currently on hold by pharmacy -Continue Zosyn 3.375g q6h -Urology consulted -appreciate recs -Pt known to Dr. Herrera -MRI pelvis completed, s/p I&D 09/30 -Blood culture no growth to date Imagin09/27/2016 Pelvis MRI: 1.91.21.0 cm subcutaneous enhancing fluid collection consistent with subcutaneous abscess within the right scrotum. This appears to be communicating with the skin surface. Scrotal US: unremarkable, benign calcification on left testicle Pelvis CT: Air in bladder, scrotal wall thickening (2) Atrial fibrillation with RVR Status: Acute Plan: Patient with new onset atrial fibrillation with RVR. On exam pt with regular rhythm, rate controlled -Heart rate currently controlled, patient in sinus rhythm -Consider oral Cardizem if needed -Continue to monitor (3) Diabetes Status: Acute Plan: History of chronic diabetes on insulin. Patient is on Levemir 24 units twice a day and Humalog sliding scale 3 times a day. -Levemir 24 units BID, pt is now on IV steroids which will impact blood sugar. -Low dose sliding scale insulin -Monitor blood glucose levels -May need to adjust long-acting insulin pending glucose levels (4) HAYLEY (acute kidney injury) Status: Acute Plan: Creatinine 1.99 decreased from 2.14 on 10/01. Downtrending. Nephrology consulted, appreciate recommendations. Renal ultrasound normal Avoid nephrotoxic medications and renally dose medications as indicated (5) UTI (urinary tract infection) Status: Acute Plan: Urine culture Escherichia coli Antibiotics as above See fluids below (6) COPD (chronic obstructive pulmonary disease) Status: Chronic Plan: History of chronic COPD, on nebulizer, Symbicort. Shortness of breath also likely exacerbated by CHF. Patient endorses feeling short of breath -We'll start IV steroids: IV Methylprednisolone 60 mg Q6hr -Continue Symbicort -DuoNeb's every 4 hours -Albuterol PRN -Continue to monitor (7) Hypertension Status: Chronic Plan: History of hypertension. -Continue home lisinopril -Hydralazine PRN (8) Tobacco abuse Status: Chronic Plan: Pt smoking 1 PPD, not interested in quitting at this time -Counseled on risks of smoking and benefits of quitting (9) FEN Status: Acute Plan: Fluids: We'll hold fluids due to concern for fluid overload Electrolytes: wnl, continue to monitor Nutrition: Diabetic diet DVT ppx: Lovenox to be resumed after procedure. Problem Qualifiers (1) Diabetes: Qualified Code: E11.59 - Type 2 diabetes mellitus with other circulatory complication, with long-term current use of insulin (2) UTI (urinary tract infection): Qualified Code: N30.00 - Acute cystitis without hematuria (3) COPD (chronic obstructive pulmonary disease): Qualified Code: J44.9 - Chronic obstructive pulmonary disease, unspecified COPD type (4) Hypertension: Qualified Code: I10 - Essential hypertension Shayy Alexis MD R2 Oct 02, 2016 11:52
[2016-10-02] MEDS: methylPREDNISolone SOD SUCC 125 MG/2 ML VIAL IVP SCH ×2 (11:59→18:25)
[2016-10-02] MEDS: ACETAMINOPHEN/HYDROcodone 325 MG/10 MG TAB PO PRN ×2 (13:33→17:00)
[2016-10-02] MEDS ORDERED: VANCOMYCIN 1,500 MG/NS 500 ML IV ONE ×2 (14:00)
--- NOTE | 2016-10-02 15:57 | HHI.NPPN ---
Subjective History of Present Illness 61 year old with Diabetes, ARF, Afib, groin infection Review of Systems General Constitutional: Fatigue Objective Data Data 10/01/16 10/02/16 18:59 06:59 Intake Total 380 ml 1206 ml Output Total 850 ml 2025 ml Balance -470 ml -819 ml Intake Oral 240 ml 960 ml IV Total 140 ml 246 ml Output Urine Total 850 ml 2025 ml # Bowel Movements 1 2 Vital Signs Date Time Temp Pulse Resp B/P Pulse Ox O2 Delivery O2 Flow Rate FiO2 10/02/16 14:00 63 10/02/16 12:00 62 10/02/16 12:00 97.7 59 15 154/88 96 10/02/16 10:17 22 10/02/16 10:00 62 10/02/16 08:14 96 Nasal Cannula 4.00 10/02/16 08:00 62 10/02/16 08:00 98.7 58 28 143/67 97 10/02/16 07:00 100 Nasal Cannula 3.00 10/02/16 06:00 53 10/02/16 04:00 54 10/02/16 04:00 97.7 54 15 132/66 95 10/02/16 02:00 58 10/02/16 00:00 64 10/02/16 00:00 97.9 64 13 139/73 91 10/01/16 22:00 65 10/01/16 20:00 97.5 70 21 146/85 95 10/01/16 20:00 83 10/01/16 19:00 94 Nasal Cannula 3.00 21 10/01/16 18:00 82 10/01/16 16:00 97.8 56 12 142/73 98 10/01/16 16:00 62 -: 10/02/16 0435 10/02/16 0435 Physical Exam General Appearance: Well Developed, Well Nourished Neck Neck Exam: Neck Supple Pulmonary Resp Exam: Clear Bilaterally, Breath Sounds Equal Cardiology CV Exam: Regular, Normal Sinus Rhythm Gastrointestinal/Abdomen GI Exam: Soft, Non-Tender, Bowel Sounds Present Extremeties Extremities Exam: No Edema Assessment/Plan Problem List: (1) Acute renal failure Plan: cr declined to 1.[address] Charles to follow on Tuesday (2) Diabetes type 2, uncontrolled Plan: stable (3) UTI (urinary tract infection) Plan: E coli on Zosyn (4) Cellulitis of scrotum Plan: urology following on Vanco Problem Qualifiers (1) Diabetes type 2, uncontrolled: (2) UTI (urinary tract infection): Qualified Code: N30.00 - Acute cystitis without hematuria Livia Doss MD Oct 02, 2016 15:57
[2016-10-02 17:09] LABS: BICARBONATE 23.8 MEQ/L (21.0-32.0); POTASSIUM 4.9 MEQ/L (3.5-5.1)
[2016-10-02] MEDS: ENOXAPARIN SODIUM 40 MG/0.4 ML SYRINGE SQ SCH (18:26)
[2016-10-02] MEDS: TAMSULOSIN HCL 0.4 MG CAP PO SCH (21:23)
[2016-10-03] VITALS (12 sets, daily range): BP systolic 158–175; BP diastolic 74–79; PULSE 52–69; RESP 11–23; TEMP 97.5–98; O2SAT 94–97
[2016-10-03] MEDS: methylPREDNISolone SOD SUCC 125 MG/2 ML VIAL IVP SCH ×5 (00:06→23:34)
[2016-10-03] MEDS: ACETAMINOPHEN/HYDROcodone 325 MG/10 MG TAB PO PRN ×2 (01:58→08:35)
[2016-10-03] MEDS: PIPERACIL-TAZO 3.375 GM PREMIX 50 ML IV SCH ×4 (03:57→22:18)
[2016-10-03] MEDS: hydrALAZINE HCL 20 MG/ML VIAL IV PRN ×2 (03:57→11:28)
[2016-10-03] MEDS: MORPHINE SULFATE 4 MG/ML INJ IV PRN ×2 (04:03→10:22)
[2016-10-03 06:31] LABS: BASOPHIL % 0.1 % (0.0-2.0); HEMATOCRIT 36.7 % (39.0-51.0); HEMO FLAGS DIFF FINAL; LYMPH % 6.8 % (9.0-44.0); LYMPHOCYTE # 0.8 TH/MM3 (1.0-4.8); MEAN CELL VOLUME 84.3 FL (80.0-100.0); MEAN CORPUSCULAR HEMOGLOBIN 27.2 PG (27.0-34.0); MEAN CORPUSCULAR HGB CONC 32.2 % (32.0-36.0); MONO % 2.9 % (0.0-8.0); NEUT % 90.2 % (16.0-70.0); PLATELET COUNT 204 TH/MM3 (150-450); RED BLOOD COUNT 4.36 MIL/MM3 (4.50-5.90); RED CELL DISTRIBUTION WIDTH 14.3 % (11.6-17.2); WHITE BLOOD COUNT 12.2 TH/MM3 (4.0-11.0)
[2016-10-03] MEDS: INSULIN ASPART SUPPLEMENTAL SCALE SQ SCH ×4 (06:44→22:22)
[2016-10-03 06:59] LABS: BICARBONATE 22.4 MEQ/L (21.0-32.0); POTASSIUM 4.7 MEQ/L (3.5-5.1)
[2016-10-03] MEDS: PREGABALIN 100 MG CAP PO SCH ×2 (08:35→20:34)
[2016-10-03] MEDS: INSULIN DETEMIR 100 UNITS/ML VIAL SQ SCH ×2 (08:36→20:50)
[2016-10-03] MEDS: LISINOPRIL 5 MG TAB PO SCH (08:37)
[2016-10-03] MEDS: BUDESONIDE-FORMOTEROL 80/4.5 MCG INHALER INH SCH ×2 (08:49→20:32)
[2016-10-03] MEDS: SODIUM CHLORIDE 0.9% FLUSH 10 ML FLUSH IV FLUSH SCH ×2 (08:49→20:34)
--- NOTE | 2016-10-03 10:24 | HHI.CCPN ---
Subjective Remarks/Hospital Course 61 y/o patient with poorly controlled diabetes and longstanding COPD presents with recurrent testicular abscess, care of whom is complicated by a schizo- affective disorder. Now in PACU with severe bronchospasm and paroxysmal atrial fibrillation associated with rapid ventricular response. Incomplete bundle branch pathology and wheezing complicates choices for rate control. Ideally, we' d keep him in sinus rhythm. 10/01: CXR with effusions, moderately elevated BNP, rising creatinine. Suspect there is an overload or CHF component to his respiratory distress (in addition to his obvious COPD). Heart rate control improved. 10/02: NSR 50s. Still SOB. Discussed in detail with primary team. Looking for the least worst option for rate arrhythmia control and improvement of bronchospasm. ECHO 40-45% EF not surprising in light of radiographic findings ( effusions). 10/03: Remains in NSR. Well perfused. Breathing much more comfortably, probably from increased and IV steroids. Renal function stabilized - let's try a diuretic once and see how his renal function responds; he has bilateral effusions on his last CXR which are either from heart failure or SIRS. I suspect the former. Objective Vital Signs Date Time Temp Pulse Resp B/P Pulse Ox O2 Delivery O2 Flow Rate FiO2 10/03/16 08:21 94 Nasal Cannula 4.00 10/03/16 06:00 52 10/03/16 04:00 97.9 23 162/76 10/03/16 03:19 21 Intake and Output 10/02/16 10/02/16 10/02/16 07:59 15:59 23:59 Intake Total 74 ml 1530 ml 1495 ml Output Total 1150 ml 1100 ml 1550 ml Balance -1076 ml 430 ml -55 ml Result Diagram: 10/03/1651310/03/16513 Objective Remarks P 65, BP 134/78, R 16 non labored Head: Blue nose, chronic Neck: Supple, airway widely patent. Lungs: Clear, no wheezes, good bilateral air movement. Heart: Distant tone, freq PMB. No JVD. Abdomen: Round, soft, no guarding. BS active. Extremities: Warm, well perfused. No edema. Neuro: Talkative. I think he's oriented. Moves 4 limbs to command. DAVID, EOMs intact. A/P Problem List: (1) COPD with exacerbation ICD Code: J44.1 Status: Acute (2) Paroxysmal atrial fibrillation with RVR ICD Code: I48.0 Status: Acute (3) Diabetes type 2, uncontrolled ICD Code: E11.65 Status: Acute Assessment and Plan Plan: 1. Bronchodilators. 2. Steroids. 3. BID levemir. 4. d/c Cardizem 5. Hold full anticoagulation - not necessary. 6. DVT prophylaxis with lovenox if OK with urology service. 7. Chemical GI prophylaxis. 8. Hold IV fluid. 9. Lasix X 1. Overall impression: He responded nicely to increased steroids. Looks like the primary pathology was simple exacerbated COPD. Effusions remain worrisome - may be simple SIRS. Ideally, we'd try to reduce the effusions to prove he's not slipping into heart failure. Problem Qualifiers (1) Diabetes type 2, uncontrolled: Spencer Quinones MD Oct 03, 2016 10:24
[2016-10-03] MEDS ORDERED: FUROSEMIDE 20 MG/2 ML VIAL IV PUSH ONE (11:00)
--- NOTE | 2016-10-03 11:00 | RADRPT ---
EXAM DATE/TIME: 10/03/2016 10:10 [facility] COMPARISON: No previous studies available for comparison. INDICATIONS : Abdominal distention. MEDICAL HISTORY : Kidney stones. Gastroesophageal reflux disease. Hypertension. Ulcers. Dysuria. Diabetes. SURGICAL HISTORY : Appendectomy. ENCOUNTER: Initial ACUITY: 1 day PAIN SCORE: 0/10 LOCATION: Bilateral abdomen. FINDINGS: Moderate stool and gas is seen throughout the colon. There is no small bowel dilatation. There is n o free air. CONCLUSION: Moderate stool and bowel gas throughout the colon otherwise negative. Valentin Kendrick MD FACR on October 03, 2016 at 10:57 Board Certified Radiologist. This report was verified electronically.
[2016-10-03] MEDS: VANCOMYCIN 1,500 MG/NS 500 ML IV SCH ×2 (11:26)
--- NOTE | 2016-10-03 12:13 | HHI.FPPN ---
Subjective Remarks Patient seen and examined this morning. He states that he has had some intermittent sharp left sided chest pain, which does not radiate anywhere. It is typically present after he "takes his pills." He cannot touch it with his hand. No diaphoresis, additional pain in left arm or jaw, pain in back, additional difficulty breathing or shortness of breath. Patient also notes some additional distension in his abdomen. He states that his abdomen is typically distended, however it has increased in size since he has entered the hospital. He had a bowel movement which was soft, brown. He states that his breathing is currently improved from yesterday. No other complaints of nausea, vomiting, fever, chills, change in bowel habits, change in urinary habits. Objective Vitals Vital Signs Date Time Temp Pulse Resp B/P Pulse Ox O2 Delivery O2 Flow Rate FiO2 10/03/16 08:21 94 Nasal Cannula 4.00 10/03/16 06:00 52 10/03/16 04:00 97.9 60 23 162/76 97 10/03/16 04:00 60 10/03/16 03:19 95 21 10/03/16 02:00 56 10/03/16 00:00 56 10/03/16 00:00 97.6 56 11 160/74 97 10/02/16 22:00 63 10/02/16 21:00 96.7 74 17 179/86 96 10/02/16 20:00 54 10/02/16 19:00 84 Nasal Cannula 3.00 10/02/16 18:00 63 10/02/16 16:00 98.6 104 39 134/79 100 10/02/16 16:00 63 10/02/16 14:00 63 I/O 10/02/16 10/02/16 10/02/16 10/03/16 10/03/16 10/03/16 06:59 14:59 22:59 06:59 14:59 22:59 Intake Total 74 ml 1530 ml 1495 ml 591 ml Output Total 1150 ml 1100 ml 1550 ml 1650 ml Balance -1076 ml 430 ml -55 ml -1059 ml Intake Oral 0 ml 1380 ml 960 ml 480 ml IV Total 74 ml 150 ml 535 ml 111 ml Output Urine Total 1150 ml 1100 ml 1550 ml 1650 ml # Bowel Movements 1 2 1 Result Diagram: 10/03/1651310/03/16513 Objective Remarks GENERAL: Well-nourished, well-developed patient. No acute distress. SKIN: Warm and dry. No rash. EYES: No scleral icterus. No injection or drainage. PERRLA. EOMI. HENT: Normocephalic. Atraumatic. MMM. NECK: No visible JVD or lymphadenopathy. CARDIOVASCULAR: Regular rate and rhythm, normal S1/S2, No M/R/G RESPIRATORY: Expiratory wheezes at the bases, improved. Equal bilaterally. No crackles or rhonchi. GASTROINTESTINAL: Abdomen non tender, soft, mildly distended, +BS. : Scrotum and shaft of penis are erythematous and edematous, wound dressing over lower right testis c/d/i. Scrotum and penis diffusely tender to light touch. NEURO/PSYCH: Afocal. Awake, alert, and oriented x3. Medications and IVs Current Medications Medications (Trade) Dose Ordered Sig/Lela Route Start Time Stop Time Status Last Admin (NS Flush) 2 ml BID IV FLUSH 09/25/16 21:00 10/03/16 08:49 Sodium Chloride 2 ml 2 ml UNSCH PRN IV FLUSH 09/25/16 17:00 Sodium Chloride 1,000 ml @ 125 mls/hr Q8H IV 09/25/16 17:00 Hold 09/29/16 14:30 (Vancomycin Consult Pharmacy) 0 ml @ 0 mls/hr UNSCH OTHER 09/25/16 17:00 ([place] 5-325 Mg) 1 tab Q4H PRN PO 09/25/16 17:00 Enoxaparin Sodium 40 mg 40 mg Q24H SQ 09/25/16 18:00 10/02/16 18:26 (Zosyn 3.375 Gm Premix) 50 ml @ 100 mls/hr Q6H IV 09/25/16 22:00 10/03/16 11:28 (Morphine Inj) 4 mg Q3H PRN IV 09/25/16 17:15 10/03/16 10:22 (Narcan Inj) 0.4 mg UNSCH PRN IV 09/25/16 17:15 (Symbicort 80-4.5 Mcg Inh) 1 puff Q12HR INH 09/25/16 21:00 10/03/16 08:49 (Lyrica) 200 mg BID PO 09/25/16 21:00 10/03/16 08:35 (Flomax) 0.4 mg HS PO 09/25/16 21:00 10/02/16 21:23 (Prinivil) 2.5 mg DAILY PO 09/26/16 09:00 10/03/16 08:37 (Apresoline Inj) 10 mg Q6H PRN IV 09/25/16 21:00 10/03/16 11:28 (Restoril) 15 mg HS PRN PO 09/27/16 00:30 09/29/16 21:11 Acetaminophen/ Hydrocodone Bitart 1 tab 1 tab Q4H PRN PO 09/29/16 13:00 10/03/16 08:35 Diltiazem HCl 125 mg/Sodium Chloride 125 ml @ 0 mls/hr TITRATE IV 09/30/16 14:45 09/30/16 15:24 ([place] 20 Meq Premix Inj) 100 ml @ 50 mls/hr Q2H IV 09/30/16 17:00 09/30/16 20:59 Hold (Levemir Inj) 24 units BID SQ 10/01/16 09:00 10/03/16 08:36 (D50w (Vial) Inj) 50 ml UNSCH PRN IV 10/01/16 07:15 (Glucagon Inj) 1 mg UNSCH PRN OTHER 10/01/16 07:15 Methylprednisolone Sodium Succinate 60 mg 60 mg Q6H IVP 10/02/16 12:00 10/03/16 11:26 (Vancomycin Inj/ NS 500 ml Inj) 515 ml @ 257.5 mls/ hr Q24H IV 10/03/16 11:00 10/03/16 11:26 Miscellaneous Information SPECIFIC LAB TO BE [facility]... ONCE ONCE .XX 10/06/16 10:45 10/06/16 10:46 A/P Assessment and Plan 51-year-old male with history of diabetes and COPD presents with penile and testicle swelling after I&D. Failed outpatient antibiotics. Admitted for IV antibiotics and consultation to urologist. Critical care consulted due to bronchospasm, atrophic fibrillation with RVR. Discharge Planning Time frame unclear. Pending improvement of infection and urology recommendations. Case discussed with Dr. Joni HOUSER with Dr. Montalvo Problem List: (1) Cellulitis of scrotum Status: Acute Plan: Patient presented with swelling and redness of penis and scrotal area. Imaging was significant for an abscess. I&D performed on 09/02, again on 09/30 due to persistent scrotal abscess. Concern for Aaron's gangrene, but ultrasound and CT negative. Mild leukocytosis on admission and normal CRP. Was on Bactrim outpatient. -Continue Vancomycin q12H, pharmacy consult- Currently on hold by pharmacy -Continue Zosyn 3.375g q6h -Urology consulted -appreciate recs -Pt known to Dr. Herrera -MRI pelvis completed, s/p I&D 09/30 -Blood culture no growth to date Imagin09/27/2016 Pelvis MRI: 1.91.21.0 cm subcutaneous enhancing fluid collection consistent with subcutaneous abscess within the right scrotum. This appears to be communicating with the skin surface. Scrotal US: unremarkable, benign calcification on left testicle Pelvis CT: Air in bladder, scrotal wall thickening (2) Atrial fibrillation with RVR Status: Acute Plan: Patient with new onset atrial fibrillation with RVR. On exam pt with regular rhythm, rate controlled -Heart rate currently controlled, patient in sinus rhythm -Consider oral Cardizem if needed -Continue to monitor -F/U EKG today (3) Diabetes Status: Acute Plan: History of chronic diabetes on insulin. Patient is on Levemir 24 units twice a day and Humalog sliding scale 3 times a day. -Levemir 24 units BID, pt is now on IV steroids which will impact blood sugar. -Low dose sliding scale insulin -Monitor blood glucose levels -May need to adjust long-acting insulin pending glucose levels (4) HAYLEY (acute kidney injury) Status: Acute Plan: Creatinine 1.99 decreased from 2.14 on 10/01. Downtrending. Nephrology consulted, appreciate recommendations. Renal ultrasound normal Avoid nephrotoxic medications and renally dose medications as indicated (5) UTI (urinary tract infection) Status: Acute Plan: Urine culture Escherichia coli Antibiotics as above See fluids below (6) Abdominal distension Status: Acute Plan: Abdominal distension,typically present at home, but noted to be worse in hospital -Continue current bowel regimen -F/U abd XRay (7) COPD (chronic obstructive pulmonary disease) Status: Chronic Plan: History of chronic COPD, on nebulizer, Symbicort. Shortness of breath also likely exacerbated by CHF. Patient endorses feeling short of breath - IV Methylprednisolone 60 mg Q6hr -Continue Symbicort -DuoNeb's every 4 hours -Albuterol PRN -Continue to monitor (8) Hypertension Status: Chronic Plan: History of hypertension. -Continue home lisinopril -Hydralazine PRN (9) Tobacco abuse Status: Chronic Plan: Pt smoking 1 PPD, not interested in quitting at this time -Counseled on risks of smoking and benefits of quitting (10) FEN Status: Acute Plan: Fluids: We'll hold fluids due to concern for fluid overload Electrolytes: wnl, continue to monitor Nutrition: Diabetic diet DVT ppx: Lovenox to be resumed after procedure. Problem Qualifiers (1) Diabetes: Qualified Code: E11.59 - Type 2 diabetes mellitus with other circulatory complication, with long-term current use of insulin (2) UTI (urinary tract infection): Qualified Code: N30.00 - Acute cystitis without hematuria (3) COPD (chronic obstructive pulmonary disease): Qualified Code: J44.9 - Chronic obstructive pulmonary disease, unspecified COPD type (4) Hypertension: Qualified Code: I10 - Essential hypertension Ben Preciado MD R1 Oct 03, 2016 12:13
--- NOTE | 2016-10-03 16:00 | EKG ---
Date Performed: 10/03/2016 Time Performed: 09:52:20 PTAGE: 61 years EKG: Sinus arrhythmia and PACs rSr' - probable normal variant Compared to previous tracing, the run of supraventricular tachycardia is no longer present. Normal ECG PREVIOUS TRACING : 09/30/2016 13.48 DOCTOR: Mandeep Reyez Interpretating Date/Time 10/03/2016 15:58:59
[2016-10-03] MEDS: ENOXAPARIN SODIUM 40 MG/0.4 ML SYRINGE SQ SCH (17:41)
[2016-10-03] MEDS: ACETAMINOPHEN/HYDROcodone 325 MG/5 MG TAB PO PRN (17:45)
[2016-10-03] MEDS: TAMSULOSIN HCL 0.4 MG CAP PO SCH (20:34)
[2016-10-03 20:35] LABS: BICARBONATE 23.4 MEQ/L (21.0-32.0); POTASSIUM 4.4 MEQ/L (3.5-5.1)
[2016-10-04] VITALS (8 sets, daily range): BP systolic 144–170; BP diastolic 70–81; PULSE 54–73; RESP 15–21; TEMP 97.4–98.4; O2SAT 93–96
[2016-10-04] MEDS: ACETAMINOPHEN/HYDROcodone 325 MG/5 MG TAB PO PRN (02:47)
[2016-10-04] MEDS: PIPERACIL-TAZO 3.375 GM PREMIX 50 ML IV SCH ×4 (03:28→22:46)
[2016-10-04] MEDS: methylPREDNISolone SOD SUCC 125 MG/2 ML VIAL IVP SCH (05:26)
[2016-10-04] MEDS: INSULIN ASPART SUPPLEMENTAL SCALE SQ SCH ×4 (06:33→21:30)
--- NOTE | 2016-10-04 08:36 | HHI.PR ---
Subjective Patient symptoms today Pt seen and examined. Feeling better. No CP Objective Vital Signs Vital Signs Date Time Temp Pulse Resp B/P Pulse Ox O2 Delivery O2 Flow Rate FiO2 10/04/16 06:37 97.5 69 20 158/75 94 10/04/16 00:00 98.0 69 21 148/70 94 10/03/16 22:00 69 10/03/16 20:00 69 10/03/16 20:00 97.7 62 21 168/79 97 10/03/16 19:00 98 Nasal Cannula 3.00 10/03/16 18:18 65 10/03/16 17:05 97.5 59 18 173/79 97 10/03/16 12:00 97.7 57 19 158/78 95 Intake & Output 10/04/16 10/04/16 06:59 18:59 Intake Total 480 ml Output Total 1500 ml Balance -1020 ml Intake Oral 480 ml Output Urine Total 1500 ml # Bowel Movements 0 Result Diagram: 10/03/16 0514 10/03/161999 Objective Remarks Scrotum: erythema/painful to touch Scrotum elevated with towel placed underneath [place] with some sediment in urine 09/28 Scrotum: erythema improving; still with swelling Scrotum elevated with towel placed underneath [place] with some sediment in urine 09/29 Scrotum: erythema improving; still with swelling; scrotal abcess on MRI [place] with sediment 10/01 Abd:soft,nt,nt. Scrotal wound: packing changed at bedside; Cellulitis improved. Swellling still present [place] with sediment 10/04 Abd:soft,nt,nd Wound: some drainage noted. Packing in place : scrotal swelling with fungal rash present Medications and IVs Current Medications Medications (Trade) Dose Ordered Sig/Lela Route Start Time Stop Time Status Last Admin (NS Flush) 2 ml BID IV FLUSH 09/25/16 21:00 10/03/16 20:34 Sodium Chloride 2 ml 2 ml UNSCH PRN IV FLUSH 09/25/16 17:00 Sodium Chloride 1,000 ml @ 125 mls/hr Q8H IV 09/25/16 17:00 Hold 09/29/16 14:30 (Vancomycin Consult Pharmacy) 0 ml @ 0 mls/hr UNSCH OTHER 09/25/16 17:00 ([place] 5-325 Mg) 1 tab Q4H PRN PO 7/22/17 17:00 10/04/16 02:47 Enoxaparin Sodium 40 mg 40 mg Q24H SQ 09/25/16 18:00 10/03/16 17:41 (Zosyn 3.375 Gm Premix) 50 ml @ 100 mls/hr Q6H IV 09/25/16 22:00 10/04/16 03:28 (Morphine Inj) 4 mg Q3H PRN IV 09/25/16 17:15 10/03/16 10:22 (Narcan Inj) 0.4 mg UNSCH PRN IV 09/25/16 17:15 (Symbicort 80-4.5 Mcg Inh) 1 puff Q12HR INH 09/25/16 21:00 10/03/16 20:32 (Lyrica) 200 mg BID PO 09/25/16 21:00 10/03/16 20:34 (Flomax) 0.4 mg HS PO 09/25/16 21:00 10/03/16 20:34 (Prinivil) 2.5 mg DAILY PO 09/26/16 09:00 10/03/16 08:37 (Apresoline Inj) 10 mg Q6H PRN IV 09/25/16 21:00 10/03/16 11:28 (Restoril) 15 mg HS PRN PO 09/27/16 00:30 09/29/16 21:11 Acetaminophen/ Hydrocodone Bitart 1 tab 1 tab Q4H PRN PO 09/29/16 13:00 10/03/16 08:35 Diltiazem HCl 125 mg/Sodium Chloride 125 ml @ 0 mls/hr TITRATE IV 09/30/16 14:45 09/30/16 15:24 (KCl 20 Meq Premix Inj) 100 ml @ 50 mls/hr Q2H IV 09/30/16 17:00 09/30/16 20:59 Hold (Levemir Inj) 24 units BID SQ 10/01/16 09:00 10/03/16 20:50 (D50w (Vial) Inj) 50 ml UNSCH PRN IV 10/01/16 07:15 (Glucagon Inj) 1 mg UNSCH PRN OTHER 10/01/16 07:15 Methylprednisolone Sodium Succinate 60 mg 60 mg Q6H IVP 10/02/16 12:00 10/04/16 05:26 (Vancomycin Inj/ NS 500 ml Inj) 515 ml @ 257.5 mls/ hr Q24H IV 10/03/16 11:00 10/03/16 11:26 Miscellaneous Information SPECIFIC LAB TO BE ... 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 coli UTI Continue IV abx Maintain escamilla for now MRI in AM to evaluate presence of fistula 09/29 61 y.o male with scrotal cellulitis and scrotal abcess on MRI For I&D in OR tomorrow 10/01 61 y.o male s/p I&D of scrotal abcess without evidence of urethral cutaneous fistula Continue IV ABX Continue [place] drainage; Void trial next week prior to discharge. Daily packing changes Left upper arm US today for swelling. 10/04 61 y.o male s/p I&D of scrotal abcess without evidence of urethral cutaneous fistula Continue IV ABX Nystatin powder for fungal rash Daily Sitz baths with Epson Salts D/C in the next few days Juan Ramon Herrera DO Oct 04, 2016 08:35
[2016-10-04 08:39] LABS: HEMATOCRIT 37.8 % (39.0-51.0); MEAN CELL VOLUME 83.8 FL (80.0-100.0); MEAN CORPUSCULAR HEMOGLOBIN 27.1 PG (27.0-34.0); MEAN CORPUSCULAR HGB CONC 32.3 % (32.0-36.0); PLATELET COUNT 220 TH/MM3 (150-450); RED BLOOD COUNT 4.51 MIL/MM3 (4.50-5.90); RED CELL DISTRIBUTION WIDTH 14.5 % (11.6-17.2); REVIEW FLAG FINAL; WHITE BLOOD COUNT 11.9 TH/MM3 (4.0-11.0)
[2016-10-04] MEDS: INSULIN DETEMIR 100 UNITS/ML VIAL SQ SCH ×2 (09:00→21:29)
[2016-10-04] MEDS: NYSTATIN 100,000 U/GM PWD 15 GM BTL TOPICAL SCH ×2 (09:00→21:31)
[2016-10-04] MEDS: PREGABALIN 100 MG CAP PO SCH ×2 (09:00→21:27)
[2016-10-04] MEDS: SODIUM CHLORIDE 0.9% FLUSH 10 ML FLUSH IV FLUSH SCH ×2 (09:00→21:27)
[2016-10-04] MEDS: LISINOPRIL 5 MG TAB PO SCH (09:00)
[2016-10-04 09:03] LABS: BICARBONATE 23.1 MEQ/L (21.0-32.0); POTASSIUM 4.3 MEQ/L (3.5-5.1)
--- NOTE | 2016-10-04 09:12 | HHI.FPPN ---
Subjective Remarks Pt seen and examined this morning. No acute events overnight. Pt reports that his breathing is significantly improved. He denies chest pain, abdominal pain. He is having regular bowel movements. Pain in his groin area is stable. He reports swelling is improving. He has no other acute concerns. Objective Vitals Vital Signs Date Time Temp Pulse Resp B/P Pulse Ox O2 Delivery O2 Flow Rate FiO2 10/04/16 06:37 97.5 69 20 158/75 94 10/04/16 00:00 98.0 69 21 148/70 94 10/03/16 22:00 69 10/03/16 20:00 69 10/03/16 20:00 97.7 62 21 168/79 97 10/03/16 19:00 98 Nasal Cannula 3.00 10/03/16 18:18 65 10/03/16 17:05 97.5 59 18 173/79 97 10/03/16 12:00 97.7 57 19 158/78 95 I/O 10/03/16 10/03/16 10/03/16 10/04/16 10/04/16 10/04/16 06:59 14:59 22:59 06:59 14:59 22:59 Intake Total 591 ml 1135 ml 480 ml Output Total 1650 ml 2000 ml 2500 ml Balance -1059 ml -865 ml -2020 ml Intake Oral 480 ml 600 ml 480 ml IV Total 111 ml 535 ml Output Urine Total 1650 ml 2000 ml 2500 ml # Bowel Movements 0 Result Diagram: 10/04/16 0645 10/03/161999 Objective Remarks GENERAL: Well-nourished, well-developed patient. No acute distress. SKIN: Warm and dry. No rash. EYES: No scleral icterus. No injection or drainage. PERRLA. EOMI. HENT: Normocephalic. Atraumatic. MMM. NECK: No visible JVD or lymphadenopathy. CARDIOVASCULAR: Regular rate and rhythm, normal S1/S2, No M/R/G RESPIRATORY: Expiratory wheezes at the bases, improved. Equal bilaterally. No crackles or rhonchi. GASTROINTESTINAL: Abdomen non tender, soft, mildly distended, +BS. : Scrotum and shaft of penis are erythematous and edematous. Broderick catheter in place. Scrotum and penis diffusely tender to light touch. NEURO/PSYCH: Afocal. Awake, alert, and oriented x3. A/P Assessment and Plan 51-year-old male with history of diabetes and COPD presents with penile and testicle swelling after I&D. Failed outpatient antibiotics. Admitted for IV antibiotics and consultation to urologist. Critical care consulted due to bronchospasm, atrophic fibrillation with RVR. Discharge Planning Likely in the next 2-3 days. Pending improvement of infection and urology recommendations. Problem List: (1) Cellulitis of scrotum Status: Acute Plan: Patient presented with swelling and redness of penis and scrotal area. Imaging was significant for an abscess. I&D performed on 09/02, again on 09/30 due to persistent scrotal abscess. Concern for Aaron's gangrene, but ultrasound and CT negative. Mild leukocytosis on admission and normal CRP. Was on Bactrim outpatient. -Continue Vancomycin q12H, pharmacy consult- Currently on hold by pharmacy -Continue Zosyn 3.375g q6h -Urology consulted -appreciate recs -Pt known to Dr. Herrera -MRI pelvis completed, s/p I&D 09/30 -Blood culture no growth to date Imagin09/27/2016 Pelvis MRI: 1.91.21.0 cm subcutaneous enhancing fluid collection consistent with subcutaneous abscess within the right scrotum. This appears to be communicating with the skin surface. Scrotal US: unremarkable, benign calcification on left testicle Pelvis CT: Air in bladder, scrotal wall thickening (2) Atrial fibrillation with RVR Status: Acute Plan: Patient with new onset atrial fibrillation with RVR. On exam pt with regular rhythm, rate controlled -Heart rate currently controlled, patient in sinus rhythm -Consider oral Cardizem if needed -Continue to monitor (3) Diabetes Status: Acute Plan: History of chronic diabetes on insulin. Patient is on Levemir 24 units twice a day and Humalog sliding scale 3 times a day. -Levemir 24 units BID, pt is now on IV steroids which will impact blood sugar. -Low dose sliding scale insulin -Monitor blood glucose levels -May need to adjust long-acting insulin pending glucose levels (4) HAYLEY (acute kidney injury) Status: Acute Plan: Creatinine overall downtrending, continue to monitor. Nephrology consulted, appreciate recommendations. Possibly due to medication Renal ultrasound normal Avoid nephrotoxic medications and renally dose medications as indicated (5) UTI (urinary tract infection) Status: Acute Plan: Urine culture Escherichia coli Antibiotics as above (6) Abdominal distension Status: Acute Plan: Pt reports improved abdominal distention, denies abdominal pain -Continue current bowel regimen -Abdominal X-ray significant for significant amount of stool and gas, otherwise negative (7) COPD (chronic obstructive pulmonary disease) Status: Chronic Plan: History of chronic COPD, on nebulizer, Symbicort. Shortness of breath also likely exacerbated by CHF. Breathing improving - Will decrease IV steriods: IV Methylprednisolone 60 mg Q12hr -Continue Symbicort -DuoNeb's every 4 hours -Albuterol PRN -Continue to monitor (8) Hypertension Status: Chronic Plan: History of hypertension. -Continue home lisinopril -Hydralazine PRN (9) Tobacco abuse Status: Chronic Plan: Pt smoking 1 PPD, not interested in quitting at this time -Counseled on risks of smoking and benefits of quitting (10) FEN Status: Acute Plan: Fluids: We'll hold fluids due to concern for fluid overload Electrolytes: continue to monitor Nutrition: Diabetic diet DVT ppx: Lovenox Problem Qualifiers (1) Diabetes: Qualified Code: E11.59 - Type 2 diabetes mellitus with other circulatory complication, with long-term current use of insulin (2) UTI (urinary tract infection): Qualified Code: N30.00 - Acute cystitis without hematuria (3) COPD (chronic obstructive pulmonary disease): Qualified Code: J44.9 - Chronic obstructive pulmonary disease, unspecified COPD type (4) Hypertension: Qualified Code: I10 - Essential hypertension Shayy Alexis MD R2 Oct 04, 2016 09:12
[2016-10-04] MEDS: DOCUSATE SODIUM 50 MG/SENNA 8.6 MG TAB PO SCH ×2 (09:15→21:27)
[2016-10-04] MEDS: BUDESONIDE-FORMOTEROL 80/4.5 MCG INHALER INH SCH ×2 (09:53→21:31)
--- NOTE | 2016-10-04 10:50 | HHI.NPPN ---
Subjective History of Present Illness 61 year old with Diabetes, ARF, Afib, groin infection Additional Remarks Patient is alert, not in distress. Review of Systems General Constitutional: Fatigue Objective Data Data 10/03/16 10/04/16 19:00 07:00 Intake Total 1135 ml 480 ml Output Total 3000 ml 1500 ml Balance -1865 ml -1020 ml Intake Oral 600 ml 480 ml IV Total 535 ml Output Urine Total 3000 ml 1500 ml # Bowel Movements 0 Vital Signs Date Time Temp Pulse Resp B/P Pulse Ox O2 Delivery O2 Flow Rate FiO2 10/04/16 08:00 97.4 60 15 152/74 96 10/04/16 06:37 97.5 69 20 158/75 94 10/04/16 00:00 98.0 69 21 148/70 94 10/03/16 22:00 69 10/03/16 20:00 69 10/03/16 20:00 97.7 62 21 168/79 97 10/03/16 19:00 98 Nasal Cannula 3.00 10/03/16 18:18 65 10/03/16 17:05 97.5 59 18 173/79 97 10/03/16 12:00 97.7 57 19 158/78 95 -: 10/04/16 0645 10/04/16 0645 Physical Exam General Appearance: Well Developed, Well Nourished, No Acute Distress, Comfortable Neck Neck Exam: Neck Supple Pulmonary Resp Exam: Clear Bilaterally, Breath Sounds Equal Cardiology CV Exam: Regular, Normal Sinus Rhythm Gastrointestinal/Abdomen GI Exam: Soft, Non-Tender, Bowel Sounds Present Extremeties Extremities Exam: No Edema Neurologic Neuro Exam: Alert, Awake, Oriented Psychiatric Psych Exam: Appropriate Responses Assessment/Plan Problem List: (1) Acute renal failure Plan: cr declined to 1.[address] Charles to follow on Tuesday (2) Diabetes type 2, uncontrolled Plan: stable (3) UTI (urinary tract infection) Plan: E coli on Zosyn (4) Cellulitis of scrotum Plan: urology following on Vanco Plan Patient has been non oliguric. Creatinine is improving. On Vancomycin, follow the Vanco. level. Avoid Nephrotoxins. Problem Qualifiers (1) Diabetes type 2, uncontrolled: (2) UTI (urinary tract infection): Qualified Code: N30.00 - Acute cystitis without hematuria Alex Charles MD Oct 04, 2016 10:50
[2016-10-04] MEDS: VANCOMYCIN 1,500 MG/NS 500 ML IV SCH ×2 (11:56)
[2016-10-04] MEDS ORDERED: LISI2.5T3 PO (12:58)
[2016-10-04] MEDS: ACETAMINOPHEN/HYDROcodone 325 MG/10 MG TAB PO PRN ×2 (16:08→22:52)
[2016-10-04] MEDS: ENOXAPARIN SODIUM 40 MG/0.4 ML SYRINGE SQ SCH (17:27)
[2016-10-04] MEDS: methylPREDNISolone SOD SUCC 125 MG/2 ML VIAL IV PUSH SCH (17:27)
[2016-10-04] MEDS: TAMSULOSIN HCL 0.4 MG CAP PO SCH (21:27)
[2016-10-04] MEDS: hydrALAZINE HCL 20 MG/ML VIAL IV PRN (23:08)
[2016-10-05] VITALS (9 sets, daily range): BP systolic 104–188; BP diastolic 55–87; PULSE 51–76; RESP 16–21; TEMP 97.4–98.7; O2SAT 94–98
[2016-10-05] MEDS: ACETAMINOPHEN/HYDROcodone 325 MG/10 MG TAB PO PRN ×3 (03:18→23:29)
[2016-10-05] MEDS: PIPERACIL-TAZO 3.375 GM PREMIX 50 ML IV SCH ×4 (05:21→20:30)
[2016-10-05] MEDS: methylPREDNISolone SOD SUCC 125 MG/2 ML VIAL IV PUSH SCH ×2 (05:24→16:26)
[2016-10-05] MEDS: INSULIN ASPART SUPPLEMENTAL SCALE SQ SCH ×4 (06:52→20:25)
[2016-10-05] MEDS: SODIUM CHLORIDE 0.9% FLUSH 10 ML FLUSH IV FLUSH SCH ×2 (08:31→20:21)
[2016-10-05] MEDS: DOCUSATE SODIUM 50 MG/SENNA 8.6 MG TAB PO SCH ×2 (08:32→20:20)
[2016-10-05] MEDS: NYSTATIN 100,000 U/GM PWD 15 GM BTL TOPICAL SCH ×2 (08:33→20:30)
[2016-10-05] MEDS: BUDESONIDE-FORMOTEROL 80/4.5 MCG INHALER INH SCH ×2 (08:33→20:21)
[2016-10-05] MEDS: LISINOPRIL 5 MG TAB PO SCH (08:36)
[2016-10-05] MEDS: PREGABALIN 100 MG CAP PO SCH ×2 (08:36→20:20)
[2016-10-05] MEDS: INSULIN DETEMIR 100 UNITS/ML VIAL SQ SCH ×2 (08:39→20:25)
--- NOTE | 2016-10-05 11:49 | HHI.PR ---
Subjective Patient symptoms today Pt irritated. Refusing sitz baths. Demanded escamilla to come out. Escamilla removed at bedside. Objective Vital Signs Vital Signs Date Time Temp Pulse Resp B/P Pulse Ox O2 Delivery O2 Flow Rate FiO2 10/05/16 08:03 97.9 55 18 163/78 96 10/05/16 04:00 98.7 74 18 144/70 97 10/05/16 01:56 156/63 10/05/16 00:00 97.9 69 21 185/87 96 10/04/16 20:48 98.0 69 18 168/80 94 10/04/16 19:00 Nasal Cannula 3.00 10/04/16 16:00 98.0 68 15 170/81 96 10/04/16 13:05 54 10/04/16 12:00 98.0 73 15 159/74 93 Intake & Output 10/05/16 10/05/16 06:59 18:59 Intake Total 1680 ml 50 ml Balance 1680 ml 50 ml Intake Oral 1680 ml IV Total 50 ml # Voids 3 # Bowel Movements 1 Result Diagram: 10/04/16 0645 10/04/16 0645 Objective Remarks Scrotum: erythema/painful to touch Scrotum elevated with towel placed underneath Escamilla with some sediment in urine 09/28 Scrotum: erythema improving; still with swelling Scrotum elevated with towel placed underneath Escamilla with some sediment in urine 09/29 Scrotum: erythema improving; still with swelling; scrotal abcess on MRI Escamilla with sediment 10/01 Abd:soft,nt,nt. Scrotal wound: packing changed at bedside; Cellulitis improved. Swellling still present Escamilla with sediment 10/04 Abd:soft,nt,nd Wound: some drainage noted. Packing in place : scrotal swelling with fungal rash present 10/05 Abd:soft,nt,nd Scrotal swelling improving Medications and IVs Current Medications Medications (Trade) Dose Ordered Sig/Lela Route Start Time Stop Time Status Last Admin (NS Flush) 2 ml BID IV FLUSH 09/25/16 21:00 10/05/16 08:31 Sodium Chloride 2 ml 2 ml UNSCH PRN IV FLUSH 09/25/16 17:00 Sodium Chloride 1,000 ml @ 125 mls/hr Q8H IV 09/25/16 17:00 Hold 09/29/16 14:30 (Vancomycin Consult Pharmacy) 0 ml @ 0 mls/hr UNSCH OTHER 09/25/16 17:00 ([place] 5-325 Mg) 1 tab Q4H PRN PO 09/25/16 17:00 10/04/16 02:47 Enoxaparin Sodium 40 mg 40 mg Q24H SQ 09/25/16 18:00 10/03/16 17:41 (Zosyn 3.375 Gm Premix) 50 ml @ 100 mls/hr Q6H IV 09/25/16 22:00 10/05/16 08:40 (Morphine Inj) 4 mg Q3H PRN IV 09/25/16 17:15 10/03/16 10:22 (Narcan Inj) 0.4 mg UNSCH PRN IV 09/25/16 17:15 (Symbicort 80-4.5 Mcg Inh) 1 puff Q12HR INH 09/25/16 21:00 10/04/16 21:31 (Lyrica) 200 mg BID PO 09/25/16 21:00 10/04/16 21:27 (Flomax) 0.4 mg HS PO 09/25/16 21:00 10/04/16 21:27 (Prinivil) 2.5 mg DAILY PO 09/26/16 09:00 10/04/16 09:00 (Restoril) 15 mg HS PRN PO 09/27/16 00:30 09/29/16 21:11 Acetaminophen/ Hydrocodone Bitart 1 tab 1 tab Q4H PRN PO 09/29/16 13:00 10/05/16 03:18 Diltiazem HCl 125 mg/Sodium Chloride 125 ml @ 0 mls/hr TITRATE IV 09/30/16 14:45 09/30/16 15:24 (KCl 20 Meq Premix Inj) 100 ml @ 50 mls/hr Q2H IV 09/30/16 17:00 09/30/16 20:59 Hold (Levemir Inj) 24 units BID SQ 10/01/16 09:00 10/04/16 21:29 (D50w (Vial) Inj) 50 ml UNSCH PRN IV 10/01/16 07:15 Glucagon 1 mg 1 mg UNSCH PRN OTHER 10/01/16 07:15 (Vancomycin Inj/ NS 500 ml Inj) 515 ml @ 257.5 mls/ hr Q24H IV 10/03/16 11:00 10/04/16 11:56 Miscellaneous Information SPECIFIC LAB TO BE ELVIN... 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 coli UTI Continue IV abx Maintain escamilla for now MRI in AM to evaluate presence of fistula 09/29 61 y.o male with scrotal cellulitis and scrotal abcess on MRI For I&D in OR tomorrow 10/01 61 y.o male s/p I&D of scrotal abcess without evidence of urethral cutaneous fistula Continue IV ABX Continue Escamilla drainage; Void trial next week prior to discharge. Daily packing changes Left upper arm US today for swelling. 10/04 61 y.o male s/p I&D of scrotal abcess without evidence of urethral cutaneous fistula Continue IV ABX Nystatin powder for fungal rash Daily Sitz baths with Epson Salts D/C in the next few days 10/05 61 y.o male s/p I&D of scrotal abcess without evidence of urethral cutaneous fistula Continue IV ABX Nystatin powder for fungal rash Daily Sitz baths with Epson Salts Void trial today Juan Ramon Herrera DO Oct 05, 2016 11:49
[2016-10-05] MEDS: VANCOMYCIN 1,500 MG/NS 500 ML IV SCH ×2 (11:54)
--- NOTE | 2016-10-05 12:02 | HHI.FPPN ---
Subjective Remarks Patient seen and examined this morning. Temperature 97.9, pulse 55, respiratory rate 18, blood pressure 163/78, pulse ox 96 on room air. Patient was eating breakfast this morning. His main complaint is that he does not feel the swelling has improved in his room. He still having severe pain in the scrotum. He is becoming very angry with this length of stay in the hospital. Explained to him that the current plan is to continue antibiotics and hope for discharge the next few days. Endorses: Scrotal swelling, scrotal pain, irritation Denies: Fever, chills, nausea, vomiting, shortness of breath, chest pain, headache, abdominal pain, calf pain Objective Vitals Vital Signs Date Time Temp Pulse Resp B/P Pulse Ox O2 Delivery O2 Flow Rate FiO2 10/05/16 08:03 97.9 55 18 163/78 96 10/05/16 04:00 98.7 74 18 144/70 97 10/05/16 01:56 156/63 10/05/16 00:00 97.9 69 21 185/87 96 10/04/16 20:48 98.0 69 18 168/80 94 10/04/16 19:00 Nasal Cannula 3.00 10/04/16 16:00 98.0 68 15 170/81 96 10/04/16 13:05 54 10/04/16 12:00 98.0 73 15 159/74 93 I/O 10/04/16 10/04/16 10/04/16 10/05/16 10/05/16 10/05/16 07:00 15:00 23:00 07:00 15:00 23:00 Intake Total 480 ml 1200 ml 480 ml 50 ml Output Total 1550 ml Balance -1070 ml 1200 ml 480 ml 50 ml Intake Oral 480 ml 1200 ml 480 ml IV Total 50 ml Output Urine Total 1550 ml # Voids 3 1 # Bowel Movements 1 Result Diagram: 10/04/16 0645 10/04/16 0645 Imaging Last Impressions Abdomen X-Ray 10/03/16 0000 Signed Impressions: Service Date/Time: Monday, October 03, 2016 10:10 - CONCLUSION: Moderate stool and bowel gas throughout the colon otherwise negative. Valentin Kendrick MD FACR Renal Ultrasound 10/01/16 0000 Signed Impressions: Service Date/Time: Saturday, October 01, 2016 22:48 - CONCLUSION: Normal examination. Errol Ellison MD Chest X-Ray 09/30/16 0000 Signed Impressions: Service Date/Time: September 15:23 - CONCLUSION: Bibasilar airspace disease and probable associated effusions. Bertin Estrada MD Pelvis MRI 09/27/16 0000 Signed Impressions: Service Date/Time: Tuesday, September 27, 2016 14:38 - CONCLUSION: 1. 1.9 x 2.3 x 1.0 cm subcutaneous enhancing fluid collection consistent with subcutaneous abscess within the right scrotum. This appears to communicate with the skin surface. Clinical correlation is recommended. 2. Diffuse scotal swelling. Daniel Dickerson MD Scrotum Ultrasound 09/25/16 0000 Signed Impressions: Service Date/Time: Sunday, September 25, 2016 13:57 - CONCLUSION: Unremarkable study except for benign calcification involving the left testicle could be in the testicle itself or possibly outside of it. Jolanta Smith MD Pelvis CT 09/25/16 0000 Signed Impressions: Service Date/Time: Sunday, September 25, 2016 15:07 - CONCLUSION: 1. Air in the bladder could be acu genic or infectious. Urinalysis recommended. 2. Scrotal wall thickening. 3. Low lying right kidney. Flip Sandy MD Objective Remarks GENERAL: Well-nourished, well-developed patient. No acute distress. SKIN: Warm and dry. No rash. EYES: No scleral icterus. No injection or drainage. PERRLA. EOMI. HENT: Normocephalic. Atraumatic. MMM. NECK: No visible JVD or lymphadenopathy. CARDIOVASCULAR: Regular rate and rhythm, normal S1/S2, No M/R/G RESPIRATORY: Expiratory wheezes at the bases, improved. Equal bilaterally. No crackles or rhonchi. GASTROINTESTINAL: Abdomen non tender, soft, mildly distended, +BS. : Scrotum and shaft of penis are erythematous and edematous, with some improvement in swelling from previous exams. Broderick catheter in place. Scrotum and penis diffusely tender to light touch. NEURO/PSYCH: Afocal. Awake, alert, and oriented x3. Medications and IVs Current Medications Medications (Trade) Dose Ordered Sig/Lela Route Start Time Stop Time Status Last Admin (NS Flush) 2 ml BID IV FLUSH 09/25/16 21:00 10/05/16 08:31 Sodium Chloride 2 ml 2 ml UNSCH PRN IV FLUSH 09/25/16 17:00 Sodium Chloride 1,000 ml @ 125 mls/hr Q8H IV 09/25/16 17:00 Hold 09/29/16 14:30 (Vancomycin Consult Pharmacy) 0 ml @ 0 mls/hr UNSCH OTHER 09/25/16 17:00 ([place] 5-325 Mg) 1 tab Q4H PRN PO 09/25/16 17:00 10/04/16 02:47 Enoxaparin Sodium 40 mg 40 mg Q24H SQ 09/25/16 18:00 10/03/16 17:41 (Zosyn 3.375 Gm Premix) 50 ml @ 100 mls/hr Q6H IV 09/25/16 22:00 10/05/16 08:40 (Morphine Inj) 4 mg Q3H PRN IV 09/25/16 17:15 10/03/16 10:22 (Narcan Inj) 0.4 mg UNSCH PRN IV 09/25/16 17:15 (Symbicort 80-4.5 Mcg Inh) 1 puff Q12HR INH 09/25/16 21:00 10/04/16 21:31 (Lyrica) 200 mg BID PO 09/25/16 21:00 10/04/16 21:27 (Flomax) 0.4 mg HS PO 09/25/16 21:00 10/04/16 21:27 (Prinivil) 2.5 mg DAILY PO 09/26/16 09:00 10/04/16 09:00 (Restoril) 15 mg HS PRN PO 09/27/16 00:30 09/29/16 21:11 Acetaminophen/ Hydrocodone Bitart 1 tab 1 tab Q4H PRN PO 09/29/16 13:00 10/05/16 03:18 Diltiazem HCl 125 mg/Sodium Chloride 125 ml @ 0 mls/hr TITRATE IV 09/30/16 14:45 09/30/16 15:24 (KCl 20 Meq Premix Inj) 100 ml @ 50 mls/hr Q2H IV 09/30/16 17:00 09/30/16 20:59 Hold (Levemir Inj) 24 units BID SQ 10/01/16 09:00 10/04/16 21:29 (D50w (Vial) Inj) 50 ml UNSCH PRN IV 10/01/16 07:15 Glucagon 1 mg 1 mg UNSCH PRN OTHER 10/01/16 07:15 (Vancomycin Inj/ NS 500 ml Inj) 515 ml @ 257.5 mls/ hr Q24H IV 10/03/16 11:00 10/04/16 11:56 Miscellaneous Information SPECIFIC LAB TO BE ELVIN... ONCE ONCE .XX 10/06/16 10:45 10/06/16 10:46 (Apresoline) 10 mg Q6H PRN PO 10/03/16 16:00 (Mycostatin Powder) 1 applic Q12HR TOPICAL 10/04/16 09:00 10/05/16 08:33 (Katie-Colace) 1 tab BID PO 10/04/16 09:15 10/04/16 21:27 (SoluMEDROL INJ) 60 mg Q12H IV PUSH 10/04/16 17:00 10/05/16 05:24 A/P Assessment and Plan 51-year-old male with history of diabetes and COPD presents with penile and testicle swelling after I&D. Failed outpatient antibiotics. Admitted for IV antibiotics and consultation to urologist. Critical care consulted due to bronchospasm, atrophic fibrillation with RVR. Discharge Planning Likely in the next 2-3 days. Pending improvement of infection and urology recommendations. Problem List: (1) Cellulitis of scrotum Status: Acute Plan: Mild improvement in the swelling. Patient still complaining of severe pain and does not feel that the swelling has improved. He is irritated at this time with a progress of his infection/hospitalization. -Continue Vancomycin q12H, pharmacy consult- Currently on hold by pharmacy -Continue Zosyn 3.375g q6h -Urology consulted -appreciate recs -Pt known to Dr. Herrera -MRI pelvis completed, s/p I&D 09/30 -Blood culture no growth to date (2) Atrial fibrillation with RVR Status: Acute Plan: Patient with new onset atrial fibrillation with RVR. On exam pt with regular rhythm, rate controlled -Heart rate currently controlled, patient in sinus rhythm -Consider oral Cardizem if needed -Continue to monitor (3) Diabetes Status: Acute Plan: History of chronic diabetes on insulin. Patient is on Levemir 24 units twice a day and Humalog sliding scale 3 times a day. -Levemir 24 units BID, pt is now on IV steroids which will impact blood sugar. -Low dose sliding scale insulin -Monitor blood glucose levels -May need to adjust long-acting insulin pending glucose levels (4) HAYLEY (acute kidney injury) Status: Acute Plan: Creatinine overall downtrending, continue to monitor. Nephrology consulted, appreciate recommendations. Possibly due to medication Avoid nephrotoxic medications and renally dose medications as indicated (5) UTI (urinary tract infection) Status: Acute Plan: Urine culture Escherichia coli Antibiotics as above (6) Abdominal distension Status: Acute Plan: Pt reports improved abdominal distention, denies abdominal pain -Continue current bowel regimen -Abdominal X-ray significant for significant amount of stool and gas, otherwise negative (7) COPD (chronic obstructive pulmonary disease) Status: Chronic Plan: History of chronic COPD, on nebulizer, Symbicort. Shortness of breath also likely exacerbated by CHF. Breathing improving -IV Methylprednisolone 60 mg Q12hr -Continue Symbicort -DuoNeb's every 4 hours -Albuterol PRN -Continue to monitor (8) Hypertension Status: Chronic Plan: History of hypertension. -Continue home lisinopril -Hydralazine PRN (9) Tobacco abuse Status: Chronic Plan: Pt smoking 1 PPD, not interested in quitting at this time -Counseled on risks of smoking and benefits of quitting (10) FEN Status: Acute Plan: Fluids: Taking in adequate PO Electrolytes: continue to monitor replace according Nutrition: Diabetic diet DVT ppx: Lovenox Problem Qualifiers (1) Diabetes: Qualified Code: E11.59 - Type 2 diabetes mellitus with other circulatory complication, with long-term current use of insulin (2) UTI (urinary tract infection): Qualified Code: N30.00 - Acute cystitis without hematuria (3) COPD (chronic obstructive pulmonary disease): Qualified Code: J44.9 - Chronic obstructive pulmonary disease, unspecified COPD type (4) Hypertension: Qualified Code: I10 - Essential hypertension Fco Hood MD R2 Oct 05, 2016 12:02
[2016-10-05] MEDS ORDERED: MAGNESIUM SULFATE OTHER PRN (15:00)
[2016-10-05] MEDS: ENOXAPARIN SODIUM 40 MG/0.4 ML SYRINGE SQ SCH (16:33)
[2016-10-05] MEDS: hydrALAZINE HCL 10 MG TAB PO PRN (16:55)
--- NOTE | 2016-10-05 17:12 | HHI.NPPN ---
Subjective History of Present Illness 61 year old with Diabetes, ARF, Afib, groin infection Additional Remarks Patient is alert, breathing is better and started eating. Review of Systems General Constitutional: Fatigue Objective Data Data 10/04/16 10/05/16 19:00 07:00 Intake Total 480 ml 1680 ml Output Total 1550 ml Balance -1070 ml 1680 ml Intake Oral 480 ml 1680 ml Output Urine Total 1550 ml # Voids 1 3 # Bowel Movements 1 Vital Signs Date Time Temp Pulse Resp B/P Pulse Ox O2 Delivery O2 Flow Rate FiO2 10/05/16 16:06 97.4 59 17 182/82 97 10/05/16 12:06 51 10/05/16 12:06 97.8 62 18 151/65 94 10/05/16 08:03 97.9 55 18 163/78 96 10/05/16 04:00 98.7 74 18 144/70 97 10/05/16 01:56 156/63 10/05/16 00:00 97.9 69 21 185/87 96 10/04/16 20:48 98.0 69 18 168/80 94 10/04/16 19:00 Nasal Cannula 3.00 -: 10/04/16 0645 10/04/16 0645 Physical Exam General Appearance: Well Developed, Well Nourished, No Acute Distress, Comfortable Neck Neck Exam: Neck Supple Pulmonary Resp Exam: Clear Bilaterally, Breath Sounds Equal Cardiology CV Exam: Regular, Normal Sinus Rhythm Gastrointestinal/Abdomen GI Exam: Soft, Non-Tender, Bowel Sounds Present Extremeties Extremities Exam: No Edema Neurologic Neuro Exam: Alert, Awake, Oriented Psychiatric Psych Exam: Appropriate Responses Assessment/Plan Problem List: (1) Acute renal failure Plan: cr declined to 1.[address] Charles to follow on Tuesday (2) Diabetes type 2, uncontrolled Plan: stable (3) UTI (urinary tract infection) Plan: E coli on Zosyn (4) Cellulitis of scrotum Plan: urology following on Vanco Plan Patient has been non oliguric. Creatinine is improving, no new BMP today. On Vancomycin, follow the Vanco. level. Avoid Nephrotoxins. BP is elevated, has been refusing PO meds. Problem Qualifiers (1) Diabetes type 2, uncontrolled: (2) UTI (urinary tract infection): Qualified Code: N30.00 - Acute cystitis without hematuria Alex Charles MD Oct 05, 2016 17:11
[2016-10-05] MEDS: TAMSULOSIN HCL 0.4 MG CAP PO SCH (20:20)
[2016-10-06 03:54] VITALS: BP 190/88; PULSE 57; RESP 18; TEMP 98.3; O2SAT 95
[2016-10-06] MEDS: PIPERACIL-TAZO 3.375 GM PREMIX 50 ML IV SCH ×4 (04:13→20:49)
[2016-10-06] MEDS: methylPREDNISolone SOD SUCC 125 MG/2 ML VIAL IV PUSH SCH (04:14)
[2016-10-06] MEDS: ACETAMINOPHEN/HYDROcodone 325 MG/10 MG TAB PO PRN ×2 (04:21→23:08)
[2016-10-06 06:26] VITALS: BP 176/84; PULSE 56; RESP 16; TEMP 97.8; O2SAT 94
[2016-10-06] MEDS: SODIUM CHLORIDE 0.9% FLUSH 10 ML FLUSH IV FLUSH SCH ×2 (06:27→20:45)
[2016-10-06] MEDS: PREGABALIN 100 MG CAP PO SCH ×2 (06:27→20:42)
[2016-10-06] MEDS: LISINOPRIL 5 MG TAB PO SCH (06:27)
[2016-10-06] MEDS: DOCUSATE SODIUM 50 MG/SENNA 8.6 MG TAB PO SCH ×2 (06:27→20:42)
[2016-10-06] MEDS: NYSTATIN 100,000 U/GM PWD 15 GM BTL TOPICAL SCH ×2 (06:28→20:43)
[2016-10-06] MEDS: BUDESONIDE-FORMOTEROL 80/4.5 MCG INHALER INH SCH ×2 (06:28→20:44)
[2016-10-06] MEDS: INSULIN ASPART SUPPLEMENTAL SCALE SQ SCH ×4 (06:32→20:47)
[2016-10-06] MEDS: INSULIN DETEMIR 100 UNITS/ML VIAL SQ SCH ×2 (06:32→20:47)
[2016-10-06 09:17] LABS: HEMATOCRIT 38.9 % (39.0-51.0); MEAN CELL VOLUME 82.7 FL (80.0-100.0); MEAN CORPUSCULAR HEMOGLOBIN 27.4 PG (27.0-34.0); MEAN CORPUSCULAR HGB CONC 33.2 % (32.0-36.0); PLATELET COUNT 195 TH/MM3 (150-450); RED CELL DISTRIBUTION WIDTH 14.3 % (11.6-17.2); REVIEW FLAG FINAL; WHITE BLOOD COUNT 12.8 TH/MM3 (4.0-11.0)
[2016-10-06 09:43] LABS: BICARBONATE 25.1 MEQ/L (21.0-32.0); POTASSIUM 4.1 MEQ/L (3.5-5.1)
--- NOTE | 2016-10-06 10:37 | HHI.FPPN ---
Subjective Remarks Patient seen and examined this morning. No acute events overnight. Patient reports that his breathing is stable. He denies chest pain, abdominal pain. Swelling in his groin area is stable. He is voiding without difficulty, denies dysuria, frequency. No pain of his lower extremities. He has no other acute concerns. Objective Vitals Vital Signs Date Time Temp Pulse Resp B/P Pulse Ox O2 Delivery O2 Flow Rate FiO2 10/06/16 06:26 97.8 56 16 176/84 94 10/06/16 03:54 98.3 57 18 190/88 95 10/05/16 23:42 97.9 75 16 165/76 97 10/05/16 20:56 188/79 10/05/16 20:53 98.2 76 16 104/55 98 10/05/16 16:06 97.4 59 17 182/82 97 10/05/16 12:06 51 10/05/16 12:06 97.8 62 18 151/65 94 I/O 10/05/16 10/05/16 10/05/16 10/06/16 10/06/16 10/06/16 06:59 14:59 22:59 06:59 14:59 22:59 Intake Total 480 ml 290 ml 240 ml Output Total 2800 ml Balance 480 ml -2510 ml 240 ml Intake Oral 480 ml 240 ml 240 ml IV Total 50 ml Output Urine Total 2800 ml # Voids 1 1 # Bowel Movements 1 Result Diagram: 10/06/1682410/06/16 0825 Objective Remarks GENERAL: Well-nourished, well-developed patient. No acute distress. SKIN: Warm and dry. No rash. EYES: No scleral icterus. No injection or drainage. PERRLA. EOMI. HENT: Normocephalic. Atraumatic. MMM. NECK: No visible JVD or lymphadenopathy. CARDIOVASCULAR: Regular rate and rhythm, normal S1/S2, No M/R/G RESPIRATORY: Expiratory wheezes at the bases, improved. Equal bilaterally. No crackles or rhonchi. GASTROINTESTINAL: Abdomen non tender, soft, mildly distended, +BS. : Scrotum and shaft of penis are erythematous and edematous, with some improvement in swelling from previous exams. Scrotum and penis tender to light touch. NEURO/PSYCH: Afocal. Awake, alert, and oriented x3. A/P Assessment and Plan 51-year-old male with history of diabetes and COPD presents with penile and testicle swelling after I&D. Failed outpatient antibiotics. Admitted for IV antibiotics and consultation to urologist. Discharge Planning Likely in the next 2-3 days. Pending improvement of infection and urology recommendations. Problem List: (1) Cellulitis of scrotum Status: Acute Plan: Mild improvement in the swelling. Patient still complaining of severe pain and does not feel that the swelling has improved. He is irritated at this time with a progress of his infection/hospitalization. -Urology consulted -appreciate recs and intervention -Pt known to Dr. Herrera -Continue Vancomycin q12H, pharmacy consult -Continue Zosyn 3.375g q6h -MRI pelvis completed, s/p I&D 09/30 -Blood culture no growth to date (2) Diabetes Status: Acute Plan: History of chronic diabetes on insulin. Patient is on Levemir 24 units twice a day and Humalog sliding scale 3 times a day. -Levemir 24 units BID, pt is now on IV steroids which will impact blood sugar. -Low dose sliding scale insulin -Monitor blood glucose levels -May need to adjust long-acting insulin pending glucose levels (3) HAYLEY (acute kidney injury) Status: Acute Plan: Creatinine overall downtrending, continue to monitor. -Nephrology consulted, appreciate recommendations. -Possibly due to medication -Avoid nephrotoxic medications and renally dose medications as indicated (4) UTI (urinary tract infection) Status: Acute Plan: Urine culture Escherichia coli Antibiotics as above (5) Abdominal distension Status: Acute Plan: Pt reports improved abdominal distention, denies abdominal pain -Continue current bowel regimen -Abdominal X-ray with significant amount of stool and gas, otherwise negative (6) COPD (chronic obstructive pulmonary disease) Status: Chronic Plan: History of chronic COPD, on nebulizer, Symbicort. Shortness of breath also likely exacerbated by CHF. Breathing stable -PO steroids: Prednisone 30 mg PO BID -Continue Symbicort -DuoNeb's every 4 hours -Albuterol PRN -Continue to monitor (7) Hypertension Status: Chronic Plan: History of hypertension. -Increase to lisinopril to 5mg, continue to monitor -Hydralazine PRN (8) Tobacco abuse Status: Chronic Plan: Pt smoking 1 PPD, not interested in quitting at this time -Counseled on risks of smoking and benefits of quitting (9) FEN Status: Acute Plan: Fluids: Taking in adequate PO Electrolytes: continue to monitor replace according Nutrition: Diabetic diet DVT ppx: Lovenox Problem Qualifiers (1) Diabetes: Qualified Code: E11.59 - Type 2 diabetes mellitus with other circulatory complication, with long-term current use of insulin (2) UTI (urinary tract infection): Qualified Code: N30.00 - Acute cystitis without hematuria (3) COPD (chronic obstructive pulmonary disease): Qualified Code: J44.9 - Chronic obstructive pulmonary disease, unspecified COPD type (4) Hypertension: Qualified Code: I10 - Essential hypertension Shayy Alexis MD R2 Oct 06, 2016 10:37 Qualified Code: I10 - Essential hypertension Shayy Alexis MD R2 Oct 06, 2016 10:37
[2016-10-06] MEDS ORDERED: PHARMACY ORDERED LAB ONE (10:45)
[2016-10-06] MEDS: VANCOMYCIN 1,500 MG/NS 500 ML IV SCH ×2 (10:58)
--- NOTE | 2016-10-06 11:33 | HHI.PR ---
Subjective Patient symptoms today Pt seen and examined. [place]am[place] out and voiding. WBC up to 12,8 from 11.9. No fevers. Objective Vital Signs Vital Signs Date Time Temp Pulse Resp B/P Pulse Ox O2 Delivery O2 Flow Rate FiO2 10/06/16 06:26 97.8 56 16 176/84 94 10/06/16 03:54 98.3 57 18 190/88 95 10/05/16 23:42 97.9 75 16 165/76 97 10/05/16 20:56 188/79 10/05/16 20:53 98.2 76 16 104/55 98 10/05/16 16:06 97.4 59 17 182/82 97 10/05/16 12:06 51 10/05/16 12:06 97.8 62 18 151/65 94 Intake & Output 10/06/16 10/06/16 07:00 19:00 Intake Total 240 ml Balance 240 ml Intake Oral 240 ml Result Diagram: 10/06/1682410/06/16824 Objective Remarks Scrotum: erythema/painful to touch Scrotum elevated with towel placed underneath [place] with some sediment in urine 09/28 Scrotum: erythema improving; still with swelling Scrotum elevated with towel placed underneath [place] with some sediment in urine 09/29 Scrotum: erythema improving; still with swelling; scrotal abcess on MRI Escam[place] with sediment 10/01 Abd:soft,nt,nt. Scrotal wound: packing changed at bedside; Cellulitis improved. Swellling still present [place] with sediment 10/04 Abd:soft,nt,nd Wound: some drainage noted. Packing in place : scrotal swelling with fungal rash present 10/05 Abd:soft,nt,nd Scrotal swelling improving 10/06 Abd:soft,nt,nd : worsening erythema and swelling today Packing in place Nystatin powder noted Medications and IVs Current Medications Medications (Trade) Dose Ordered Sig/Lela Route Start Time Stop Time Status Last Admin (NS Flush) 2 ml BID IV FLUSH 09/25/16 21:00 10/06/16 06:27 Sodium Chloride 2 ml 2 ml UNSCH PRN IV FLUSH 09/25/16 17:00 Sodium Chloride 1,000 ml @ 125 mls/hr Q8H IV 09/25/16 17:00 Hold 09/29/16 14:30 (Vancomycin Consult Pharmacy) 0 ml @ 0 mls/hr UNSCH OTHER 09/25/16 17:00 ([place] 5-325 Mg) 1 tab Q4H PRN PO 09/25/16 17:00 10/04/16 02:47 Enoxaparin Sodium 40 mg 40 mg Q24H SQ 09/25/16 18:00 10/03/16 17:41 (Zosyn 3.375 Gm Premix) 50 ml @ 100 mls/hr Q6H IV 09/25/16 22:00 10/06/16 10:58 (Morphine Inj) 4 mg Q3H PRN IV 09/25/16 17:15 10/03/16 10:22 (Narcan Inj) 0.4 mg UNSCH PRN IV 09/25/16 17:15 (Symbicort 80-4.5 Mcg Inh) 1 puff Q12HR INH 09/25/16 21:00 10/05/16 20:21 (Lyrica) 200 mg BID PO 09/25/16 21:00 10/06/16 06:27 (Flomax) 0.4 mg HS PO 09/25/16 21:00 10/05/16 20:20 (Prinivil) 2.5 mg DAILY PO 09/26/16 09:00 10/06/16 06:27 (Restoril) 15 mg HS PRN PO 09/27/16 00:30 09/29/16 21:11 Acetaminophen/ Hydrocodone Bitart 1 tab 1 tab Q4H PRN PO 09/29/16 13:00 10/06/16 04:21 Diltiazem HCl 125 mg/Sodium Chloride 125 ml @ 0 mls/hr TITRATE IV 09/30/16 14:45 09/30/16 15:24 (KCl 20 Meq Premix Inj) 100 ml @ 50 mls/hr Q2H IV 09/30/16 17:00 09/30/16 20:59 Hold (Levemir Inj) 24 units BID SQ 10/01/16 09:00 10/06/16 06:32 (D50w (Vial) Inj) 50 ml UNSCH PRN IV 10/01/16 07:15 Glucagon 1 mg 1 mg UNSCH PRN OTHER 10/01/16 07:15 (Vancomycin Inj/ NS 500 ml Inj) 515 ml @ 257.5 mls/ hr Q24H IV 10/03/16 11:00 10/06/16 10:58 (Apresoline) 10 mg Q6H PRN PO 10/03/16 16:00 10/05/16 16:55 (Mycostatin Powder) 1 applic Q12HR TOPICAL 10/04/16 09:00 10/06/16 06:28 (Katie-Colace) 1 tab BID PO 10/04/16 09:15 10/06/16 06:27 (SoluMEDROL INJ) 60 mg Q12H IV PUSH 10/04/16 17:00 10/06/16 04:14 (Epsom Salt) 454 gm Q24H PRN OTHER 10/05/16 15:00 Assessment and Plan Assessment and Plan 61 y.o male with 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 coli UTI Continue IV abx Maintain escamilla for now MRI in AM to evaluate presence of fistula 09/29 61 y.o male with scrotal cellulitis and scrotal abcess on MRI For I&D in OR tomorrow 10/01 61 y.o male s/p I&D of scrotal abcess without evidence of urethral cutaneous fistula Continue IV ABX Continue Escamilla drainage; Void trial next week prior to discharge. Daily packing changes Left upper arm US today for swelling. 10/04 61 y.o male s/p I&D of scrotal abcess without evidence of urethral cutaneous fistula Continue IV ABX Nystatin powder for fungal rash Daily Sitz baths with Epson Salts D/C in the next few days 10/05 61 y.o male s/p I&D of scrotal abcess without evidence of urethral cutaneous fistula Continue IV ABX Nystatin powder for fungal rash Daily Sitz baths with Epson Salts Void trial today 10/06 61 y.o male s/p I&D of scrotal abcess without evidence of urethral cutaneous fistula on both MRI and RUG Continue IV ABX Nystatin powder for fungal rash Daily Sitz baths with Epson Salts Continue Flomax Consider PICC line placement for IV abx as outpt Juan Ramon Herrera DO Oct 06, 2016 11:33
[2016-10-06 12:00] VITALS: BP 158/77; PULSE 54; RESP 20; TEMP 97.7; O2SAT 99
[2016-10-06 15:56] VITALS: BP 152/74; PULSE 60; RESP 20; TEMP 97.4; O2SAT 98
[2016-10-06] MEDS: ENOXAPARIN SODIUM 40 MG/0.4 ML SYRINGE SQ SCH (16:52)
[2016-10-06] MEDS: ACETAMINOPHEN/HYDROcodone 325 MG/5 MG TAB PO PRN (16:52)
--- NOTE | 2016-10-06 16:58 | HHI.NPPN ---
Subjective History of Present Illness 61 year old with Diabetes, ARF, Afib, groin infection Additional Remarks Patient is alert, feeling better, no SOB. Review of Systems General Constitutional: Fatigue Objective Data Data 10/05/16 10/06/16 19:00 07:00 Intake Total 290 ml 240 ml Output Total 2800 ml Balance -2510 ml 240 ml Intake Oral 240 ml 240 ml IV Total 50 ml Output Urine Total 2800 ml # Voids 1 # Bowel Movements 1 Vital Signs Date Time Temp Pulse Resp B/P Pulse Ox O2 Delivery O2 Flow Rate FiO2 10/06/16 15:56 97.4 60 20 152/74 98 10/06/16 12:00 97.7 54 20 158/77 99 10/06/16 06:26 97.8 56 16 176/84 94 10/06/16 03:54 98.3 57 18 190/88 95 10/05/16 23:42 97.9 75 16 165/76 97 10/05/16 20:56 188/79 10/05/16 20:53 98.2 76 16 104/55 98 -: 10/06/16 0825 10/06/16 0825 Physical Exam General Appearance: Well Developed, Well Nourished, No Acute Distress, Comfortable Neck Neck Exam: Neck Supple Pulmonary Resp Exam: Clear Bilaterally, Breath Sounds Equal Cardiology CV Exam: Regular, Normal Sinus Rhythm Gastrointestinal/Abdomen GI Exam: Soft, Non-Tender, Bowel Sounds Present Extremeties Extremities Exam: No Edema Neurologic Neuro Exam: Alert, Awake, Oriented Psychiatric Psych Exam: Appropriate Responses Assessment/Plan Problem List: (1) Acute renal failure Plan: cr declined to 1.[address] Charles to follow on Tuesday (2) Diabetes type 2, uncontrolled Plan: stable (3) UTI (urinary tract infection) Plan: E coli on Zosyn (4) Cellulitis of scrotum Plan: urology following on Vanco Plan Patient has been non oliguric. Creatinine is improving, On Vancomycin, follow the Vanco. level. Avoid Nephrotoxins. BP is elevated, started on Lisinopril. Avoid Nephrotoxins. Problem Qualifiers (1) Diabetes type 2, uncontrolled: (2) UTI (urinary tract infection): Qualified Code: N30.00 - Acute cystitis without hematuria Alex Charles MD Oct 06, 2016 16:58
[2016-10-06] MEDS: predniSONE 10 MG TAB PO SCH (20:42)
[2016-10-06] MEDS: TAMSULOSIN HCL 0.4 MG CAP PO SCH (20:42)
[2016-10-06 21:03] VITALS: BP 176/82; PULSE 62; RESP 18; TEMP 97.6; O2SAT 95
[2016-10-07 01:04] VITALS: BP 167/86; PULSE 56; RESP 18; TEMP 97.5; O2SAT 100
[2016-10-07 04:00] VITALS: BP 182/85; PULSE 53; RESP 18; TEMP 97.5; O2SAT 96
[2016-10-07] MEDS: ACETAMINOPHEN/HYDROcodone 325 MG/10 MG TAB PO PRN ×2 (05:27→21:59)
[2016-10-07] MEDS: PIPERACIL-TAZO 3.375 GM PREMIX 50 ML IV SCH ×2 (05:28→10:04)
[2016-10-07] MEDS: INSULIN ASPART SUPPLEMENTAL SCALE SQ SCH ×4 (05:28→21:56)
[2016-10-07] MEDS: hydrALAZINE HCL 10 MG TAB PO PRN (06:25)
[2016-10-07 08:00] VITALS: BP 195/85; PULSE 59; RESP 18; TEMP 97.6; O2SAT 95
[2016-10-07] MEDS: DOCUSATE SODIUM 50 MG/SENNA 8.6 MG TAB PO SCH ×2 (08:49→22:01)
[2016-10-07] MEDS: PREGABALIN 100 MG CAP PO SCH ×2 (08:50→21:59)
[2016-10-07] MEDS: NYSTATIN 100,000 U/GM PWD 15 GM BTL TOPICAL SCH ×2 (08:50→22:00)
[2016-10-07] MEDS: predniSONE 10 MG TAB PO SCH ×2 (08:50→22:01)
[2016-10-07] MEDS: SODIUM CHLORIDE 0.9% FLUSH 10 ML FLUSH IV FLUSH SCH ×2 (08:50→22:01)
[2016-10-07 08:51] LABS: AUTOMATED NEUTROPHIL # 10.4 TH/MM3 (1.8-7.7); BASOPHIL % 0.1 % (0.0-2.0); EOSINOPHIL % 0.2 % (0.0-4.0); HEMATOCRIT 40.5 % (39.0-51.0); LYMPH % 12.5 % (9.0-44.0); LYMPHOCYTE # 1.6 TH/MM3 (1.0-4.8); MEAN CELL VOLUME 83.7 FL (80.0-100.0); MEAN CORPUSCULAR HEMOGLOBIN 26.5 PG (27.0-34.0); MEAN CORPUSCULAR HGB CONC 31.7 % (32.0-36.0); MONO % 6.2 % (0.0-8.0); PLATELET COUNT 194 TH/MM3 (150-450); RED BLOOD COUNT 4.84 MIL/MM3 (4.50-5.90); RED CELL DISTRIBUTION WIDTH 14.4 % (11.6-17.2); WHITE BLOOD COUNT 12.9 TH/MM3 (4.0-11.0)
[2016-10-07] MEDS: BUDESONIDE-FORMOTEROL 80/4.5 MCG INHALER INH SCH ×2 (08:51→22:00)
[2016-10-07] MEDS: INSULIN DETEMIR 100 UNITS/ML VIAL SQ SCH ×2 (08:51→21:57)
[2016-10-07 08:58] LABS: HEMO FLAGS AUTO DIFF
[2016-10-07] MEDS ORDERED: LISINOPRIL 5 MG TAB PO SCH ×2 (09:00→21:00)
[2016-10-07 09:17] LABS: BICARBONATE 25.9 MEQ/L (21.0-32.0); POTASSIUM 3.9 MEQ/L (3.5-5.1)
[2016-10-07] MEDS: VANCOMYCIN 1,500 MG/NS 500 ML IV SCH ×2 (10:04)
[2016-10-07 10:07] LABS: BANDS 2 % (0-6); METAMYELOCYTES 1 % (0-1); MYELOCYTES 2 % (0-0); NEUTROPHIL # MANUAL DIFF 11.2 TH/MM3 (1.8-7.7); POLYS (SEG NEUTROPHILS) 82 % (16-70); WBC DIFF SAMPLE 100
[2016-10-07 10:08] LABS: PLATELET ESTIMATE SMEAR NORMAL (NORMAL); PLATELET MORPHOLOGY ENLARGED (NORMAL); SCAN/DIFF FINAL DIFF MANUAL
--- NOTE | 2016-10-07 11:00 | HHI.FPPN ---
Subjective Remarks Patient seen and examined this morning. No acute events over night. He states that he is doing "well enough." He is frustrated with still being in the hospital. He does not believe there is any change in the swelling of his genitals. He has been able to void now that he is no longer on the [place], however he complains that the stream is messy and uneven due to the swelling. No pain, change in color, change in volume, change in smell. No complaints of nausea, vomiting, fever, chills, chest pain, shortness of breath, change in bowel habits. Objective Vitals Vital Signs Date Time Temp Pulse Resp B/P Pulse Ox O2 Delivery O2 Flow Rate FiO2 10/07/16 08:00 97.6 59 18 195/85 95 10/07/16 04:00 97.5 53 18 182/85 96 10/07/16 01:04 97.5 56 18 167/86 100 10/06/16 21:03 97.6 62 18 176/82 95 10/06/16 15:56 97.4 60 20 152/74 98 10/06/16 12:00 97.7 54 20 158/77 99 I/O 10/06/16 10/06/16 10/06/16 10/07/16 10/07/16 10/07/16 07:00 15:00 23:00 07:00 15:00 23:00 Intake Total 240 ml 240 ml Balance 240 ml 240 ml Intake Oral 240 ml 240 ml # Voids 4 4 # Bowel Movements 1 1 Result Diagram: 10/07/16 0740 10/07/16 0740 Objective Remarks GENERAL: Well-nourished, well-developed patient. No acute distress. SKIN: Warm and dry. No rash. EYES: No scleral icterus. No injection or drainage. PERRLA. EOMI. HENT: Normocephalic. Atraumatic. MMM. NECK: No visible JVD or lymphadenopathy. CARDIOVASCULAR: Regular rate and rhythm, normal S1/S2, No M/R/G RESPIRATORY: Expiratory wheezes at the bases, improved. Equal bilaterally. No crackles or rhonchi. GASTROINTESTINAL: Abdomen non tender, soft, mildly distended, +BS. : Scrotum and shaft of penis are erythematous and edematous, with some improvement in swelling from previous exams. Scrotum and penis tender to light touch. NEURO/PSYCH: Afocal. Awake, alert, and oriented x3. Medications and IVs Current Medications Medications (Trade) Dose Ordered Sig/Lela Route Start Time Stop Time Status Last Admin (NS Flush) 2 ml BID IV FLUSH 09/25/16 21:00 10/07/16 08:50 Sodium Chloride 2 ml 2 ml UNSCH PRN IV FLUSH 09/25/16 17:00 Sodium Chloride 1,000 ml @ 125 mls/hr Q8H IV 09/25/16 17:00 Hold 09/29/16 14:30 (Vancomycin Consult Pharmacy) 0 ml @ 0 mls/hr UNSCH OTHER 09/25/16 17:00 ([place] 5-325 Mg) 1 tab Q4H PRN PO 09/25/16 17:00 10/07/16 11:45 (Lovenox Inj) 40 mg Q24H SQ 09/25/16 18:00 10/06/16 16:52 (Morphine Inj) 4 mg Q3H PRN IV 09/25/16 17:15 10/03/16 10:22 (Narcan Inj) 0.4 mg UNSCH PRN IV 09/25/16 17:15 (Symbicort 80-4.5 Mcg Inh) 1 puff Q12HR INH 09/25/16 21:00 10/07/16 08:51 (Lyrica) 200 mg BID PO 09/25/16 21:00 10/07/16 08:50 (Flomax) 0.4 mg HS PO 09/25/16 21:00 10/06/16 20:42 (Restoril) 15 mg HS PRN PO 09/27/16 00:30 09/29/16 21:11 Acetaminophen/ Hydrocodone Bitart 1 tab 1 tab Q4H PRN PO 09/29/16 13:00 10/07/16 05:27 Diltiazem HCl 125 mg/Sodium Chloride 125 ml @ 0 mls/hr TITRATE IV 09/30/16 14:45 09/30/16 15:24 (KCl 20 Meq Premix Inj) 100 ml @ 50 mls/hr Q2H IV 09/30/16 17:00 09/30/16 20:59 Hold (Levemir Inj) 24 units BID SQ 10/01/16 09:00 10/07/16 08:51 (D50w (Vial) Inj) 50 ml UNSCH PRN IV 10/01/16 07:15 Glucagon 1 mg 1 mg UNSCH PRN OTHER 10/01/16 07:15 (Vancomycin Inj/ NS 500 ml Inj) 515 ml @ 257.5 mls/ hr Q24H IV 10/03/16 11:00 10/07/16 10:04 (Apresoline) 10 mg Q6H PRN PO 10/03/16 16:00 10/07/16 06:25 (Mycostatin Powder) 1 applic Q12HR TOPICAL 10/04/16 09:00 10/07/16 08:50 (Katie-Colace) 1 tab BID PO 10/04/16 09:15 10/06/16 06:27 (Epsom Salt) 454 gm Q24H PRN OTHER 10/05/16 15:00 (Deltasone) 30 mg BID PO 10/06/16 21:00 10/07/16 08:50 Lisinopril 5 mg 5 mg BID PO 10/07/16 21:00 (INVanz INJ/NS Inj) 100 ml @ 200 mls/hr Q24H IV 10/07/16 15:00 A/P Assessment and Plan 51-year-old male with history of diabetes and COPD presents with penile and testicle swelling after I&D. Failed outpatient antibiotics. Admitted for IV antibiotics and consultation to urologist. Second I&D in hospital. Discharge Planning Pending improvement of infection and urology recommendations. Problem List: (1) Cellulitis of scrotum Status: Acute Plan: Mild improvement in the swelling. Patient still complaining of severe pain and does not feel that the swelling has improved. He is irritated at this time with a progress of his infection/hospitalization. -Urology consulted -appreciate recs and intervention -Pt known to Dr. Herrera -Continue Vancomycin q12H, pharmacy consult -Continue Zosyn 3.375g q6h -MRI pelvis completed, s/p I&D 09/30 -Blood culture no growth to date (2) Diabetes Status: Acute Plan: History of chronic diabetes on insulin. Patient is on Levemir 24 units twice a day and Humalog sliding scale 3 times a day. -Levemir 24 units BID, pt is now on IV steroids which will impact blood sugar. -Low dose sliding scale insulin -Monitor blood glucose levels -May need to adjust long-acting insulin pending glucose levels (3) HAYLEY (acute kidney injury) Status: Acute Plan: Creatinine overall downtrending, continue to monitor. -Nephrology consulted, appreciate recommendations. -Possibly due to medication -Avoid nephrotoxic medications and renally dose medications as indicated (4) UTI (urinary tract infection) Status: Acute Plan: Urine culture Escherichia coli Antibiotics as above (5) Abdominal distension Status: Resolved Plan: Abdominal distension at baseline -Continue current bowel regimen -Abdominal X-ray with significant amount of stool and gas, otherwise negative (6) COPD (chronic obstructive pulmonary disease) Status: Chronic Plan: History of chronic COPD, on nebulizer, Symbicort. Shortness of breath also likely exacerbated by CHF. Breathing stable -PO steroids: Prednisone 30 mg PO BID -Continue Symbicort -DuoNeb's every 4 hours -Albuterol PRN -Continue to monitor (7) Hypertension Status: Chronic Plan: History of hypertension. Increased over night -lisinopril increased to 10mg bid, continue to monitor -Hydralazine PRN (8) Tobacco abuse Status: Chronic Plan: Pt smoking 1 PPD, not interested in quitting at this time -Counseled on risks of smoking and benefits of quitting (9) FEN Status: Acute Plan: Fluids: Taking in adequate PO Electrolytes: continue to monitor replace according Nutrition: Diabetic diet DVT ppx: Lovenox Problem Qualifiers (1) Diabetes: Qualified Code: E11.59 - Type 2 diabetes mellitus with other circulatory complication, with long-term current use of insulin (2) UTI (urinary tract infection): Qualified Code: N30.00 - Acute cystitis without hematuria (3) COPD (chronic obstructive pulmonary disease): Qualified Code: J44.9 - Chronic obstructive pulmonary disease, unspecified COPD type (4) Hypertension: Qualified Code: I10 - Essential hypertension Ben Preciado MD R1 Oct 07, 2016 11:00
--- NOTE | 2016-10-07 11:06 | HHI.PR ---
Subjective Patient symptoms today Pt seen and examined. Feeling ok. No c/o pain at present. Objective Vital Signs Vital Signs Date Time Temp Pulse Resp B/P Pulse Ox O2 Delivery O2 Flow Rate FiO2 10/07/16 08:00 Room Air 10/07/16 08:00 97.6 59 18 195/85 95 10/07/16 04:00 97.5 53 18 182/85 96 10/07/16 01:04 97.5 56 18 167/86 100 10/06/16 21:03 97.6 62 18 176/82 95 10/06/16 15:56 97.4 60 20 152/74 98 10/06/16 12:00 97.7 54 20 158/77 99 Intake & Output 10/07/16 10/07/16 07:00 19:00 # Voids 4 # Bowel Movements 1 Result Diagram: 10/07/16 0740 10/07/16739 Objective Remarks Scrotum: erythema/painful to touch Scrotum elevated with towel placed underneath [place] with some sediment in urine 09/28 Scrotum: erythema improving; still with swelling Scrotum elevated with towel placed underneath [place] with some sediment in urine 09/29 Scrotum: erythema improving; still with swelling; scrotal abcess on MRI [place] with sediment 10/01 Abd:soft,nt,nt. Scrotal wound: packing changed at bedside; Cellulitis improved. Swellling still present [place] with sediment 10/04 Abd:soft,nt,nd Wound: some drainage noted. Packing in place : scrotal swelling with fungal rash present 10/05 Abd:soft,nt,nd Scrotal swelling improving 10/06 Abd:soft,nt,nd : worsening erythema and swelling today Packing in place Nystatin powder noted 10/07 Abd:soft,nt,nd Scrotal cellulitis improved since yesterday but still with edema Medications and IVs Current Medications Medications (Trade) Dose Ordered Sig/Lela Route Start Time Stop Time Status Last Admin (NS Flush) 2 ml BID IV FLUSH 09/25/16 21:00 10/07/16 08:50 Sodium Chloride 2 ml 2 ml UNSCH PRN IV FLUSH 09/25/16 17:00 Sodium Chloride 1,000 ml @ 125 mls/hr Q8H IV 09/25/16 17:00 Hold 09/29/16 14:30 (Vancomycin Consult Pharmacy) 0 ml @ 0 mls/hr UNSCH OTHER 09/25/16 17:00 ([place] 5-325 Mg) 1 tab Q4H PRN PO 09/25/16 17:00 10/06/16 16:52 Enoxaparin Sodium 40 mg 40 mg Q24H SQ 09/25/16 18:00 10/06/16 16:52 (Zosyn 3.375 Gm Premix) 50 ml @ 100 mls/hr Q6H IV 09/25/16 22:00 10/07/16 10:04 (Morphine Inj) 4 mg Q3H PRN IV 09/25/16 17:15 10/03/16 10:22 (Narcan Inj) 0.4 mg UNSCH PRN IV 09/25/16 17:15 (Symbicort 80-4.5 Mcg Inh) 1 puff Q12HR INH 09/25/16 21:00 10/07/16 08:51 (Lyrica) 200 mg BID PO 09/25/16 21:00 10/07/16 08:50 (Flomax) 0.4 mg HS PO 09/25/16 21:00 10/06/16 20:42 (Restoril) 15 mg HS PRN PO 09/27/16 00:30 09/29/16 21:11 Acetaminophen/ Hydrocodone Bitart 1 tab 1 tab Q4H PRN PO 09/29/16 13:00 10/07/16 05:27 Diltiazem HCl 125 mg/Sodium Chloride 125 ml @ 0 mls/hr TITRATE IV 09/30/16 14:45 09/30/16 15:24 (KCl 20 Meq Premix Inj) 100 ml @ 50 mls/hr Q2H IV 09/30/16 17:00 09/30/16 20:59 Hold (Levemir Inj) 24 units BID SQ 10/01/16 09:00 10/07/16 08:51 (D50w (Vial) Inj) 50 ml UNSCH PRN IV 10/01/16 07:15 Glucagon 1 mg 1 mg UNSCH PRN OTHER 10/01/16 07:15 (Vancomycin Inj/ NS 500 ml Inj) 515 ml @ 257.5 mls/ hr Q24H IV 10/03/16 11:00 10/07/16 10:04 (Apresoline) 10 mg Q6H PRN PO 10/03/16 16:00 10/07/16 06:25 (Mycostatin Powder) 1 applic Q12HR TOPICAL 10/04/16 09:00 10/07/16 08:50 (Katie-Colace) 1 tab BID PO 10/04/16 09:15 10/06/16 06:27 (Epsom Salt) 454 gm Q24H PRN OTHER 10/05/16 15:00 (Deltasone) 30 mg BID PO 10/06/16 21:00 10/07/16 08:50 (Prinivil) 5 mg DAILY PO 10/07/16 09:00 10/07/16 08:49 Assessment and Plan Assessment and Plan 61 y.o male with 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 coli UTI Continue IV abx Maintain escamilla for now MRI in AM to evaluate presence of fistula 09/29 61 y.o male with scrotal cellulitis and scrotal abcess on MRI For I&D in OR tomorrow 10/01 61 y.o male s/p I&D of scrotal abcess without evidence of urethral cutaneous fistula Continue IV ABX Continue [place] drainage; Void trial next week prior to discharge. Daily packing changes Left upper arm US today for swelling. 10/04 61 y.o male s/p I&D of scrotal abcess without evidence of urethral cutaneous fistula Continue IV ABX Nystatin powder for fungal rash Daily Sitz baths with Epson Salts D/C in the next few days 10/05 61 y.o male s/p I&D of scrotal abcess without evidence of urethral cutaneous fistula Continue IV ABX Nystatin powder for fungal rash Daily Sitz baths with Epson Salts Void trial today 10/06 61 y.o male s/p I&D of scrotal abcess without evidence of urethral cutaneous fistula on both MRI and RUG Continue IV ABX Nystatin powder for fungal rash Daily Sitz baths with Epson Salts Continue Flomax Consider PICC line placement for IV abx as outpt 10/07 61 y.o male s/p I&D of scrotal abcess without evidence of urethral cutaneous fistula on both MRI and RUG Continue IV ABX Nystatin powder for fungal rash Daily Sitz baths with Epson Salts Continue Flomax Recommend ID consult PICC line placement Juan Ramon Herrera DO Oct 07, 2016 11:05
[2016-10-07] MEDS: ACETAMINOPHEN/HYDROcodone 325 MG/5 MG TAB PO PRN (11:45)
[2016-10-07 12:00] VITALS: BP 175/80; PULSE 48; RESP 18; TEMP 97.3; O2SAT 94
--- NOTE | 2016-10-07 12:06 | HHI.NPPN ---
Subjective History of Present Illness 61 year old with Diabetes, ARF, Afib, groin infection Additional Remarks Patient is alert, has headache and feeling dizzy, breathing is better. Review of Systems General Constitutional: Fatigue Objective Data Data 10/06/16 10/07/16 19:00 07:00 Intake Total 240 ml Balance 240 ml Intake Oral 240 ml # Voids 4 4 # Bowel Movements 1 1 Vital Signs Date Time Temp Pulse Resp B/P Pulse Ox O2 Delivery O2 Flow Rate FiO2 10/07/16 08:00 Room Air 10/07/16 08:00 97.6 59 18 195/85 95 10/07/16 04:00 97.5 53 18 182/85 96 10/07/16 01:04 97.5 56 18 167/86 100 10/06/16 21:03 97.6 62 18 176/82 95 10/06/16 15:56 97.4 60 20 152/74 98 -: 10/07/16 0740 10/07/16 0740 Physical Exam General Appearance: Well Developed, Well Nourished, No Acute Distress, Comfortable Neck Neck Exam: Neck Supple Pulmonary Resp Exam: Clear Bilaterally, Breath Sounds Equal Cardiology CV Exam: Regular, Normal Sinus Rhythm Gastrointestinal/Abdomen GI Exam: Soft, Non-Tender, Bowel Sounds Present Extremeties Extremities Exam: No Edema Neurologic Neuro Exam: Alert, Awake, Oriented Psychiatric Psych Exam: Appropriate Responses Assessment/Plan Problem List: (1) Acute renal failure Plan: cr declined to 1.[address] Charles to follow on Tuesday (2) Diabetes type 2, uncontrolled Plan: stable (3) UTI (urinary tract infection) Plan: E coli on Zosyn (4) Cellulitis of scrotum Plan: urology following on Vanco Plan Patient has been non oliguric. Creatinine is improving, On Vancomycin, follow the Vanco. level. Avoid Nephrotoxins. BP is elevated, started on Lisinopril, will increase the dose. Creatinine is stable, K is normal. Has Acute kidney injury, can have PICC line if needed. Problem Qualifiers (1) Diabetes type 2, uncontrolled: (2) UTI (urinary tract infection): Qualified Code: N30.00 - Acute cystitis without hematuria Alex Charles MD Oct 07, 2016 12:06
--- NOTE | 2016-10-07 12:51 | PD.CONS ---
History of Present Illness Service Infectious disease Consult Requested By Dr. Herrera Reason for Consult Evaluate patient with scrotal cellulitis, has persistent redness and swelling, as well as leukocytosis Primary Care Physician Edenilson Hoang MD Diagnoses: History of Present Illness Patient seen and examined. Records reviewed. Patient is a 61-year-old male with history of diabetes, has had problem with recurrent cellulitis. 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 It was removed since the fistula seemed to have close but apparently he's had problem with recurrent scrotal cellulitis. Forced end of August he had scrotal abscess that was drained. Culture grew normal macario. He was put on Bactrim. Recently he started having redness again , and he presented to the hospital for further evaluation and treatment. He also had some urinary complaints. Urine culture grew Escherichia coli. Imaging studies revealed evidence of scrotal abscess, and the patient underwent drainage on September 30. Postoperatively he had some bronchospasm problem as well as atrial fibrillation with RVR. He was in the intensive care unit, and was transferred out. Respiratory status stabilized, and arrhythmia resolved. He is afebrile. Patient had a Broderick, and it was removed yesterday. He is voiding without any problem. He still complains of some pain in his scrotum with swelling. Infectious disease consultation has been requested to evaluate the patient with persistent swelling and redness in his scrotum. He is currently getting IV vancomycin and Zosyn. Review of Systems Constitutional: COMPLAINS OF: Fatigue, DENIES: Fever, Chills Eyes: DENIES: Eye pain Ears, nose, mouth, throat: DENIES: Nasal discharge, Oral lesions, Throat pain, Ear Pain, Sinus Pain Respiratory: DENIES: Cough, Sputum production, Shortness of breath Cardiovascular: DENIES: Chest pain Gastrointestinal: DENIES: Abdominal pain, Diarrhea, Nausea, Vomiting, Difficulty Swallowing Genitourinary: DENIES: Hematuria, Dysuria Musculoskeletal: DENIES: Joint pain, Joint Swelling Integumentary: DENIES: Rash Neurologic: DENIES: Headache Psychiatric: DENIES: Hallucinations Past Family Social History Allergies: Coded Allergies: Gabapentin (Verified Adverse Reaction, Severe, Chest gets tight and he feels lightheaded., 09/25/16) Lantus (Verified Adverse Reaction, Severe, Patient claims severe burning with even low doses. , 09/25/16) Aspirin (Verified Adverse Reaction, Intermediate, UPSET STOMACH Can take coated , 09/25/16) PATIENT DENIES ALLERGY, SAYS IF HE TAKES UNCOATED ASA HE GETS UPSET STOMACH. 07/18/13 TM *MDRO Multi-Drug Resistant Organism (Verified Adverse Reaction, Unknown, ) MDR-E.Coli (urine) - 02/03/16 & 09/30/16 Past Medical History DM PAD HTN COPD Scrotal abscess Past Surgical History I&D of scrotal abscess 09/02/162007 - Perianal Abscess; Tx'd by Dr Davidson Reconstruction of urethral cutaneous fistula TURP LE stents due to PVD Suprapubic catheter s/p removal Active Ordered Medications Murdock Albuterol Cardizem Lovenox Hydralazine Insulin Prinivil Morphine Zosyn Prednisone Lyrica Katie-Colace Flomax Restoril Vancomycin Family History Non-contributory Social History Smokes 1 ppd No ETOH abuse No illicit drugs Physical Exam Vital Signs Vital Signs Date Time Temp Pulse Resp B/P Pulse Ox O2 Delivery O2 Flow Rate FiO2 10/07/16 08:00 Room Air 10/07/16 08:00 97.6 59 18 195/85 95 10/07/16 04:00 97.5 53 18 182/85 96 10/07/16 01:04 97.5 56 18 167/86 100 10/06/16 21:03 97.6 62 18 176/82 95 10/06/16 15:56 97.4 60 20 152/74 98 Physical Exam GENERAL: Patient is an obese, well-developed male, awake and alert, not in respiratory distress. SKIN: Warm and dry. No generalized rash, no ecchymoses and no evidence of embolic lesions. HEAD: Atraumatic. Normocephalic. No temporal wasting, or tenderness. EYES: Rains conjunctiva. No petechia or hemorrhage. Pupils equal, round and reactive to light. Extraocular movements full and intact. No scleral icterus. No injection or drainage. EARS, NOSE AND THROAT: Nose without bleeding or purulent nasal discharge. No sinus tenderness. Mucous membranes pink and moist. No oral lesions noted. No exudate. No oral thrush. NECK: Trachea midline. Supple and not tender, no meningeal signs CARDIOVASCULAR: Regular rate and rhythm. No murmurs, rubs or gallops heard RESPIRATORY: Clear to auscultation. Breath sounds equal bilaterally. No rales , wheezing or rhonchi ABDOMEN: Globular, mildly distended, not tender. Bowel sounds present and normoactive. No guarding. No rebound. No organomegaly. GENITOURINARY: Has erythema in scrotum,, worse on R than L, and has induration on R side, with mild tenderness, no fluctuance. Has an area posteriorly in R scrotum with linear opening that is about 1 cm long wth small amount of light yellow drainage. No penile drainage, penile shaft mild pink color, no induration EXTREMITIES: No clubbing, cyanosis, or edema.No joint effusion, has good ROM. No calf tenderness. Well perfused and warm. NEUROLOGICAL: Awake and alert. Cranial nerves grossly intact. Motor grossly within normal limits. PSYCHIATRIC: Normal affect, calm and cooperative. LINE: No evidence of infection Laboratory Laboratory Tests Test 10/07/16 07:40 White Blood Count 12.9 Red Blood Count 4.84 Hemoglobin 12.8 Hematocrit 40.5 Mean Corpuscular Volume 83.7 Mean Corpuscular Hemoglobin 26.5 Mean Corpuscular Hemoglobin 31.7 Concent Red Cell Distribution Width 14.4 Platelet Count 194 Mean Platelet Volume 9.2 Neutrophils (%) (Auto) 81.0 Lymphocytes (%) (Auto) 12.5 Monocytes (%) (Auto) 6.2 Eosinophils (%) (Auto) 0.2 Basophils (%) (Auto) 0.1 Neutrophils # (Auto) 10.4 Lymphocytes # (Auto) 1.6 Monocytes # (Auto) 0.8 Eosinophils # (Auto) 0.0 Basophils # (Auto) 0.0 CBC Comment AUTO DIFF Differential Total Cells 100 Counted Neutrophils % (Manual) 82 Band Neutrophils % 2 Lymphocytes % 12 Monocytes % 1 Neutrophils # (Manual) 11.2 Metamyelocytes 1 Myelocytes 2 Differential Comment FINAL DIFF MANUAL Platelet Estimate NORMAL Platelet Morphology Comment ENLARGED Red Cell Morphology Comment NORMAL Sodium Level 141 Potassium Level 3.9 Chloride Level 106 Carbon Dioxide Level 25.9 Anion Gap 9 Blood Urea Nitrogen 36 Creatinine 1.32 Estimat Glomerular Filtration 55 Rate Random Glucose 136 Calcium Level 8.6 Result Diagram: 10/07/16 0740 10/07/16 0740 Imaging RADIOLOGY STUDIES/FILMS REVIEWED Abdomen X-Ray 10/03/16 0000 Signed Impressions: Service Date/Time: Monday, October 03, 2016 10:10 - CONCLUSION: Moderate stool and bowel gas throughout the colon otherwise negative. Valentin Kendrick MD FACR Renal Ultrasound 10/01/16 0000 Signed Impressions: Service Date/Time: Saturday, October 01, 2016 22:48 - CONCLUSION: Normal examination. Errol Ellison MD Chest X-Ray 09/30/16 Signed Impressions: Service Date/Time: September 15:23 - CONCLUSION: Bibasilar airspace disease and probable associated effusions. Bertin Estrada MD Pelvis MRI 09/27/16 Signed Impressions: Service Date/Time: Tuesday, September 27, 2016 14:38 - CONCLUSION: 1. 1.9 x 2.3 x 1.0 cm subcutaneous enhancing fluid collection consistent with subcutaneous abscess within the right scrotum. This appears to communicate with the skin surface. Clinical correlation is recommended. 2. Diffuse scotal swelling. Daniel Dickerson MD Scrotum Ultrasound 09/25/16 Signed Impressions: Service Date/Time: Sunday, September 25, 2016 13:57 - CONCLUSION: Unremarkable study except for benign calcification involving the left testicle could be in the testicle itself or possibly outside of it. K. Adam Smith MD Pelvis CT 09/25/16 0000 Signed Impressions: Service Date/Time: Sunday, September 25, 2016 15:07 - CONCLUSION: 1. Air in the bladder could be acu genic or infectious. Urinalysis recommended. 2. Scrotal wall thickening. 3. Low lying right kidney. Flip Sandy MD Assessment and Plan Assessment and Plan IMPRESSION Scrotal abscess and cellulitis - S/P I and D, no C/S availabl - slow to improve UTI, E coli DM Renal insufficiency Episode of fluid overload, clinically better Episode of AF, better Persistent leukocytosis RECOMMENDATION UA and C/S Check bladder scan Change Zosyn to Invanz - Na load maybe adding to slow improvement of cellulitis and induration Also on Vanco Follow new C/S Monitor progress I will follow along with you Thank you for this consultation Discussed Condition With Explained plan to the patient Mary Pace MD Oct 07, 2016 12:51
[2016-10-07] MEDS ORDERED: MISCELLANEOUS PHARMACY INFORMATION XX PRN (13:15)
[2016-10-07] MEDS ORDERED: ASP: Other exception documentation: ( ) PRN (13:15)
[2016-10-07 16:00] VITALS: BP 160/77; PULSE 58; RESP 18; TEMP 98; O2SAT 94
[2016-10-07 16:04] LABS: BLOOD, URINE NEG (NEG); COMMENT (UR) CULTURE INDICATED; CULTURE IF INDICATED CULTURE INDICATED; GLUCOSE,URINE TRACE mg/dL (NEG); KETONE, URINE NEG (NEG); NITRITE,URINE NEG (NEG); SQUAMOUS EPITHELIAL CELL URINE <1 /hpf (0-5); URINE COLOR YELLOW (YELLW/STRAW)
[2016-10-07] MEDS: ERTAPENEM INJ 1,000 MG in SODIUM CHLORIDE 0.9% INJ 100 ML IV SCH (16:55)
[2016-10-07] MEDS: ENOXAPARIN SODIUM 40 MG/0.4 ML SYRINGE SQ SCH (16:58)
[2016-10-07 21:08] VITALS: BP 171/79; PULSE 54; RESP 18; TEMP 98.1; O2SAT 96
[2016-10-07] MEDS: LISINOPRIL 10 MG TAB PO SCH (22:00)
[2016-10-07] MEDS: TAMSULOSIN HCL 0.4 MG CAP PO SCH (22:01)
[2016-10-08 01:36] VITALS: BP 173/83; PULSE 68; RESP 18; TEMP 97.9; O2SAT 97
[2016-10-08 04:45] VITALS: BP 151/84; PULSE 65; RESP 18; TEMP 97.6; O2SAT 93
[2016-10-08] MEDS: INSULIN ASPART SUPPLEMENTAL SCALE SQ SCH ×3 (06:30→17:51)
[2016-10-08] MEDS: INSULIN DETEMIR 100 UNITS/ML VIAL SQ SCH (08:52)
[2016-10-08] MEDS: LISINOPRIL 10 MG TAB PO SCH (08:57)
[2016-10-08] MEDS: BUDESONIDE-FORMOTEROL 80/4.5 MCG INHALER INH SCH (08:58)
[2016-10-08] MEDS: predniSONE 10 MG TAB PO SCH (08:58)
[2016-10-08] MEDS: ACETAMINOPHEN/HYDROcodone 325 MG/5 MG TAB PO PRN ×2 (08:58→14:37)
[2016-10-08] MEDS: SODIUM CHLORIDE 0.9% FLUSH 10 ML FLUSH IV FLUSH SCH (08:58)
[2016-10-08] MEDS: PREGABALIN 100 MG CAP PO SCH (08:58)
[2016-10-08] MEDS: DOCUSATE SODIUM 50 MG/SENNA 8.6 MG TAB PO SCH (08:59)
[2016-10-08] MEDS: NYSTATIN 100,000 U/GM PWD 15 GM BTL TOPICAL SCH (08:59)
[2016-10-08 09:07] VITALS: BP 180/83; PULSE 71; RESP 16; TEMP 97.8; O2SAT 97
--- NOTE | 2016-10-08 09:21 | HHI.PR ---
Subjective Patient symptoms today Pt seen and examined. No pain. ID input appreciated. PICC line for today. Objective Vital Signs Vital Signs Date Time Temp Pulse Resp B/P Pulse Ox O2 Delivery O2 Flow Rate FiO2 10/08/16 09:12 Room Air 10/08/16 09:07 97.8 71 16 180/83 97 10/08/16 04:45 97.6 65 18 151/84 93 10/08/16 01:36 97.9 68 18 173/83 97 10/08/16 01:00 Room Air 10/07/16 21:08 98.1 54 18 171/79 96 10/07/16 16:00 98.0 58 18 160/77 94 10/07/16 12:00 97.3 48 18 175/80 94 Intake & Output 10/08/16 10/08/16 07:00 19:00 # Voids 3 # Bowel Movements 0 Result Diagram: 10/07/16 0740 10/07/16 0740 Objective Remarks Scrotum: erythema/painful to touch Scrotum elevated with towel placed underneath [place] with some sediment in urine 09/28 Scrotum: erythema improving; still with swelling Scrotum elevated with towel placed underneath [place] with some sediment in urine 09/29 Scrotum: erythema improving; still with swelling; scrotal abcess on MRI Escamilla with sediment 10/01 Abd:soft,nt,nt. Scrotal wound: packing changed at bedside; Cellulitis improved. Swellling still present Escam[place] with sediment 10/04 Abd:soft,nt,nd Wound: some drainage noted. Packing in place : scrotal swelling with fungal rash present 10/05 Abd:soft,nt,nd Scrotal swelling improving 10/06 Abd:soft,nt,nd : worsening erythema and swelling today Packing in place Nystatin powder noted 10/07 Abd:soft,nt,nd Scrotal cellulitis improved since yesterday but still with edema 10/08 Abd:soft,nt,nd Scrotal cellulitis still with edema No drainage from I&D site; looking better Medications and IVs Current Medications Medications (Trade) Dose Ordered Sig/Lela Route Start Time Stop Time Status Last Admin (NS Flush) 2 ml BID IV FLUSH 09/25/16 21:00 10/08/16 08:58 Sodium Chloride 2 ml 2 ml UNSCH PRN IV FLUSH 09/25/16 17:00 Sodium Chloride 1,000 ml @ 125 mls/hr Q8H IV 09/25/16 17:00 Hold 09/29/16 14:30 (Vancomycin Consult Pharmacy) 0 ml @ 0 mls/hr UNSCH OTHER 09/25/16 17:00 (Latexo 5-325 Mg) 1 tab Q4H PRN PO 09/25/16 17:00 10/08/16 08:58 (Lovenox Inj) 40 mg Q24H SQ 09/25/16 18:00 10/07/16 16:58 (Morphine Inj) 4 mg Q3H PRN IV 09/25/16 17:15 10/03/16 10:22 (Narcan Inj) 0.4 mg UNSCH PRN IV 09/25/16 17:15 (Symbicort 80-4.5 Mcg Inh) 1 puff Q12HR INH 09/25/16 21:00 10/08/16 08:58 (Lyrica) 200 mg BID PO 09/25/16 21:00 10/08/16 08:58 (Flomax) 0.4 mg HS PO 09/25/16 21:00 10/07/16 22:01 (Restoril) 15 mg HS PRN PO 09/27/16 00:30 09/29/16 21:11 Acetaminophen/ Hydrocodone Bitart 1 tab 1 tab Q4H PRN PO 09/29/16 13:00 10/07/16 21:59 Diltiazem HCl 125 mg/Sodium Chloride 125 ml @ 0 mls/hr TITRATE IV 09/30/16 14:45 09/30/16 15:24 (KCl 20 Meq Premix Inj) 100 ml @ 50 mls/hr Q2H IV 09/30/16 17:00 09/30/16 20:59 Hold (Levemir Inj) 24 units BID SQ 10/01/16 09:00 10/08/16 08:52 (D50w (Vial) Inj) 50 ml UNSCH PRN IV 10/01/16 07:15 Glucagon 1 mg 1 mg UNSCH PRN OTHER 10/01/16 07:15 (Vancomycin Inj/ NS 500 ml Inj) 515 ml @ 257.5 mls/ hr Q24H IV 10/03/16 11:00 10/07/16 10:04 (Apresoline) 10 mg Q6H PRN PO 10/03/16 16:00 10/07/16 06:25 (Mycostatin Powder) 1 applic Q12HR TOPICAL 10/04/16 09:00 10/08/16 08:59 (Katie-Colace) 1 tab BID PO 10/04/16 09:15 10/07/16 22:01 (Epsom Salt) 454 gm Q24H PRN OTHER 10/05/16 15:00 Prednisone 30 mg 30 mg BID PO 10/06/16 21:00 10/08/16 08:58 (INVanz INJ/NS Inj) 100 ml @ 200 mls/hr Q24H IV 10/07/16 15:00 10/07/16 16:55 (Prinivil) 10 mg BID PO 10/07/16 21:00 10/08/16 08:57 Assessment and Plan Assessment and Plan 61 y.o male with 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 coli UTI Continue IV abx Maintain escamilla for now MRI in AM to evaluate presence of fistula 09/29 61 y.o male with scrotal cellulitis and scrotal abcess on MRI For I&D in OR tomorrow 10/01 61 y.o male s/p I&D of scrotal abcess without evidence of urethral cutaneous fistula Continue IV ABX Continue Escamilla drainage; Void trial next week prior to discharge. Daily packing changes Left upper arm US today for swelling. 10/04 61 y.o male s/p I&D of scrotal abcess without evidence of urethral cutaneous fistula Continue IV ABX Nystatin powder for fungal rash Daily Sitz baths with Epson Salts D/C in the next few days 10/05 61 y.o male s/p I&D of scrotal abcess without evidence of urethral cutaneous fistula Continue IV ABX Nystatin powder for fungal rash Daily Sitz baths with Epson Salts Void trial today 10/06 61 y.o male s/p I&D of scrotal abcess without evidence of urethral cutaneous fistula on both MRI and RUG Continue IV ABX Nystatin powder for fungal rash Daily Sitz baths with Epson Salts Continue Flomax Consider PICC line placement for IV abx as outpt 10/07 61 y.o male s/p I&D of scrotal abcess without evidence of urethral cutaneous fistula on both MRI and RUG Continue IV ABX Nystatin powder for fungal rash Daily Sitz baths with Epson Salts Continue Flomax Recommend ID consult PICC line placement 10/08 61 y.o male s/p I&D of scrotal abcess without evidence of urethral cutaneous fistula on both MRI and RUG Continue IV ABX per ID-ID input appreciated Nystatin powder for fungal rash Daily Sitz baths with Epson Salts Continue Flomax PICC line placement for today. Juan Ramon Herrera DO Oct 08, 2016 09:21
[2016-10-08] MEDS: VANCOMYCIN 1,500 MG/NS 500 ML IV SCH ×2 (11:15)
[2016-10-08 12:24] VITALS: BP 170/80; PULSE 57; RESP 16; TEMP 97.5; O2SAT 100
--- NOTE | 2016-10-08 14:08 | HHI.FF ---
Infusion Therapy Location of Infusion Therapy: Home [facility] IV Infusion Order Patient Information Patient Weight 87 kg Diagnosis: Diagnosis Scrotal abscess, uti Coded Allergies: Gabapentin (Verified Adverse Reaction, Severe, Chest gets tight and he feels lightheaded., 09/25/16) Lantus (Verified Adverse Reaction, Severe, Patient claims severe burning with even low doses. , 09/25/16) Aspirin (Verified Adverse Reaction, Intermediate, UPSET STOMACH Can take coated , 09/25/16) PATIENT DENIES ALLERGY, SAYS IF HE TAKES UNCOATED ASA HE GETS UPSET STOMACH. 07/18/13 TM *MDRO Multi-Drug Resistant Organism (Verified Adverse Reaction, Unknown, ) MDR-E.Coli (urine) - 02/03/16 & 09/30/16 Administer Medication Ertapenem 1 gram IV q 24 hours Stop Treatment: Oct 23, 2016 Additional Information Venous access: PICC Line Additional Instructions [x] Peripheral flush and dressing changes per protocol [x] Implanted port and central line patrolman: * Implanted port: 10 ml Normal Saline followed by 5 ml Heparin 100 units/ml Heparin flush after each use and monthly to maintain. [] May leave port accessed during therapy. [] May leave peripheral site accessed for duration of therapy. [x] If patient has SOB or respiratory distress, check oxygen saturation. If less than 90% or clinical signs of respiratory distress, administer oxygen at 2 L/min. via nasal cannula and notify physician. [x] Anaphylaxis/Reaction orders: * Stop infusion. * Keep IV line open with saline flush. * Notify physician. * Monitor vital signs every 15 minutes until symptoms resolve. * Check Oxygen saturation; Oxygen at 2 L/min. via nasal cannula if less than 90% or clinical signs of respiratory distress. * Administer diphenhydramine (Benadryl) 25 mg IV STAT, (unless patient has received as pre-med). May repeat once, if necessary. * Solu-Cortef 250 mg IVP over 30-60 seconds, use 100 mg vials for each dissolution. * Epinephrine (1mg/1 ml) 0.3 mg subcutaneously or IVP now with any signs of respiratory distress. * Check with physician for new additional pre-med orders if patient is re- challenged or re-treated. [x] May remove PICC line when treatment complete, after confirming with Physician. [x] If the patient is admitted to the hospital, the ED, or transferred via [facility] , complete transfer form including medication reconciliation order sheet. Laboratory Tests Weekly Labs: CBC w/diff, Creatinine (labs weekly) Mary Pace MD Oct 08, 2016 14:08
[2016-10-08] MEDS: ERTAPENEM INJ 1,000 MG in SODIUM CHLORIDE 0.9% INJ 100 ML IV SCH (14:17)
--- NOTE | 2016-10-08 14:23 | HHI.IDPN ---
Subjective Subjective Remarks Patient is a 61-year-old male with history of diabetes, has had problem with recurrent cellulitis. 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 It was removed since the fistula seemed to have close but apparently he's had problem with recurrent scrotal cellulitis. Forced end of August he had scrotal abscess that was drained. Culture grew normal macario. He was put on Bactrim. Recently he started having redness again , and he presented to the hospital for further evaluation and treatment. He also had some urinary complaints. Urine culture grew Escherichia coli. Imaging studies revealed evidence of scrotal abscess, and the patient underwent drainage on September 30. Postoperatively he had some bronchospasm problem as well as atrial fibrillation with RVR. He was in the intensive care unit, and was transferred out. Respiratory status stabilized, and arrhythmia resolved. He is afebrile. Patient had a Broderick, and it was removed yesterday. He is voiding without any problem. He still complains of some pain in his scrotum with swelling. Infectious disease consultation has been requested to evaluate the patient with persistent swelling and redness in his scrotum. He is currently getting IV vancomycin and Zosyn. Notes reviewed Still with pain in scrotum, not worse Repeat UA better, C/S with coag Neg staph likely contaminant Antibiotics Invanz vancomycin Past Medical History DM PAD HTN COPD Scrotal abscess Past Surgical History I&D of scrotal abscess 09/02/162007 - Perianal Abscess; Tx'd by Dr Davidson Reconstruction of urethral cutaneous fistula TURP LE stents due to PVD Suprapubic catheter s/p removal Allergies: Coded Allergies: Gabapentin (Verified Adverse Reaction, Severe, Chest gets tight and he feels lightheaded., 09/25/16) Lantus (Verified Adverse Reaction, Severe, Patient claims severe burning with even low doses. , 09/25/16) Aspirin (Verified Adverse Reaction, Intermediate, UPSET STOMACH Can take coated , 09/25/16) PATIENT DENIES ALLERGY, SAYS IF HE TAKES UNCOATED ASA HE GETS UPSET STOMACH. 07/18/13 TM *MDRO Multi-Drug Resistant Organism (Verified Adverse Reaction, Unknown, ) MDR-E.Coli (urine) - 02/03/16 & 09/30/16 Objective . Vital Signs Date Time Temp Pulse Resp B/P Pulse Ox O2 Delivery O2 Flow Rate FiO2 10/08/16 12:24 97.5 57 16 170/80 100 10/08/16 09:12 Room Air 10/08/16 09:07 97.8 71 16 180/83 97 10/08/16 04:45 97.6 65 18 151/84 93 10/08/16 01:36 97.9 68 18 173/83 97 10/08/16 01:00 Room Air 10/07/16 21:08 98.1 54 18 171/79 96 10/07/16 16:00 98.0 58 18 160/77 94 10/07/16 10/07/16 10/08/16 15:00 23:00 07:00 Intake Total 240 ml Output Total 300 ml Balance -60 ml Intake Oral 240 ml Output Urine Total 300 ml # Voids 3 # Bowel Movements 0 . Laboratory Tests Test 10/07/16 07:40 White Blood Count 12.9 TH/MM3 Red Blood Count 4.84 MIL/MM3 Hemoglobin 12.8 GM/DL Hematocrit 40.5 % Mean Corpuscular Volume 83.7 FL Mean Corpuscular Hemoglobin 26.5 PG Mean Corpuscular Hemoglobin 31.7 % Concent Red Cell Distribution Width 14.4 % Platelet Count 194 TH/MM3 Mean Platelet Volume 9.2 FL Neutrophils (%) (Auto) 81.0 % Lymphocytes (%) (Auto) 12.5 % Monocytes (%) (Auto) 6.2 % Eosinophils (%) (Auto) 0.2 % Basophils (%) (Auto) 0.1 % Neutrophils # (Auto) 10.4 TH/MM3 Lymphocytes # (Auto) 1.6 TH/MM3 Monocytes # (Auto) 0.8 TH/MM3 Eosinophils # (Auto) 0.0 TH/MM3 Basophils # (Auto) 0.0 TH/MM3 CBC Comment AUTO DIFF Differential Total Cells 100 Counted Neutrophils % (Manual) 82 % Band Neutrophils % 2 % Lymphocytes % 12 % Monocytes % 1 % Neutrophils # (Manual) 11.2 TH/MM3 Metamyelocytes 1 % Myelocytes 2 % Differential Comment FINAL DIFF MANUAL Platelet Estimate NORMAL Platelet Morphology Comment ENLARGED Red Cell Morphology Comment NORMAL Laboratory Tests Test 10/07/16 07:40 Sodium Level 141 MEQ/L Potassium Level 3.9 MEQ/L Chloride Level 106 MEQ/L Carbon Dioxide Level 25.9 MEQ/L Anion Gap 9 MEQ/L Blood Urea Nitrogen 36 MG/DL Creatinine 1.32 MG/DL Estimat Glomerular Filtration 55 ML/MIN Rate Random Glucose 136 MG/DL Calcium Level 8.6 MG/DL Microbiology Date/Time Procedure Status Source Growth 10/07/16 14:40 Urine Culture - Preliminary Resulted Urine Clean Catch Staph Sp Coagulase Negative Imaging Last Impressions Abdomen X-Ray 10/03/16 0000 Signed Impressions: Service Date/Time: Monday, October 03, 2016 10:10 - CONCLUSION: Moderate stool and bowel gas throughout the colon otherwise negative. Valentin Kendrick MD FACR Renal Ultrasound 10/01/16 0000 Signed Impressions: Service Date/Time: Saturday, October 01, 2016 22:48 - CONCLUSION: Normal examination. Errol Ellison MD Chest X-Ray 09/30/16 0000 Signed Impressions: Service Date/Time: September 15:23 - CONCLUSION: Bibasilar airspace disease and probable associated effusions. Bertin Estrada MD Pelvis MRI 09/27/16 0000 Signed Impressions: Service Date/Time: Tuesday, September 27, 2016 14:38 - CONCLUSION: 1. 1.9 x 2.3 x 1.0 cm subcutaneous enhancing fluid collection consistent with subcutaneous abscess within the right scrotum. This appears to communicate with the skin surface. Clinical correlation is recommended. 2. Diffuse scotal swelling. Daniel Dickerson MD Scrotum Ultrasound 09/25/16 0000 Signed Impressions: Service Date/Time: Sunday, September 25, 2016 13:57 - CONCLUSION: Unremarkable study except for benign calcification involving the left testicle could be in the testicle itself or possibly outside of it. Jolanta Smith MD Pelvis CT 09/25/16 0000 Signed Impressions: Service Date/Time: Sunday, September 25, 2016 15:07 - CONCLUSION: 1. Air in the bladder could be acu genic or infectious. Urinalysis recommended. 2. Scrotal wall thickening. 3. Low lying right kidney. Flip Sandy MD Physical Exam GENERAL: awake and alert, not in respiratory distress. SKIN: Warm and dry. No generalized rash, no ecchymoses and no evidence of embolic lesions. HEAD: Atraumatic. Normocephalic. No temporal wasting, or tenderness. EYES: [place]calfe conjunctiva. No petechia or hemorrhage. Pupils equal, round and reactive to light. Extraocular movements full and intact. No scleral icterus. No injection or drainage. EARS, NOSE AND THROAT: Nose without bleeding or purulent nasal discharge. No sinus tenderness. Mucous membranes pink and moist. No oral lesions noted. No exudate. No oral thrush. NECK: Trachea midline. Supple and not tender, no meningeal signs CARDIOVASCULAR: Regular rate and rhythm. No murmurs, rubs or gallops heard RESPIRATORY: Clear to auscultation. Breath sounds equal bilaterally. No rales , wheezing or rhonchi ABDOMEN: Globular, mildly distended, not tender. Bowel sounds present and normoactive. No guarding. No rebound. No organomegaly. GENITOURINARY: Has erythema in scrotum, slightly better, worse on R than L, and has induration on R side, with mild tenderness, no fluctuance. Has an area posteriorly in R scrotum with linear opening that is about 1 cm long wth small amount of light yellow drainage. No penile drainage, penile shaft mild pink color, no induration EXTREMITIES: No clubbing, cyanosis, or edema.No joint effusion, has good ROM. No calf tenderness. Well perfused and warm. NEUROLOGICAL: Awake and alert. Cranial nerves grossly intact. Motor grossly within normal limits. PSYCHIATRIC: Normal affect, calm and cooperative. LINE: No evidence of infection Assessment & Plan Remarks IMPRESSION Scrotal abscess and cellulitis - S/P I and D, no C/S availabl - slow to improve UTI, E coli - repeat UC with Coag neg Staph, likely contaminant; UA better DM Renal insufficiency Episode of fluid overload, clinically better Episode of AF, better Persistent mild leukocytosis RECOMMENDATION Continue Invanz PICC Give 14 days Invanz OK to D/C once arrangements made Stop vanco Explained plan to patient D/W RN D/W Dr Alexis ([facility] resident) Mary Pace MD Oct 08, 2016 14:22
--- NOTE | 2016-10-08 15:41 | HHI.FPPN ---
Subjective Remarks Pt says he is feeling well and having less pain in his scrotal region, but still has some redness. He is bothered by his bilateral foot neuropathy, but this is not new for him. He expresses desire to go home as soon as possible. He is glad that he is able to sleep instead of having his BG checked in the middle of the night. He denies chest pain, SOB, fever, urinary changes, changes in BMs , nausea/vomiting, abdominal pain, and dizziness. Objective Vitals Vital Signs Date Time Temp Pulse Resp B/P Pulse Ox O2 Delivery O2 Flow Rate FiO2 10/08/16 12:24 97.5 57 16 170/80 100 10/08/16 09:12 Room Air 10/08/16 09:07 97.8 71 16 180/83 97 10/08/16 04:45 97.6 65 18 151/84 93 10/08/16 01:36 97.9 68 18 173/83 97 10/08/16 01:00 Room Air 10/07/16 21:08 98.1 54 18 171/79 96 10/07/16 16:00 98.0 58 18 160/77 94 I/O 10/07/16 10/07/16 10/07/16 10/08/16 10/08/16 10/08/16 07:00 15:00 23:00 07:00 15:00 23:00 Intake Total 240 ml Output Total 300 ml Balance -60 ml Intake Oral 240 ml Output Urine Total 300 ml # Voids 4 3 # Bowel Movements 1 0 Result Diagram: 10/07/16 0740 10/07/16 0740 Imaging Last Impressions Abdomen X-Ray 10/03/16 0000 Signed Impressions: Service Date/Time: Monday, October 03, 2016 10:10 - CONCLUSION: Moderate stool and bowel gas throughout the colon otherwise negative. Valentin Kendrick MD FACR Renal Ultrasound 10/01/16 0000 Signed Impressions: Service Date/Time: Saturday, October 01, 2016 22:48 - CONCLUSION: Normal examination. Errol Ellison MD Chest X-Ray 09/30/16 0000 Signed Impressions: Service Date/Time: September 15:23 - CONCLUSION: Bibasilar airspace disease and probable associated effusions. Bertin Estrada MD Pelvis MRI 09/27/16 0000 Signed Impressions: Service Date/Time: Tuesday, September 27, 2016 14:38 - CONCLUSION: 1. 1.9 x 2.3 x 1.0 cm subcutaneous enhancing fluid collection consistent with subcutaneous abscess within the right scrotum. This appears to communicate with the skin surface. Clinical correlation is recommended. 2. Diffuse scotal swelling. Daniel Dickerson MD Scrotum Ultrasound 09/25/16 0000 Signed Impressions: Service Date/Time: Sunday, September 25, 2016 13:57 - CONCLUSION: Unremarkable study except for benign calcification involving the left testicle could be in the testicle itself or possibly outside of it. Jolanta Smith MD Pelvis CT 09/25/16 0000 Signed Impressions: Service Date/Time: Sunday, September 25, 2016 15:07 - CONCLUSION: 1. Air in the bladder could be acu genic or infectious. Urinalysis recommended. 2. Scrotal wall thickening. 3. Low lying right kidney. Flip Sandy MD Objective Remarks GENERAL: Well-nourished, well-developed patient. No acute distress. SKIN: Warm and dry. No rash. EYES: No scleral icterus. No injection or drainage. HENT: Normocephalic. Atraumatic. MMM. NECK: No visible JVD or lymphadenopathy. CARDIOVASCULAR: Regular rate and rhythm, normal S1/S2, No M/R/G RESPIRATORY: Expiratory wheezes at the bases, improved. Equal bilaterally. No crackles or rhonchi. GASTROINTESTINAL: Abdomen non tender, soft, mildly distended, +BS. : Scrotum and shaft of penis are erythematous and edematous, with some improvement in swelling from previous exams. Scrotum and penis tender to light touch, but improved. NEURO/PSYCH: Afocal. Awake, alert. Medications and IVs Current Medications Medications (Trade) Dose Ordered Sig/Lela Route Start Time Stop Time Status Last Admin (NS Flush) 2 ml BID IV FLUSH 09/25/16 21:00 10/08/16 08:58 Sodium Chloride 2 ml 2 ml UNSCH PRN IV FLUSH 09/25/16 17:00 Sodium Chloride 1,000 ml @ 125 mls/hr Q8H IV 09/25/16 17:00 Hold 09/29/16 14:30 (Vancomycin Consult Pharmacy) 0 ml @ 0 mls/hr UNSCH OTHER 09/25/16 17:00 (Cosby 5-325 Mg) 1 tab Q4H PRN PO 09/25/16 17:00 10/08/16 14:37 (Lovenox Inj) 40 mg Q24H SQ 09/25/16 18:00 10/07/16 16:58 (Morphine Inj) 4 mg Q3H PRN IV 09/25/16 17:15 10/03/16 10:22 (Narcan Inj) 0.4 mg UNSCH PRN IV 09/25/16 17:15 (Symbicort 80-4.5 Mcg Inh) 1 puff Q12HR INH 09/25/16 21:00 10/08/16 08:58 (Lyrica) 200 mg BID PO 09/25/16 21:00 10/08/16 08:58 (Flomax) 0.4 mg HS PO 09/25/16 21:00 10/07/16 22:01 (Restoril) 15 mg HS PRN PO 09/27/16 00:30 09/29/16 21:11 Acetaminophen/ Hydrocodone Bitart 1 tab 1 tab Q4H PRN PO 09/29/16 13:00 10/07/16 21:59 Diltiazem HCl 125 mg/Sodium Chloride 125 ml @ 0 mls/hr TITRATE IV 09/30/16 14:45 09/30/16 15:24 (KCl 20 Meq Premix Inj) 100 ml @ 50 mls/hr Q2H IV 09/30/16 17:00 09/30/16 20:59 Hold (Levemir Inj) 24 units BID SQ 10/01/16 09:00 10/08/16 08:52 (D50w (Vial) Inj) 50 ml UNSCH PRN IV 10/01/16 07:15 Glucagon 1 mg 1 mg UNSCH PRN OTHER 10/01/16 07:15 (Vancomycin Inj/ NS 500 ml Inj) 515 ml @ 257.5 mls/ hr Q24H IV 10/03/16 11:00 10/08/16 11:15 (Apresoline) 10 mg Q6H PRN PO 10/03/16 16:00 10/07/16 06:25 (Mycostatin Powder) 1 applic Q12HR TOPICAL 10/04/16 09:00 10/08/16 08:59 (Katie-Colace) 1 tab BID PO 10/04/16 09:15 10/07/16 22:01 (Epsom Salt) 454 gm Q24H PRN OTHER 10/05/16 15:00 Prednisone 30 mg 30 mg BID PO 10/06/16 21:00 10/08/16 08:58 (INVanz INJ/NS Inj) 100 ml @ 200 mls/hr Q24H IV 10/07/16 15:00 10/08/16 14:17 (Prinivil) 10 mg BID PO 10/07/16 21:00 10/08/16 08:57 A/P Assessment and Plan 51-year-old male with history of diabetes and COPD presents with penile and testicle swelling after I&D. Failed outpatient antibiotics. Admitted for IV antibiotics and consultation to urologist. Second I&D in hospital. Discharge Planning Pending outpatient antibiotic recommendation by infectious disease. Problem List: (1) Cellulitis of scrotum Status: Acute Plan: Mild improvement in the swelling. Patient still complaining of severe pain and does not feel that the swelling has improved. He is irritated at this time with a progress of his infection/hospitalization. -Urology consulted -appreciate recs and intervention -Pt known to Dr. Herrera -Continue Vancomycin q12H, pharmacy consult -Continue Zosyn 3.375g q6h -MRI pelvis completed, s/p I&D 09/30 -Blood culture no growth to date (2) Diabetes Status: Acute Plan: History of chronic diabetes on insulin. Patient is on Levemir 24 units twice a day and Humalog sliding scale 3 times a day. -Levemir 24 units BID, pt is now on IV steroids which will impact blood sugar. -Low dose sliding scale insulin -Monitor blood glucose levels -May need to adjust long-acting insulin pending glucose levels (3) HAYLEY (acute kidney injury) Status: Acute Plan: Creatinine overall downtrending, continue to monitor. -Nephrology consulted, appreciate recommendations. -Possibly due to medication -Avoid nephrotoxic medications and renally dose medications as indicated (4) UTI (urinary tract infection) Status: Acute Plan: Urine culture Escherichia coli Antibiotics as above (5) Abdominal distension Status: Resolved Plan: Abdominal distension at baseline -Continue current bowel regimen -Abdominal X-ray with significant amount of stool and gas, otherwise negative (6) COPD (chronic obstructive pulmonary disease) Status: Chronic Plan: History of chronic COPD, on nebulizer, Symbicort. Shortness of breath also likely exacerbated by CHF. Breathing stable -PO steroids: Prednisone 30 mg PO BID -Continue Symbicort -DuoNeb's every 4 hours -Albuterol PRN -Continue to monitor (7) Hypertension Status: Chronic Plan: History of hypertension. Increased over night -lisinopril increased to 10mg bid, continue to monitor -Hydralazine PRN -Consider increasing medication dosage and/or changing current medication regimen (8) Tobacco abuse Status: Chronic Plan: Pt smoking 1 PPD, not interested in quitting at this time -Counseled on risks of smoking and benefits of quitting (9) FEN Status: Acute Plan: Fluids: Taking in adequate PO Electrolytes: continue to monitor replace according Nutrition: Diabetic diet DVT ppx: Lovenox Problem Qualifiers (1) Diabetes: Qualified Code: E11.59 - Type 2 diabetes mellitus with other circulatory complication, with long-term current use of insulin (2) UTI (urinary tract infection): Qualified Code: N30.00 - Acute cystitis without hematuria (3) COPD (chronic obstructive pulmonary disease): Qualified Code: J44.9 - Chronic obstructive pulmonary disease, unspecified COPD type (4) Hypertension: Qualified Code: I10 - Essential hypertension Ben Preciado MD R1 Oct 08, 2016 15:41
[2016-10-08 16:30] VITALS: BP 193/89; PULSE 53; RESP 16; TEMP 97.6; O2SAT 95
--- NOTE | 2016-10-08 16:58 | HHI.NPPN ---
Subjective History of Present Illness 61 year old with Diabetes, ARF, Afib, groin infection Additional Remarks Patient is alert, breathing is better, no abd. pain, started eating better. Review of Systems General Constitutional: Fatigue Objective Data Data 10/07/16 10/08/16 19:00 07:00 Intake Total 240 ml Output Total 300 ml Balance -60 ml Intake Oral 240 ml Output Urine Total 300 ml # Voids 3 # Bowel Movements 0 Vital Signs Date Time Temp Pulse Resp B/P Pulse Ox O2 Delivery O2 Flow Rate FiO2 10/08/16 16:30 97.6 53 16 193/89 95 10/08/16 12:24 97.5 57 16 170/80 100 10/08/16 09:12 Room Air 10/08/16 09:07 97.8 71 16 180/83 97 10/08/16 04:45 97.6 65 18 151/84 93 10/08/16 01:36 97.9 68 18 173/83 97 10/08/16 01:00 Room Air 10/07/16 21:08 98.1 54 18 171/79 96 -: 10/07/16 0740 10/07/16 0740 Physical Exam General Appearance: Well Developed, Well Nourished, No Acute Distress, Comfortable Neck Neck Exam: Neck Supple Pulmonary Resp Exam: Clear Bilaterally, Breath Sounds Equal Cardiology CV Exam: Regular, Normal Sinus Rhythm Gastrointestinal/Abdomen GI Exam: Soft, Non-Tender, Bowel Sounds Present Extremeties Extremities Exam: No Edema Neurologic Neuro Exam: Alert, Awake, Oriented Psychiatric Psych Exam: Appropriate Responses Assessment/Plan Problem List: (1) Acute renal failure Plan: cr declined to 1.[address] Charles to follow on Tuesday (2) Diabetes type 2, uncontrolled Plan: stable (3) UTI (urinary tract infection) Plan: E coli on Zosyn (4) Cellulitis of scrotum Plan: urology following on Vanco Plan Patient has been non oliguric. Creatinine is improving, On Vancomycin, follow the Vanco. level. Avoid Nephrotoxins. BP is elevated, started on Lisinopril, will increase the dose. Creatinine is stable, K is normal. Has Acute kidney injury, BP is still elevated, add Amlodipine, on Lisinopril. Problem Qualifiers (1) Diabetes type 2, uncontrolled: (2) UTI (urinary tract infection): Qualified Code: N30.00 - Acute cystitis without hematuria Alex Charles MD Oct 08, 2016 16:57
[2016-10-08] MEDS: ENOXAPARIN SODIUM 40 MG/0.4 ML SYRINGE SQ SCH ×2 (17:54→17:59)
[2016-10-08] MEDS: hydrALAZINE HCL 10 MG TAB PO PRN (17:54)
[2016-10-08] MEDS ORDERED: HYDR-3583 PO (17:56)
--- NOTE | 2016-10-08 18:30 | HHI.FF ---
Face to Face Verification Diagnosis: (1) Diabetes (2) COPD (chronic obstructive pulmonary disease) (3) UTI (urinary tract infection) (4) Cellulitis of scrotum (5) Atrial fibrillation with RVR (6) HAYLEY (acute kidney injury) (7) Hypertension (8) DM type 2, uncontrolled, with neuropathy (9) Anxiety disorder Home Health Nursing Order: Medical education Wound care and dressing changes Nursing assessment with vital signs IV medication administration I have seen patient Vin Blair on 10/08/16. My clinical findings support the need for the requested home health care services because: Ltd mobility - disease progression Patient has SOB Med compliance is questionable High risk of falls I certify that my clinical findings support that this patient is homebound because: Hx COPD- exertion dyspnea/weakness Unsteady gait/balance Shayy Alexis MD R3 Oct 08, 2016 18:30
[2016-10-08] MEDS ORDERED: NYST10007 TOPICAL (18:37)
[2016-10-08] MEDS ORDERED: PRED10 PO (18:37)
[2016-10-08] MEDS ORDERED: SENN1TAB PO (18:37)
--- NOTE | 2016-10-08 18:42 | HHI.DS ---
Discharge Summary Admission Date Sep 26, 2016 at 10:02 Admitting Diagnosis scrotal cellulitis, groin swelling, hyperglycemia (1) Cellulitis of scrotum Plan: Mild improvement in the swelling. Patient still complaining of severe pain and does not feel that the swelling has improved. He is irritated at this time with a progress of his infection/hospitalization. -Urology consulted -appreciate recs and intervention -Pt known to Dr. Herrera -Continue Vancomycin q12H, pharmacy consult -Continue Zosyn 3.375g q6h -MRI pelvis completed, s/p I&D 09/30 -Blood culture no growth to date (2) Diabetes Plan: History of chronic diabetes on insulin. Patient is on Levemir 24 units twice a day and Humalog sliding scale 3 times a day. -Levemir 24 units BID, pt is now on IV steroids which will impact blood sugar. -Low dose sliding scale insulin -Monitor blood glucose levels -May need to adjust long-acting insulin pending glucose levels (3) HAYLEY (acute kidney injury) Plan: Creatinine overall downtrending, continue to monitor. -Nephrology consulted, appreciate recommendations. -Possibly due to medication -Avoid nephrotoxic medications and renally dose medications as indicated (4) UTI (urinary tract infection) Plan: Urine culture Escherichia coli Antibiotics as above (5) Abdominal distension Plan: Abdominal distension at baseline -Continue current bowel regimen -Abdominal X-ray with significant amount of stool and gas, otherwise negative (6) COPD (chronic obstructive pulmonary disease) Plan: History of chronic COPD, on nebulizer, Symbicort. Shortness of breath also likely exacerbated by CHF. Breathing stable -PO steroids: Prednisone 30 mg PO BID -Continue Symbicort -DuoNeb's every 4 hours -Albuterol PRN -Continue to monitor (7) Hypertension Plan: History of hypertension. Increased over night -lisinopril increased to 10mg bid, continue to monitor -Hydralazine PRN -Consider increasing medication dosage and/or changing current medication regimen (8) Tobacco abuse Plan: Pt smoking 1 PPD, not interested in quitting at this time -Counseled on risks of smoking and benefits of quitting (9) FEN Plan: Fluids: Taking in adequate PO Electrolytes: continue to monitor replace according Nutrition: Diabetic diet DVT ppx: Lovenox Brief History 61-year-old male with history of diabetes since with scrotal swelling. Patient patient had a incision and drainage of scrotal abscess on September [address] Herrera. He was sent home on Bactrim. Patient states weeks after the surgery, he started feeling worse. States he started having penile swelling testicle swelling. He was recommended to start ointment after seeing Dr. Herrera , but did not use any of it. He states it is painful, especially when moving. States the pain is 5 out of 10. Dorsal some drainage. No issues with urination. Is having some dysuria. Has any rash or swelling anywhere else. Has a history of MRSA. Has any fever/chills, night sweats, chest pain, pain in his legs. Endorses cough and shortness of breath. No abdominal pain, constipation/ diarrhea. He also mentions that his sugars were running high recently. States it was 660 at home. He checks it several times a day. Insulin in the morning and evening and sliding scale. He stopped taking his insulin on Tuesday this week. Says he felt tired and didn't want to take it anymore. CBC/BMP: 10/07/16 0740 10/07/16 0740 Significant Findings Laboratory Tests Test 10/06/16 10/07/16 10/07/16 08:25 07:40 14:40 White Blood Count 12.8 TH/MM3 12.9 TH/MM3 (4.0-11.0) (4.0-11.0) Hemoglobin 12.9 GM/DL 12.8 GM/DL (13.0-17.0) (13.0-17.0) Hematocrit 38.9 % (39.0-51.0) Blood Urea Nitrogen 38 MG/DL (7-18) 36 MG/DL (7-18) Creatinine 1.35 MG/DL 1.32 MG/DL (0.60-1.30) (0.60-1.30) Estimat Glomerular Filtration 54 ML/MIN (>89) 55 ML/MIN (>89) Rate Random Glucose 185 MG/DL 136 MG/DL (74-106) (74-106) Vancomycin Level Trough 15.8 MCG/ML (5.0-10.0) Mean Corpuscular Hemoglobin 26.5 PG (27.0-34.0) Mean Corpuscular Hemoglobin 31.7 % Concent (32.0-36.0) Neutrophils (%) (Auto) 81.0 % (16.0-70.0) Neutrophils # (Auto) 10.4 TH/MM3 (1.8-7.7) Neutrophils % (Manual) 82 % (16-70) Neutrophils # (Manual) 11.2 TH/MM3 (1.8-7.7) Myelocytes 2 % (0-0) Platelet Morphology Comment ENLARGED (NORMAL) Urine Turbidity HAZY (CLEAR) Urine Leukocyte Esterase SMALL (NEG) Urine RBC 64 /hpf (0-3) Urine WBC 11 /hpf (0-5) Urine Yeast with Hyphae MANY (NONE) Urine Yeast (Budding) MANY (NONE) PE at Discharge GENERAL: Well-nourished, well-developed patient. No acute distress. SKIN: Warm and dry. No rash. EYES: No scleral icterus. No injection or drainage. HENT: Normocephalic. Atraumatic. MMM. NECK: No visible JVD or lymphadenopathy. CARDIOVASCULAR: Regular rate and rhythm, normal S1/S2, No M/R/G RESPIRATORY: Expiratory wheezes at the bases, improved. Equal bilaterally. No crackles or rhonchi. GASTROINTESTINAL: Abdomen non tender, soft, mildly distended, +BS. : Scrotum and shaft of penis are erythematous and edematous, with some improvement in swelling from previous exams. Scrotum and penis tender to light touch, but improved. NEURO/PSYCH: Afocal. Awake, alert. Pt Condition on Discharge: Stable Discharge Disposition: Disch w/ Home Health Serv Discharge Instructions DIET: Follow Instructions for: Diabetic Diet Activities you can perform: Regular-No Restrictions Other Activity Instructions: Daily sitz baths Ben Preciado MD R1 Oct 08, 2016 18:42
[2016-10-08 19:16] LABS: HEMATOCRIT 41.7 % (39.0-51.0); MEAN CELL VOLUME 84.3 FL (80.0-100.0); MEAN CORPUSCULAR HEMOGLOBIN 26.8 PG (27.0-34.0); MEAN CORPUSCULAR HGB CONC 31.8 % (32.0-36.0); PLATELET COUNT 196 TH/MM3 (150-450); RED BLOOD COUNT 4.95 MIL/MM3 (4.50-5.90); RED CELL DISTRIBUTION WIDTH 14.5 % (11.6-17.2); REVIEW FLAG FINAL; WHITE BLOOD COUNT 13.4 TH/MM3 (4.0-11.0)
[2016-10-08 19:40] LABS: BICARBONATE 27.1 MEQ/L (21.0-32.0); POTASSIUM 4.2 MEQ/L (3.5-5.1)
[2016-10-08] MEDS: ACETAMINOPHEN/HYDROcodone 325 MG/10 MG TAB PO PRN (20:23)
[2016-10-08] MEDS ORDERED: amLODIPine BESYLATE 5 MG TAB PO SCH (21:00)
== END 2016-10-08 21:00 | disposition home health service (06) | DRG 728 ==
LOC: NEPE 12:23 → NEDA 15:56 → NEPGCP 19:01 → OBSVTOIN 09-26 10:02 → HOCB 09-26 15:57 → N03B 09-30 13:49 → N03A 09-30 21:59 → N05A 10-03 14:49
PROVIDERS: ADMIT Family Medicine; ATTEND Family Medicine
PROC: 0V950ZX Drainage of Scrotum, Open Approach, Diagnostic (ICD-10-PCS; principal; 2016-09-30 10:39)
PROC: 0TJB8ZZ Inspection of Bladder, Via Natural or Artificial Opening Endoscopic (ICD-10-PCS; 2016-09-30 10:39)
DX: N49.2 Inflammatory disorders of scrotum (principal); N17.9 Acute kidney failure, unspecified; E11.40 Type 2 diabetes mellitus with diabetic neuropathy, unspecified; E11.65 Type 2 diabetes mellitus with hyperglycemia; B36.9 Superficial mycosis, unspecified; I11.0 Hypertensive heart disease with heart failure; I50.20 Unspecified systolic (congestive) heart failure; J44.1 Chronic obstructive pulmonary disease with (acute) exacerbation; F17.210 Nicotine dependence, cigarettes, uncomplicated; I48.0 Paroxysmal atrial fibrillation; N39.0 Urinary tract infection, site not specified; Z99.81 Dependence on supplemental oxygen; F41.9 Anxiety disorder, unspecified; K21.9 Gastro-esophageal reflux disease without esophagitis; I73.9 Peripheral vascular disease, unspecified; K59.00 Constipation, unspecified; B96.20 Unspecified Escherichia coli [E. coli] as the cause of diseases classified elsewhere; E66.9 Obesity, unspecified; F25.9 Schizoaffective disorder, unspecified; Z79.4 Long term (current) use of insulin; Z68.31 Body mass index [BMI] 31.0-31.9, adult; Z86.14 Personal history of Methicillin resistant Staphylococcus aureus infection; Z79.84 Long term (current) use of oral hypoglycemic drugs
CPT/HCPCS: 36569; 51702; 71010; 72193; 72197; 74000; 76775; 76870; 76937; 80048; 80053; 80202; 81001; 82010; 82570; 82948; 83605; 83735; 83880; 83935; 84100; 84300; 84443; 84484; 85007; 85025; 85027; 85610; 85730; 86140; 86403; 87040; 87077; 87086; 87106; 87186; 87205; 93005; 93306; 93975; 94640; 94664; 96365; 96372; 96375; 96376; A9579; G0378; J0360; J0696; J1335; J1650; J1815; J1940; J2250; J2270; J2370; J2405; J2543; J2710; J2930; J3010; J3370; J3475; J7030; J7040; J7050; J7512; J7613; Q9967

== ENCOUNTER → 2017-06-16 | Day surgery (SDC) | payer MEDICARE, MEDICAID ==
[~2017-06-16] VITALS: Ht 165.1 cm; Wt 80.9 kg
[~2017-06-16] MED LIST changes: +*RESP: ALBUTEROL 2.5 MG/3 ML NEB (PRN) PERIprocedural Use ONLY NEB ONE; +*morphine SULFATE 4 MG/ML PERIprocedure ONLY ONE; +ACETAMINOPHEN/HYDROcodone 325 MG/10 MG TAB PO PRN; +BELLADONNA ALKALOIDS/OPIUM 60 MG SUPP RECTAL SCH; +CHLORHEXIDINE GLUCONATE 2 % 1 PACK (2 CLOTHS) TOPICAL PRN; +CIPR-9 PO; +DO NOT ADM ANY ANTICOAGULANT DRUGS PRN; +GENTAMICIN SULFATE 80 MG/2 ML VIAL ONE; -GLUCTES12; -HYDR-3288 PO; -HYDR-3533 PO; +HYDR-3583 PO; +INSULIN HUMAN REGULAR 1,000 UNITS/10 ML VIAL SQ PRN; +LACTATED RINGER'S 1000 ML IV PRN; +LIDOCAINE HCL 1% PF 5 ML SYRINGE OTHER ONE; +METF500T4 PO; +METOPROLOL TARTRATE 25 MG TAB PO PRN; +METOPROLOL TARTRATE 5 MG/5 ML VIAL IV PUSH ONE; +METOPROLOL TARTRATE 5 MG/5 ML VIAL ONE; +MORPHINE SULFATE 4 MG/ML INJ IV PRN; -NYST100084 TOPICAL; +ONDANSETRON HCL 4 MG/2 ML VIAL IV PUSH PRN; +ONETTES4; +PHENYLEPH/NS 1000 MCG/10 ML SYR IV ONE; +POVIDONE IODINE 5% (ANTISEPSIS KIT) 4 APPLICATIONS EACH NARE PRN; -PRED20 PO; +PROPOFOL 200 MG/20 ML AMP IV ONE; +SODIUM CHLORID 0.9% 500 ML IV PRN; -SULF1TAB23 PO; -TAMS5CAP PO; +VECURONIUM BROMIDE 20 MG VIAL IV ONE; -[UNRECOGNIZED DRUG - SUPPLY]; +ceFAZolin 1,000 MG/NS 100 ML IV SCH; +ePHEDrine/NS 25 MG/5 ML SYRINGE IV ONE; +fentaNYL CITRATE 250 MCG/5 ML AMP ONE
[2017-06-16 11:38] LABS: BASOPHIL # 0.1 TH/MM3 (0-0.2); BASOPHIL % 0.5 % (0.0-2.0); EOSINOPHIL # 0.1 TH/MM3 (0-0.4); EOSINOPHIL % 0.9 % (0.0-4.0); HEMATOCRIT 45.9 % (39.0-51.0); HEMOGLOBIN 14.9 GM/DL (13.0-17.0); LYMPH % 16.3 % (9.0-44.0); LYMPHOCYTE # 2.1 TH/MM3 (1.0-4.8); MEAN CELL VOLUME 81.2 FL (80.0-100.0); MEAN CORPUSCULAR HEMOGLOBIN 26.4 PG (27.0-34.0); MEAN CORPUSCULAR HGB CONC 32.5 % (32.0-36.0); MEAN PLATELET VOLUME 8.8 FL (7.0-11.0); MONO % 5.9 % (0.0-8.0); MONOCYTE # 0.8 TH/MM3 (0-0.9); NEUT % 76.4 % (16.0-70.0); PLATELET COUNT 259 TH/MM3 (150-450); RED BLOOD COUNT 5.65 MIL/MM3 (4.50-5.90); RED CELL DISTRIBUTION WIDTH 15.7 % (11.6-17.2); WHITE BLOOD COUNT 13.1 TH/MM3 (4.0-11.0)
--- NOTE | 2017-06-16 12:50 | PD.OP ---
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 The patient had ongoing swelling of the perineum and decision made to replace his suprapubic tube. Risk and benefits were discussed preoperatively and the patient was willing to proceed. The patient brought the operating room and identified by myself as Vin Lopez. He was placed in the dorsal lithotomy position, prepped and draped in sterile fashion, received preprocedure antibiotics and general LMA anesthesia was administered. Urethral sounds starting with an 18F up to a 24F were used to perform urethral dilatation. The flexible cystoscope was then inserted in the bladder and pritchett cystoscopy did not reveal any abnormalities. 0>5% Marcaine was then used to infiltrate the area of the suprapubic region and then the lousy retractor was inserted into the bladder and palpated at the area of the skin. 15 blade was then used to make the initial incision. The Bovie cautery was then utilized to cut down to the fashion and the lousy retractor penetrated through the skin. The 22 [place] Broderick catheter was grasped by the lousy and brought into the bladder. The balloon was then filled with 20 cc of sterile water. Cystoscopic examination confirmed presence of the catheter. The bladder was evacuated and he was awoken and transferred recovery in stable condition. He will follow-up in the office in 1 month to undergo suprapubic catheter change. Juan Ramon Herrera DO Jun 16, 2017 12:50
[2017-06-16 15:13] VITALS: BP 122/62; PULSE 84; RESP 20; TEMP 97.6; O2SAT 98
== END | disposition home or self-care (01) ==
LOC: HSDC 10:12
PROVIDERS: ATTEND Urology
DX: N35.9 Urethral stricture, unspecified (principal); N36.0 Urethral fistula; I10 Essential (primary) hypertension; E11.9 Type 2 diabetes mellitus without complications; J44.9 Chronic obstructive pulmonary disease, unspecified
CPT/HCPCS: 00800; 51102; 85025; 94610; J0690; J1580; J1815; J2270; J2370; J3010; J7120; J7613